=== PATIENT | female | born 1975 | race Caucasian/White ===

== ENCOUNTER → 2018-12-17 16:34 | Outpatient (CLI) | payer BC, SELFPAY ==
[2018-12-17 18:30] LABS: Anion Gap 3 (5-15); BUN 17 mg/dL (7-18); BUN/Creat Ratio 13.6 RATIO (10-20); Calcium,Total 8.6 mg/dL (8.5-10.1); Chloride 104 mmol/L (98-107); Creatinine, Serum 1.25 mg/dL (0.55-1.02); EST Glomerular Filtration Rate 50 mL/min (>60); Est Glom Filt Rate - Afr Amer 60 mL/min (>60); Glucose 79 mg/dL (74-106); Magnesium 2.4 mg/dL (1.6-2.6); Potassium 3.6 mmol/L (3.5-5.1); Sodium Level 135 mmol/L (136-145)
[2018-12-17 18:35] LABS: Vitamin B12 387 pg/mL (211-911); Vitamin D,25 Hydroxy 15.2 ng/mL (29.95-100.01)
== END ==
PROVIDERS: Family Provider Preventive Medicine Occupational Medicine; PCP Preventive Medicine Occupational Medicine; Referring Provider Preventive Medicine Occupational Medicine; Visit Provider Preventive Medicine Occupational Medicine
DX: E03.9 Hypothyroidism, unspecified (principal); R25.2 Cramp and spasm; R20.2 Paresthesia of skin
CPT/HCPCS: 36415; 80048; 82306; 82607; 82746; 83735; 84443

== ENCOUNTER 2018-12-30 09:38 | Emergency (ER) | payer BC, SELFPAY ==
[2018-12-30 09:39] VITALS: BP 155/83; PULSE 113; RESP 16; TEMP 36.9; O2SAT 100; BMI 25.7
--- NOTE | 2018-12-30 09:41 | NURSING ---
NO OLD EKGS
[2018-12-30 09:45] VITALS: BP 135/80; PULSE 117; RESP 13; O2SAT 100
--- NOTE | 2018-12-30 10:01 | EKG12_ITS ---
Test Reason : INCREASED HR Blood Pressure : / mmHG Vent. Rate : 122 BPM Atrial Rate : 122 BPM P-R Int : 150 ms QRS Dur : 088 ms QT Int : 318 ms P-R-T Axes : 080 081 050 degrees QTc Int : 453 ms Sinus tachycardia Nonspecific ST/T Wave Abnormality Confirmed by LATIA SAEED, STEVEN ([id number]), medical transcription editor OBI SAAVEDRA ([id number]) on 01/01/2019 1:17:11 PM Referred By: LUCY Confirmed By:STEVEN JEFFERY MD
--- NOTE | 2018-12-30 10:04 | ED.VISSUMM ---
- ER Visit Summary Date of Service: 12/30/18 Chief Complaint: Palpitation History of Present Illness: The patient is a [address] Ann. She reports that at 8:00 this morning she began having palpitations. Feels as though her heart is racing. States that she is lightheaded. This gets worse when she stands. She has not passed out. She will report this made her slightly sweaty. She denies any chest pain, pressure, or tightness. No nausea, vomiting, or shortness of breath with this. Patient reports that approximately 10 days ago she had her levothyroxine increased from 200 mg a day to 200 mg on even days and 300 mg on odd days. She is not taking this this morning. She did take 300 mg yesterday. She had one cup of coffee this morning on empty stomach. However, this is not unusual for her. Patient has no personal family history of DVT. No recent travel. No calf pain or ankle swelling. She denies any chest pain or change in disinsertion the past month. Physical Examination: Vitals: 98.4, 135/80, 117, 13, 100% on room air which is not hypoxic. General: Well-nourished and well-developed. Head: Normocephalic atraumatic. Neck: Supple, no lymphadenopathy. No JVD. Nontender. Cardiovascular: Tachycardic regular rhythm. No murmurs. Respiratory: No respiratory distress. Clear to auscultation bilaterally. Abdominal: Soft, nontender, nondistended, normal bowel sounds. No guarding, rebound, or peritoneal signs. Back: Nontender. Extremities: Nontender, no edema. Skin: Normal color, no rash. Neurologic: Alert and oriented ?3. Cranial nerves II through XII are intact. Normal strength and sensation. Psych: Normal affect. Test Results: EKG is sinus tach at [address] changes. There is a T wave inversion in lead III. There is artifact from movement. There is no old EKG for comparison. CBC shows a white count of 4.2. Chem-7 shows potassium 3.3, creatinine 1.13, glucose 124. Troponin is negative. TSH is 3.84. Chest x-ray shows no acute disease. Emergency Department Course and Treatment: Patient had a TSH of 65.3 on December 17. She had an IV placed. She was given 1 L of normal saline. Repeat heart rate is in the high 90s. She is resting comfortably. Treatment Plan: Patient feels well and would like to go home. She will be discharged instructions push fluids. I did discuss that she needs follow-up with Dr. Ann for further evaluation and treatment. She does need to make sure that her TSH has stabilized on her new medications. She is instructed not to drink coffee on an empty stomach. Return to the emergency department for any worsening symptoms. Disposition: To home in improved and stable condition. Impression: 1. Sinus tachycardia. This note was generated with [employer] dictation software. It may contain incorrect words, spelling, and punctuation that were not noted in review of the chart prior to signing ED Disposition - Plan for ED Patient: Instructions: ED Palpitations Referrals: Meliton Mcmahon DO [Primary Care Provider] - 3-5 Days
--- NOTE | 2018-12-30 10:15 | RAD_ITS ---
STUDY: X-RAY CHEST REASON FOR EXAM: Female, 43 years old. Chest pain TECHNIQUE: Single AP portable view of the chest. COMPARISON: None. FINDINGS: There is hyperinflation of the lungs consistent with chronic obstructive lung disease (COPD). Lungs are clear. There is no demonstrated pleural abnormality. Normal size heart. Normal mediastinum and fco. Normal visualized pulmonary arteries. Normal visualized aortic arch and descending thoracic aorta. Normal visualized thoracic spine. Normal visualized ribs, clavicles, and shoulders. There is no demonstrated abnormality of the visualized soft tissue structures of the upper abdomen. RAD/Chest 1 View (Portable) IMPRESSION: COPD. Lungs are clear. Electronically Signed: Hua Vazquez DO at 10:49 EDT Tel , Service support ,
[2018-12-30 10:24] LABS: Absolute Neutrophil Count 2.2 X10^3/uL (2.0-7.7); Basophil# 0.01 X10^3/uL; Basophil% 0.2 % (0-1); Eosinophil# 0.01 X10^3/uL; Eosinophils% 0.2 % (0-5); Hematocrit 37.6 % (37-47); Lymphocyte % 37.7 % (19-41); Mean Corp Hgb Conc 31.9 g/gl (32-36); Mean Corpuscular Hgb 28.4 pg (27.0-32.0); Mean Corpuscular Volume 89.1 fL (81-99); Mean Platelet Vol. 11.3 fl (6.2-12.0); Monocyte# 0.38 X10^3/uL; Neutrophil # 2.24 X10^3/uL (2.7-7.7); Neutrophil % 52.9 % (47-70); Platelet Count 252 K/mm3 (150-450); RBC Distribution Width CV 13.9 % (11.6-14.6); RBC Distribution Width SD 44.5 fl (35.1-43.9); Red Blood Count 4.22 M/mm3 (4.2-5.4); White Blood Count 4.2 K/mm3 (4.4-11.0)
[2018-12-30] MEDS: 0.9% Normal Saline 1,000 ML 1000 ML IV (10:24)
[2018-12-30 10:27] LABS: POSITIVE COUNT NO; POSITIVE DIFFERENTIAL NO; POSITIVE MORPHOLOGY NO
[2018-12-30 10:36] LABS: Anion Gap 9 (5-15); BUN 15 mg/dL (7-18); BUN/Creat Ratio 13.3 RATIO (10-20); Chloride 103 mmol/L (98-107); Creatinine, Serum 1.13 mg/dL (0.55-1.02); EST Glomerular Filtration Rate 56 mL/min (>60); Est Glom Filt Rate - Afr Amer 68 mL/min (>60); Estimated Creatinine Clearance 63.07 ml/min; Glucose 124 mg/dL (74-106); Magnesium 1.9 mg/dL (1.6-2.6); Potassium 3.3 mmol/L (3.5-5.1); Sodium Level 136 mmol/L (136-145); Thyroid Stim Hormone (TSH) 3.84 uIU/mL (0.358-3.74)
--- NOTE | 2019-01-02 10:13 | ED.RN ---
2nd liter not given due to d/c.
== END 2018-12-30 11:29 | disposition home or self-care (01) ==
LOC: ED 10:08
PROVIDERS: Emergency Provider Emergency Medicine; Family Provider Preventive Medicine Occupational Medicine; PCP Preventive Medicine Occupational Medicine
DX: R00.0 Tachycardia, unspecified (principal); E03.9 Hypothyroidism, unspecified
CPT/HCPCS: 71045; 80048; 83735; 84443; 84484; 85025; 93005; 96360; 99285; J7030; A4216

== ENCOUNTER → 2020-06-04 10:35 | Outpatient (CLI) | payer BC, SELFPAY | PROVIDERS: PCP Preventive Medicine Occupational Medicine; Referring Provider Family Medicine; Visit Provider Family Medicine | DX: R68.89 Other general symptoms and signs (principal); R51 Headache; J02.9 Acute pharyngitis, unspecified; R09.81 Nasal congestion | CPT/HCPCS: 87635; C9803; U0003 ==

== ENCOUNTER → 2020-06-09 17:36 | Outpatient (CLI) | payer BC, SELFPAY | PROVIDERS: PCP Preventive Medicine Occupational Medicine; Referring Provider Family Medicine; Visit Provider Family Medicine | DX: Z03.818 Encounter for observation for suspected exposure to other biological agents ruled out (principal); R68.89 Other general symptoms and signs | CPT/HCPCS: 87635; C9803; U0003 ==

== ENCOUNTER 2021-10-13 11:58 | Outpatient (CLI) | payer BC, SELFPAY ==
[2021-10-13 15:13] LABS: Hematocrit 39.3 % (37-47); Hemoglobin 12.4 g/dL (12.0-15.0); Mean Corp Hgb Conc 31.6 g/dL (32-36); Mean Corpuscular Hgb 26.3 pg (27.0-32.0); Mean Corpuscular Volume 83.4 fL (81-99); Mean Platelet Vol. 11.3 fl (6.2-12.0); Platelet Count 316 K/mm3 (150-450); RBC Distribution Width CV 13.6 % (11.6-14.6); RBC Distribution Width SD 41.4 fl (35.1-43.9); Red Blood Count 4.71 M/mm3 (4.2-5.4); White Blood Count 4.3 K/mm3 (4.4-11.0)
[2021-10-13 15:57] LABS: ALB/GLOB Ratio 0.9 RATIO (0.9-2.4); AST(SGOT) 14 U/L (15-37); Alanine Aminotransfer ALT/SGPT 16 U/L (13-56); Albumin, Serum 3.6 g/dL (3.2-5.0); Alkaline Phosphatase 62 U/L (45-117); Anion Gap 5 (5-15); BUN 14 mg/dL (7-18); BUN/Creat Ratio 17.1 RATIO (10-20); Calcium,Total 8.8 mg/dL (8.5-10.1); Chloride 106 mmol/L (98-107); Creatinine, Serum 0.82 mg/dL (0.55-1.02); EST Glomerular Filtration Rate 80 mL/min (>60); Est Glom Filt Rate - Afr Amer 97 mL/min (>60); Ferritin 9 ng/mL (8-252); Glucose 83 mg/dL (74-106); Iron 58 ug/dL (50-170); Iron Binding Capacity,Total 366 ug/dL (250-450); Magnesium 2.3 mg/dL (1.6-2.6); PERCENT IRON SATURATION 15.8 % (15.0-55.0); Potassium 3.7 mmol/L (3.5-5.1); Protein, Total 7.6 g/dL (6.4-8.2); Sodium Level 137 mmol/L (136-145); T4 Free Direct 1.36 ng/dL (0.76-1.46); Thyroid Stim Hormone (TSH) 3.78 uIU/mL (0.358-3.74); Vitamin B12 302 pg/mL (211-911); Vitamin D,25 Hydroxy 16.7 ng/mL
== END 2021-10-13 23:59 | disposition short-term general hospital (02) ==
PROVIDERS: PCP Preventive Medicine Occupational Medicine; Referring Provider Internal Medicine Endocrinology, Diabetes & Metabolism; Visit Provider Internal Medicine Endocrinology, Diabetes & Metabolism
DX: E03.9 Hypothyroidism, unspecified (principal); E55.9 Vitamin D deficiency, unspecified; E61.1 Iron deficiency
CPT/HCPCS: 36415; 80053; 82306; 82607; 82728; 83540; 83550; 83735; 84439; 84443; 84481; 85027

== ENCOUNTER 2022-10-28 20:29 | Emergency (ER) | payer BC, SELFPAY ==
[2022-10-28 20:31] VITALS: BP 182/94; PULSE 120; RESP 14; TEMP 36.6; O2SAT 100; BMI 28.3
--- NOTE | 2022-10-28 21:06 | EKG12_ITS ---
Test Reason : limb pain Blood Pressure : / mmHG Vent. Rate : 099 BPM Atrial Rate : 099 BPM P-R Int : 150 ms QRS Dur : 086 ms QT Int : 342 ms P-R-T Axes : 067 061 050 degrees QTc Int : 438 ms Normal sinus rhythm Normal ECG Confirmed by ALBERT SAEED, JASWANT ([id number]), copy editor OBI SAAVEDRA ([id number]) on 10/30/2022 1:14:06 PM Referred By: Adán Confirmed By:JASWANT PRICE MD
--- NOTE | 2022-10-28 21:13 | EDS_ITS ---
HPI History of Present Illness Chief Complaint: Other, Pain/Inj Informant: patient Narrative Narrative: Patient presents for a couple different problems. She states she has had pain in her left lower leg below the knee for the last month as well as some occasional tingling in that area that goes down into her foot, encompassing all of it. In the last 2 days, she has had brief episodes of intense burning in her left upper arm with no other associated acute symptoms. She denies chest pain, dyspnea, lightheadedness, palpitations, or weakness in the extremity. The burning feels like a tingling nerve pain and is in the upper part of her lateral upper arm. She denies any injuries to her head, neck, or elsewhere. She states in the last month she has noticed a couple of bruises on her left calf that has been gradually going away. No history of DVT or PE. She had a car ride to and from [place] in August. No swelling in the left lower extremity. No recent hospitalization or surgeries. No significant family history of coronary disease at young ages. She has not a smoker nor does she use cocaine or other substances. [facility] Medical History Hypothyroidism Home Medications cholecalciferol (vitamin D3) 50 mcg (2,000 unit) capsule (Vitamin D3) 2,000 unit PO DAILY 12/30/18 [History Last Taken Unknown] levothyroxine 100 mcg tablet 225 mcg PO DAILY 12/30/18 [History Last Taken Unknown] Allergy/AdvReac Type Severity Reaction Status Date / Time amoxicillin [From Trimox] Allergy Hives Verified 10/28/22 20:31 doxycycline Allergy Hives Verified 10/28/22 20:31 Penicillins [PCN] Allergy Hives Verified 10/28/22 20:31 Surgical History History of tonsillectomy Social History Smoking Status: Never smoker ROS ROS ED Constitutional Constitutional ED: Denies chills or fever(s) Eyes Eyes: Denies change in vision or diplopia ENT ENT ED: Denies rhinorrhea or sore throat Cardiovascular Cardiovascular: Denies chest pain, lightheadedness, palpitations or syncope Respiratory/Chest Respiratory/Chest: Denies cough or dyspnea Gastrointestinal Gastrointestinal: Denies abdominal pain, diarrhea, nausea or vomiting Genitourinary Genitourinary ED: Denies dysuria or hematuria Musculoskeletal Musculoskeletal: Reports as per HPI, extremity pain and other Details: neck pain at times ; Denies back pain Integumentary Denies abscess or rash Neurologic Neurologic: Reports paresthesias; Denies headache(s) or weakness Psychiatric Psychiatric: Denies anxiety or suicidal thoughts Hematologic/Lymphatic Hematologic/Lymphatic: Reports easy bruising; Denies lymphadenopathy EXAM Physical Exam Const Vital Signs: 10/28/22 20:31 10/28/22 20:39 10/28/22 22:08 Temperature 98 F Temperature Source Temporal Pulse Rate 120 H 85 Respiratory Rate 14 16 Respiratory Effort Normal Respiratory Pattern Normal Blood Pressure 182/94 H 142/87 H Blood Pressure Mean 123 105 Pulse Ox 100 97 Oxygen Delivery Method Room Air Room Air 10/28/22 22:40 Temperature 98.7 F Temperature Source Pulse Rate 88 Respiratory Rate 16 Respiratory Effort Respiratory Pattern Blood Pressure 139/88 H Blood Pressure Mean Pulse Ox 98 Oxygen Delivery Method Positive well nourished and well developed General Appearance ED: well developed and NAD HEENT Reports moist mucous membranes normocephalic and atraumatic Eyes PERRL and EOMs intact bilaterally Neck full ROM, no lymphadenopathy and supple Resp normal respiratory effort and clear to auscultation bilaterally Cardio regular rate, regular rhythm and no murmurs GI non-tender and non-distended Auscultation: normoactive bowel sounds Palpation: soft Back/Spine no CVA tenderness General Back: other FROM Extremity normal to inspection Extremity Narrative: Negative left lower extremity straight leg raise. Normal dorsalis pedis pulse. Mild left calf tenderness without palpable cord, no edema. No tenderness in thigh. General Extremety ED: Negative for edema, pulses abnormal or tenderness General Extremity: Negative for edema or pulses abnormal Neuro oriented x3, CN's II-XII intact bilaterally and no sensory deficits noted Neuro Narrative: Mild subjective decreased sensation entire left foot when compared with the right, but sensation grossly intact. Sensorium / Orientation: awake and alert Motor Exam: strength 5/5 throughout Skin no rashes or lesions noted and no wounds MDM MDM MDM Narrative Medical decision making narrative: Performed a cardiac work-up on this middle-aged female with unexplained intermittent left arm burning. It is unremarkable. I did a D-dimer only because the patient presents with unexplained left calf pain at a time when venous duplex ultrasound of the lower extremities is not available; it was slightly elevated. She does have some bruises, this could cause a false positive D-dimer. Regardless, she will need an outpatient ultrasound of her left lower extremity. Her symptoms are at or distal to the calf so she does not require empiric anticoagulation in the meantime. With regards to her left arm pain, differential includes cervical radiculopathy, it could have been stable angina that may or may not have been related to blood pressure elevation since she presented here with a blood pressure of 182/94, however without treatment her pressure is now 139/88. She states she does have neck problems. I recommend close outpatient follow-up with her doctor regarding all of this but there is no evidence of acute coronary syndrome at this time, and she will follow-up for an ultrasound of her leg which we have ordered and scheduled for her to be done after the weekend. Lab Data Attestation: I reviewed the patient's lab results. Labs: Laboratory Results - last 24 hr 10/28/22 10/28/22 10/28/22 21:20 21:20 21:20 WBC 10.8 RBC 4.64 Hgb 13.1 Hct 39.6 MCV 85.3 MCH 28.2 MCHC 33.1 RDW Std Deviation 42.5 RDW Coeff of Roney 13.6 Plt Count 321 MPV 9.7 Immature Gran % (Auto) 0.600 Neut % (Auto) 58.0 Lymph % (Auto) 32.7 [place] % (Auto) 8.0 Eos % (Auto) 0.3 Baso % (Auto) 0.4 Absolute Neuts (auto) 6.3 Absolute Lymphs (auto) 3.53 Nucleated RBC % 0 D-Dimer Quant (PE/DVT) 0.61 H* Sodium 140 Potassium 3.3 L Chloride 102 Carbon Dioxide 31.0 Anion Gap 7 BUN 20 H Creatinine 1.21 H Estim Creat Clear Calc 56.49 Est GFR (MDRD) Af Amer 62 Est GFR (MDRD) Non-Af 51 L BUN/Creatinine Ratio 16.5 Glucose 132 H Calcium 8.9 Troponin I High Sens 11 Rhythm Strip Rhythm Strip: Sinus Rhythm Rate: 95 Ectopy: None EKG Initial EKG: Attestation: I personally reviewed and interpreted this EKG as follows: Interpretation: Sinus Rhythm and No Acute Injury Pattern Comments: Normal EKG Discharge Plan Triage Chief Complaint: Other, Pain/Inj ED Provider: Romulo Rod Dx/Rx/DC Orders Clinical Impression: Arm pain, left, Pain in left lower leg Instructions: ED Radiculopathy, Cervical, ED Muscle Strain, Extremity Prescriptions: No Action levothyroxine 100 MCG tablet 225 mcg PO DAILY Rx Instructions: EVEN DAYS cholecalciferol (vitamin D3) [Vitamin D3] 2,000 UNIT capsule 2,000 unit PO DAILY Other Ambulatory Orders: Venous Duplex US, Unilateral (Stat) Facility: [facility] - Location: [facility] Ordered By: Dr. Romulo Rod Primary Care Provider: Meliton Mcmahon Referrals: Meliton Mcmahon DO [Primary Care Provider] - (ABEL after you have your ultrasound of your leg) Disposition Disposition: Home, Self Care
[2022-10-28 21:28] LABS: Absolute Lymphocyte Count 3.53 X10^3/uL (0.83-4.51); Absolute Neutrophil Count 6.3 X10^3/uL (2.0-7.7); Basophil# 0.04 X10^3/uL; Basophil% 0.4 % (0-1); Eosinophil# 0.03 X10^3/uL; Eosinophils% 0.3 % (0-5); Hematocrit 39.6 % (37-47); Hemoglobin 13.1 g/dL (12.0-15.0); Lymphocyte # 3.53 X10^3/ul (0.83-4.51); Lymphocyte % 32.7 % (19-41); Mean Corp Hgb Conc 33.1 g/dL (32-36); Mean Corpuscular Hgb 28.2 pg (27.0-32.0); Mean Corpuscular Volume 85.3 fL (81-99); Mean Platelet Vol. 9.7 fl (6.2-12.0); Monocyte# 0.87 X10^3/uL; NRBC Flagged by Analyzer 0 % (0-5); Neutrophil # 6.27 X10^3/uL (2.7-7.7); Platelet Count 321 K/mm3 (150-450); RBC Distribution Width CV 13.6 % (11.6-14.6); RBC Distribution Width SD 42.5 fl (35.1-43.9); Red Blood Count 4.64 M/mm3 (4.2-5.4); White Blood Count 10.8 K/mm3 (4.4-11.0)
[2022-10-28 21:43] LABS: Anion Gap 7 (5-15); BUN 20 mg/dL (7-18); BUN/Creat Ratio 16.5 RATIO (10-20); Calcium,Total 8.9 mg/dL (8.5-10.1); Chloride 102 mmol/L (98-107); Creatinine, Serum 1.21 mg/dL (0.55-1.02); EST Glomerular Filtration Rate 51 mL/min (>60); Est Glom Filt Rate - Afr Amer 62 mL/min (>60); Estimated Creatinine Clearance 56.49 ml/min; Glucose 132 mg/dL (74-106); Potassium 3.3 mmol/L (3.5-5.1); Sodium Level 140 mmol/L (136-145); Troponin-I HS 11 pg/mL (3.0-54.0)
[2022-10-28 21:45] LABS: D-Dimer Quantitative (DVT/PE) 0.61 FEU/ug/m (0.27-0.49)
[2022-10-28 22:08] VITALS: BP 142/87; PULSE 85; RESP 16; O2SAT 97
[2022-10-28 22:40] VITALS: BP 139/88; PULSE 88; RESP 16; TEMP 37.1; O2SAT 98
== END 2022-10-28 22:45 | disposition home or self-care (01) ==
PROVIDERS: Emergency Provider Emergency Medicine; PCP Preventive Medicine Occupational Medicine; Visit Provider Emergency Medicine
DX: M79.602 Pain in left arm (principal); M79.662 Pain in left lower leg; E03.9 Hypothyroidism, unspecified; Z79.899 Other long term (current) drug therapy
CPT/HCPCS: 80048; 84484; 85025; 85379; 93005; 99284

== ENCOUNTER → 2022-10-29 | Outpatient (CLI) | payer BC, SELFPAY ==
--- NOTE | 2022-10-29 10:51 | VDLE_ITS ---
Reason For Study: Pain LLE RIGHT LEFT CFV is compressible, spontaneous, phasic, GSV is normal. competent and demonstrates normal CFV is compressible, spontaneous, phasic, augmentation. competent, and demonstrates normal Procedure augmentation. This is a venous duplex using B-mode, color FV is compressible, spontaneous, phasic, flow and spectral Doppler. competent and demonstrates normal Exam performed portable in ED. augmentation. A preliminary report was called and/or faxed POP V is compressible, spontaneous, phasic, to ED. competent and demonstrates normal augmentation. T/P Trunk is compressible. PTV is compressible. LT PerV is compressible. VL/Venous Duplex US, Unilateral Interpretation Summary There is no evidence of left lower extremity deep vein thrombosis. Left great s aphenous vein appears patent and compressible segmentally. Normal flow patterns right common femoral vein Ordering Physician: Romulo Rod Referring Physician: Meliton Mcmahon Performed By: Ro Newsome RDCS, RVT
== END | disposition home or self-care (01) ==
LOC: US 10:27
PROVIDERS: PCP Preventive Medicine Occupational Medicine; Referring Provider Emergency Medicine; Visit Provider Emergency Medicine
DX: M79.605 Pain in left leg (principal)
CPT/HCPCS: 93971

== ENCOUNTER 2023-12-08 12:31 | Inpatient (IN) | payer BC, SELFPAY ==
[2023-12-08] VITALS (24 sets, daily range): BP systolic 95–148; BP diastolic 62–94; PULSE 73–101; RESP 13–22; TEMP 36.3–37.2; O2SAT 97–100; BMI 33.8
--- NOTE | 2023-12-08 12:38 | RAD_ITS ---
STUDY: X-RAY - RIGHT ANKLE REASON FOR EXAM: Female, 48 years old. Fall. TECHNIQUE: 3 view(s) of the ankle. COMPARISON: None. FINDINGS: There is angulated fractures of the distal fibula and distal tibia with diffuse soft tissue swelling. The ankle mortise is intact. There are no radiodense foreign bodies. RAD/Ankle min 3 Views IMPRESSION: There are fractures of the distal tibia and distal fibula with diffuse soft tissue swelling. Electronically Signed: Kevon Hills MD at 13:30 EDT ,
--- NOTE | 2023-12-08 12:40 | ED.VIS.LOWEX ---
HPI History of Present Illness HPI Narrative: Patient presents with right ankle injury that occurred today. Patient states she was on a ladder cleaning her gutters. Patient states the ladder fell out from under her and she fell approximately 6 feet to the ground. Patient states she looked down at her ankle and saw the bone sticking out. Patient states her pain is localized to the right ankle. Patient denies any head injury or loss of consciousness. Patient is unsure of her last tetanus Chief Complaint: Fall Informant: patient Occured/Mechanism Mechanism/Context: Yes fall Onset/Context/Timing Onset: Today Context: Sudden Onset Timing: Continuous Quality of Pain: Aching Location: Right ankle Worsened by: Movement Relieved by: Rest Associated Symptoms Associated Symptoms: Negative for Parasthesia, Weakness or Loss of Funtion Narrative Tetanus Immunization: Unknown PFSH [facility] Medical History Hypothyroidism Home Medications cholecalciferol (vitamin D3) 50 mcg (2,000 unit) capsule (Vitamin D3) 2,000 unit PO DAILY 12/30/18 [History Last Taken Unknown] levothyroxine 100 mcg tablet 225 mcg PO DAILY 12/30/18 [History Last Taken Unknown] Allergy/AdvReac Type Severity Reaction Status Date / Time amoxicillin [From Trimox] Allergy Hives Verified 10/28/22 20:31 doxycycline Allergy Hives Verified 10/28/22 20:31 Penicillins [PCN] Allergy Hives Verified 10/28/22 20:31 Surgical History History of tonsillectomy Social History Smoking Status: Never smoker ROS ROS ED Constitutional Constitutional ED: Denies chills or fever(s) Eyes Eyes: Denies blurry vision or change in vision ENT ENT ED: Denies rhinorrhea or sore throat Cardiovascular Cardiovascular: Denies chest pain or palpitations Respiratory/Chest Respiratory/Chest: Denies cough or dyspnea Gastrointestinal Gastrointestinal: Denies nausea or vomiting Genitourinary Genitourinary ED: Denies dysuria or hematuria Musculoskeletal Musculoskeletal: Denies back pain or neck pain Integumentary Denies abscess or rash Neurologic Neurologic: Denies headache(s) or weakness Allergic/Immunologic Allergic/Immunologic ED: Denies mouth swelling or urticaria EXAM Physical Exam Const Vital Signs: 12/08/23 12:31 12/08/23 12:33 12/08/23 13:09 Temperature 98.1 F Temperature Source Temporal Pulse Rate 101 H 87 Respiratory Rate 18 16 Respiratory Effort Normal Respiratory Depth Normal Respiratory Pattern Normal Blood Pressure 123/82 H Blood Pressure Mean 95 Pulse Ox 97 Oxygen Delivery Method Room Air Room Air 12/08/23 13:10 12/08/23 13:20 12/08/23 13:30 Temperature Temperature Source Pulse Rate 81 82 82 Respiratory Rate 17 15 20 H Respiratory Effort Respiratory Depth Respiratory Pattern Blood Pressure 135/79 H 129/68 H Blood Pressure Mean 97 84 Pulse Ox 99 100 Oxygen Delivery Method 12/08/23 13:40 12/08/23 13:45 12/08/23 13:50 Temperature Temperature Source Pulse Rate 82 88 81 Respiratory Rate 18 22 H 14 Respiratory Effort Respiratory Depth Respiratory Pattern Blood Pressure 120/86 H Blood Pressure Mean 97 Pulse Ox 99 100 99 Oxygen Delivery Method 12/08/23 14:00 12/08/23 14:10 12/08/23 14:15 Temperature Temperature Source Pulse Rate 78 86 84 Respiratory Rate 14 16 14 Respiratory Effort Respiratory Depth Respiratory Pattern Blood Pressure 132/85 H 133/94 H Blood Pressure Mean 100 103 Pulse Ox 100 99 100 Oxygen Delivery Method Room Air 12/08/23 14:20 12/08/23 14:30 12/08/23 14:40 Temperature Temperature Source Pulse Rate 76 85 73 Respiratory Rate 15 17 13 Respiratory Effort Respiratory Depth Respiratory Pattern Blood Pressure 126/80 H 128/85 H Blood Pressure Mean 96 99 Pulse Ox 100 100 98 Oxygen Delivery Method 12/08/23 14:45 12/08/23 14:50 12/08/23 15:00 Temperature Temperature Source Pulse Rate 73 79 81 Respiratory Rate 17 13 21 H Respiratory Effort Respiratory Depth Respiratory Pattern Blood Pressure 120/85 H 128/85 H Blood Pressure Mean 96 98 Pulse Ox 100 99 100 Oxygen Delivery Method Positive well nourished and well developed General Appearance ED: well developed and NAD Neck full ROM and supple Resp normal respiratory effort and clear to auscultation bilaterally Cardio regular rate and regular rhythm GI non-tender and non-distended Palpation: soft Extremity Extremity Narrative: There is an open wound over the medial aspect of the right ankle. There is tenderness, edema, and ecchymosis. There is an obvious deformity noted. Range of motion was limited in all motions of the right ankle secondary to pain. Sensation was intact to light touch in all digits. Capillary refill was less than 2 seconds in all digits. There is a good pedal pulse noted. Neuro oriented x3, CN's II-XII intact bilaterally, moves all extremities and no sensory deficits noted Sensorium / Orientation: alert Psych mental status grossly normal MDM MDM MDM Narrative Medical decision making narrative: Patient was advised that this is most likely an open fracture. Patient was given a tetanus booster. Patient was given a dose of clindamycin here. X-rays of the right ankle will be obtained to assess for fracture. CBC will be obtained to assess for leukocytosis and anemia. Basic metabolic profile will be obtained to assess for electrolyte abnormality and renal function. Patient was given 4 mg of morphine by EMS. Patient states she does not want any further pain medication at this time. Patient was advised to let me know if she would require any further pain medication. Lab Data Attestation: I reviewed the patient's lab results. Lab results narrative: CBC was reviewed. There is a mild anemia with a hemoglobin of 11.7 and hematocrit of 36.8. White blood cell count was normal. Basic metabolic profile was reviewed and was within normal limits. Labs: Laboratory Results - last 24 hr 12/08/23 12:50 WBC 5.5 RBC 4.06 L Hgb 11.7 L Hct 36.8 L MCV 90.6 MCH 28.8 MCHC 31.8 L RDW Std Deviation 45.8 H RDW Coeff of Roney 13.7 Plt Count 268 MPV 10.5 Immature Gran % (Auto) 0.400 Neut % (Auto) 51.3 Lymph % (Auto) 38.9 [place] % (Auto) 8.3 Eos % (Auto) 0.7 Baso % (Auto) 0.4 Absolute Neuts (auto) 2.8 Absolute Lymphs (auto) 2.15 Nucleated RBC % 0 Sodium 141 Potassium 3.7 Chloride 110 H Carbon Dioxide 26.0 Anion Gap 5 BUN 13 Creatinine 0.95 Estim Creat Clear Calc 88.06 Est GFR (MDRD) Af Amer 81 Est GFR (MDRD) Non-Af 67 BUN/Creatinine Ratio 13.7 Glucose 106 Calcium 8.3 L Radiography Diagnostic Testing: Clinical Impression(s) from Imaging Studies Ankle X-Ray 12/08/23 12:38 IMPRESSION: There are fractures of the distal tibia and distal fibula with diffuse soft tissue swelling. Electronically Signed: Kevon Hills MD at 13:30 EDT , X-rays of the right ankle were obtained. There are 3 views. On my independent interpretation, there are complete displaced fractures of the distal tibia and fibula. There is angulation of the distal fragment laterally. There is comminution of the distal tibia fracture. Radiologist also interpreted the x-rays and agrees. Treatment and Re-Evaluation Narrative: Patient was advised of her findings. Patient is resting comfortably on reevaluation. Patient does not want any further pain medication at this time. Case was discussed with podiatry. He will take the patient to the OR today to wash out the wound. Patient understands and is agreeable with the plan. All questions were answered. Discharge Plan Triage Chief Complaint: Fall ED Provider: Kurt Strange Dx/Rx/DC Orders Clinical Impression: Open fracture of distal end of fibula and tibia, Fall from ladder Prescriptions: No Action levothyroxine 100 MCG tablet 225 mcg PO DAILY Rx Instructions: EVEN DAYS cholecalciferol (vitamin D3) [Vitamin D3] 2,000 UNIT capsule 2,000 unit PO DAILY Primary Care Provider: Meliton Mcmahon Referrals: Meliton Mcmahon DO [Primary Care Provider] - Disposition Disposition: Acute Care Hospital [facility]
[2023-12-08 13:01] LABS: Absolute Lymphocyte Count 2.15 X10^3/uL (0.83-4.51); Absolute Neutrophil Count 2.8 X10^3/uL (2.0-7.7); Basophil# 0.02 X10^3/uL; Basophil% 0.4 % (0-1); Eosinophil# 0.04 X10^3/uL; Eosinophils% 0.7 % (0-5); Hematocrit 36.8 % (37-47); Hemoglobin 11.7 g/dL (12.0-15.0); Lymphocyte # 2.15 X10^3/ul (0.83-4.51); Lymphocyte % 38.9 % (19-41); Mean Corp Hgb Conc 31.8 g/dL (32-36); Mean Corpuscular Hgb 28.8 pg (27.0-32.0); Mean Corpuscular Volume 90.6 fL (81-99); Mean Platelet Vol. 10.5 fl (6.2-12.0); Monocyte# 0.46 X10^3/uL; Monocyte% 8.3 % (0-10); NRBC Flagged by Analyzer 0 % (0-5); Neutrophil # 2.84 X10^3/uL (2.7-7.7); Neutrophil % 51.3 % (47-70); Platelet Count 268 K/mm3 (150-450); RBC Distribution Width CV 13.7 % (11.6-14.6); RBC Distribution Width SD 45.8 fl (35.1-43.9); Red Blood Count 4.06 M/mm3 (4.2-5.4); White Blood Count 5.5 K/mm3 (4.4-11.0)
[2023-12-08] MEDS: Diphth,Pertuss(Acell),Tet Vac 0.5 ML Vial IM (13:11)
[2023-12-08] MEDS: Clindamycin 900 MG/50 ML BAG 75 MG IV ×2 (13:11→21:01)
[2023-12-08 13:16] LABS: Anion Gap 5 (5-15); BUN 13 mg/dL (7-18); BUN/Creat Ratio 13.7 RATIO (10-20); Calcium,Total 8.3 mg/dL (8.5-10.1); Chloride 110 mmol/L (98-107); Creatinine, Serum 0.95 mg/dL (0.55-1.02); EST Glomerular Filtration Rate 67 mL/min (>60); Est Glom Filt Rate - Afr Amer 81 mL/min (>60); Estimated Creatinine Clearance 88.06 ml/min; Glucose 106 mg/dL (74-106); Potassium 3.7 mmol/L (3.5-5.1); Sodium Level 141 mmol/L (136-145)
[2023-12-08] MEDS: Ondansetron 4 MG/2 ML Vial IV (13:57)
[2023-12-08] MEDS: Morphine 4 MG/ML Syringe IV (13:57)
--- NOTE | 2023-12-08 17:29 | PCM.HP.STD ---
HPI - General General Date of Admission: 12/08/23 Date of Service: 12/08/23 Chief Complaint: Open fracture right lower extremity HPI Narrative CHUYITA TIDWELL, is a 48 F who presents PMHx of hypothyroid. She is otherwise healthy and does take levothyroxine 200 mcg daily. She states that early this afternoon she set up a stable locking double-sided ladder to get up to the gutters in order to clean them. She states that she did set this up in the grass which looking back may have been too soft for the latter and thus the ladder began to slide out from under her and she fell from roughly 6 feet to the ground. Patient states she had immediate pain and looked at the ankle and saw a piece of bone sticking out. Patient denies hitting her head. Denies back pain or loss of consciousness. She did present to the [facility] ED by way of squad and tetanus booster was given. Podiatry was consulted for immediate surgical intervention. [facility] Medical History (Updated 12/09/23 @ 00:10 by Rebel Lanier) delivery delivered Hypothyroidism Home Medications levothyroxine 200 mcg tablet 200 mcg PO DAILY 12/08/23 [History Last Taken 12/07/23] Allergy/AdvReac Type Severity Reaction Status Date / Time amoxicillin [From Trimox] Allergy Hives Verified 10/28/22 20:31 doxycycline Allergy Hives Verified 10/28/22 20:31 Penicillins [PCN] Allergy Hives Verified 10/28/22 20:31 Surgical History History of tonsillectomy Social History Smoking Status: Never smoker ROS Constitutional Constitutional: Denies anorexia, change in weight, chills, fever(s) or headache(s) Eyes Eyes: Denies blurry vision, change in vision or diplopia ENT HEENT: Denies dizziness, dysphagia, nasal congestion, nasal discharge, sinus pressure or sore throat Cardiovascular Cardiovascular: Denies chest pain, claudication, cold extremities, numbness in extremities or palpitations Respiratory/Chest Respiratory/Chest: Denies chest congestion, cough, dyspnea or shortness of breath at rest Gastrointestinal Gastrointestinal: Denies abdominal pain, constipation, diarrhea, nausea or vomiting Genitourinary Genitourinary: Denies dysuria, hematuria, urinary frequency, urinary hesitancy, urinary incontinence or urinary urgency Musculoskeletal Musculoskeletal: Denies joint pain, joint stiffness or joint swelling Integumentary Integumentary: Denies jaundice, lesions, pruritus or rash Neurologic Neurologic: Denies dizziness, numbness or seizures Psychiatric Psychiatric: Denies anxiety or depression Endocrine Endocrinology: Denies cold intolerance or heat intolerance Hematologic/Lymphatic Hematologic/Lymphatic: Denies easy bleeding or easy bruising Allergic/Immunologic Allergic/Immunologic: Denies wheezing Vital Signs Vital Signs Vital Signs: 12/08/23 12:31 12/08/23 12:33 12/08/23 13:09 Temperature 98.1 F Temperature Source Temporal Pulse Rate 101 H 87 Respiratory Rate 18 16 Respiratory Effort Normal Respiratory Depth Normal Respiratory Pattern Normal Blood Pressure 123/82 H Blood Pressure Mean 95 Blood Pressure Source Blood Pressure Position Blood Pressure Location Pulse Ox 97 Oxygen Delivery Method Room Air Room Air 12/08/23 13:10 12/08/23 13:20 12/08/23 13:30 Temperature Temperature Source Pulse Rate 81 82 82 Respiratory Rate 17 15 20 H Respiratory Effort Respiratory Depth Respiratory Pattern Blood Pressure 135/79 H 129/68 H Blood Pressure Mean 97 84 Blood Pressure Source Blood Pressure Position Blood Pressure Location Pulse Ox 99 100 Oxygen Delivery Method 12/08/23 13:40 12/08/23 13:45 12/08/23 13:50 Temperature Temperature Source Pulse Rate 82 88 81 Respiratory Rate 18 22 H 14 Respiratory Effort Respiratory Depth Respiratory Pattern Blood Pressure 120/86 H Blood Pressure Mean 97 Blood Pressure Source Blood Pressure Position Blood Pressure Location Pulse Ox 99 100 99 Oxygen Delivery Method 12/08/23 14:00 12/08/23 14:10 12/08/23 14:15 Temperature Temperature Source Pulse Rate 78 86 84 Respiratory Rate 14 16 14 Respiratory Effort Respiratory Depth Respiratory Pattern Blood Pressure 132/85 H 133/94 H Blood Pressure Mean 100 103 Blood Pressure Source Blood Pressure Position Blood Pressure Location Pulse Ox 100 99 100 Oxygen Delivery Method Room Air 12/08/23 14:20 12/08/23 14:30 12/08/23 14:40 Temperature Temperature Source Pulse Rate 76 85 73 Respiratory Rate 15 17 13 Respiratory Effort Respiratory Depth Respiratory Pattern Blood Pressure 126/80 H 128/85 H Blood Pressure Mean 96 99 Blood Pressure Source Blood Pressure Position Blood Pressure Location Pulse Ox 100 100 98 Oxygen Delivery Method 12/08/23 14:45 12/08/23 14:50 12/08/23 15:00 Temperature Temperature Source Pulse Rate 73 79 81 Respiratory Rate 17 13 21 H Respiratory Effort Respiratory Depth Respiratory Pattern Blood Pressure 120/85 H 128/85 H Blood Pressure Mean 96 98 Blood Pressure Source Blood Pressure Position Blood Pressure Location Pulse Ox 100 99 100 Oxygen Delivery Method 12/08/23 15:49 12/08/23 15:49 12/08/23 16:00 Temperature 97.6 F L 98.7 F 98.9 F Temperature Source Temporal Temporal Pulse Rate 86 78 78 Respiratory Rate 16 18 16 Respiratory Effort Respiratory Depth Respiratory Pattern Blood Pressure 148/76 H 132/76 H Blood Pressure Mean 100 94 Blood Pressure Source Monitor Blood Pressure Position Supine Blood Pressure Location Right Arm Pulse Ox 99 98 97 Oxygen Delivery Method Nasal Cannula Room Air 12/08/23 17:00 Temperature 98.4 F Temperature Source Temporal Pulse Rate 78 Respiratory Rate 16 Respiratory Effort Respiratory Depth Respiratory Pattern Blood Pressure 138/64 H Blood Pressure Mean 88 Blood Pressure Source Blood Pressure Position Blood Pressure Location Pulse Ox 100 Oxygen Delivery Method Room Air Weight Weight: 98.1 kg Body Mass Index (BMI) 33.8 Physical Exam Const alert, oriented x3 and no apparent distress General Appearance: cooperative HEENT normocephalic Eyes General Eye: normal appearance of both eyes Neck General: normal visual inspection Lymph Lymphatic: no lymphadenopathy noted and no lymphedema noted Resp normal respiratory effort Cardio regular rate and regular rhythm GI soft to palpation and non-tender Extremity Extremity Narrative: Right lower extremity: Vascular: DP and PT pulses palpable. Capillary fill time brisk to digits of the foot. Normal temperature gradient proximal to distal. There is hair growth to the digits noted. Neurological: Epicritic sensation intact. No focal deficits noted. Does have range of motion of digits and ankle however ankle joint range of motion is limited secondary to fracture. Dermatological: There is an open fracture of the tibia noted to the medial lower extremity with a roughly a 2 to 3 cm wound noted to the medial lower extremity just proximal to the ankle joint with exposure of the tibia. There is surrounding soft tissue edema of the lower extremity with ecchymosis secondary to open fracture. Musculoskeletal: Range of motion limited in all motions of the right ankle joint secondary to pain and fracture of the right lower extremity. Neuro oriented x3 Results Lab / Micro Data 12/08/23 12:50 12/08/23 12:50 Labs: Laboratory Results - last 24 hr 12/08/23 12:50: WBC 5.5, RBC 4.06 L, Hgb 11.7 L, Hct 36.8 L, MCV 90.6, MCH 28.8, MCHC 31.8 L, RDW Std Deviation 45.8 H, RDW Coeff of Roney 13.7, Plt Count 268, MPV 10.5, Immature Gran % (Auto) 0.400, Neut % (Auto) 51.3, Lymph % (Auto) 38.9, Ritchie % (Auto) 8.3, Eos % (Auto) 0.7, Baso % (Auto) 0.4, Absolute Neuts (auto) 2.8, Absolute Lymphs (auto) 2.15, Nucleated RBC % 0, Sodium 141, Potassium 3.7, Chloride 110 H, Carbon Dioxide 26.0, Anion Gap 5, BUN 13, Creatinine 0.95, Estim Creat Clear Calc 88.06, Est GFR (MDRD) Af Amer 81, Est GFR (MDRD) Non-Af 67, BUN/Creatinine Ratio 13.7, Glucose 106, Calcium 8.3 L Imaging Radiology Impression Ankle X-Ray 12/08/23 12:38 IMPRESSION: There are fractures of the distal tibia and distal fibula with diffuse soft tissue swelling. Electronically Signed: Kevon Hills MD at 13:30 EDT , Assessment & Plan Assessment/Plan (1) Open fracture of distal end of fibula and tibia: (2) Fall from ladder: (3) Pain in right lower leg: (4) Hypothyroidism: PLAN: Plan Patient seen and evaluated in the ED There is an open fracture of the tibia noted to the medial lower extremity with a roughly a 2 to 3 cm wound noted to the medial lower extremity just proximal to the ankle joint with exposure of the tibia. There is surrounding soft tissue edema of the lower extremity with ecchymosis secondary to open fracture. She does demonstrate palpable pedal pulses with adequate capillary fill time. There is no paresthesia or sensory deficit. Neurovascular status is intact. Discussed with patient the need for emergent washout and fixation of her fracture. Discussed with the patient that this is a nonelective procedure and needs to be done to decrease risk of infection and optimize healing. Patient is in agreement with this. Discussed with the patient procedure in detail. Discussed risk and benefits of the procedure in detail. Discussed the risks include but are not limited to the following: Pain, continued pain, complex regional pain syndrome, infection, neuritis/numbness, dehiscence, delayed healing/nonhealing, malunion/nonunion, need for further surgical intervention/procedures, scarring/poor cosmetic result, inability to wear shoe gear, difficulty with ambulation, inability to walk, post traumatic arthritis, addiction to pain medication, bleeding, blood clot, stroke, heart attack, allergic reaction, loss of function, loss of limb, loss of life. Patient understands these risks and was able to repeat these back. Consent was obtained and signed by patient freely. Operating limb was signed prior to entering the OR. Patient scheduled for emergent washout of her open fracture of the right lower extremity with primary ORIF versus application of external fixator. Following procedure patient to be admitted for continued IV antibiotics and pain management. I will continue to follow while in house. Jr. Maame Mccormack.P.M. [facility] [phone]
--- NOTE | 2023-12-08 19:10 | RAD_ITS ---
EXAM: XR RIGHT ANKLE COMPLETE, 3 OR MORE VIEWS CLINICAL INDICATION: FX TECHNIQUE: 8 fluoroscopic images are obtained of the right ankle and at about 6:14 PM. COMPARISON: Right ankle radiographs performed earlier on this same date at about 12:55 PM. FINDINGS: The initial 3 views again demonstrate angulated fractures of the distal tibia and fibula. The following images show interval placement of metallic fixation plate and screws transfixing both the distal fibular shaft fracture and the distal tibial fracture; both the tibial and fibular fracture fragments are transfixed in anatomic alignment, without significant displacement or angulation. 260.7 seconds of fluoroscopy time was utilized with dosage of 6.89mGy. . Electronically Signed: Darci Field MD at 22:46 EDT , RAD/Ankle min 3 Views IMPRESSION: undefined
[2023-12-08] MEDS: Vancomycin IV 1,000 MG/20 ML Vial 1000 MG OPERA.SITE (22:00)
--- NOTE | 2023-12-08 23:00 | RAD_ITS ---
EXAM: XR RIGHT ANKLE COMPLETE, 3 OR MORE VIEWS CLINICAL INDICATION: Post-op ORIF open fracture (PACU) TECHNIQUE: Frontal, lateral and oblique views of the right ankle. COMPARISON: Preoperative and intraoperative radiographs of the right ankle, performed earlier on this same date. FINDINGS: 3 postoperative views of the right ankle are obtained through cast material. BONES/JOINTS: A transversely oriented fracture of the distal fibular shaft is again noted, transfixed by surgical fixation plate and screws; the fibular fracture fragments are transfixed in anatomic alignment. The comminuted fracture of the distal tibial metaphysis is again noted to be transfixed by fixation plate and screws; the major fracture fragments are transfixed in relative anatomic alignment. Lateral view shows 3 mm step off along the articular surface of the tibial plafond indicating intra-articular extension of the fracture line, not well seen on the AP or oblique views. Ankle joint space does not appear abnormally widened. No sclerotic or destructive changes observed. SOFT TISSUES: Postoperative soft tissue swelling and minimal soft tissue gas noted about the ankle. RAD/Ankle min 3 Views IMPRESSION: Acute fractures of the distal tibia and fibula are again noted, transfixed by surgical fixation plates and screws. The lateral postoperative view shows intra-articular extension of the distal tibial fracture line with step off along the articular surface of the tibial plafond. Electronically Signed: Darci Field MD at 0:14 EDT ,
[2023-12-09] VITALS (7 sets, daily range): BP systolic 105–126; BP diastolic 57–73; PULSE 78–97; RESP 18–20; TEMP 36–37.4; O2SAT 95–99; BMI 31.1
[2023-12-09] MEDS: Lactated Ringers 1,000 ML 100 ML IV (00:36)
[2023-12-09] MEDS: Morphine 4 MG/ML Syringe IV ×4 (00:42→23:47)
--- NOTE | 2023-12-09 01:10 | OP.PCM_ITS ---
Problems Associated Problem List Diagnoses (1) Open fracture of distal end of fibula and tibia: (2) Fall from ladder: (3) Pain in right lower leg: (4) Hypothyroidism: Report of Operation Date of Procedure: 12/08/23 Pre-Operative Diagnosis: 1. Open tibiofibular fracture right lower extremity 2. Contaminated traumatic ulceration right lower extremity 3. Obtain right lower extremity Post-Operative Diagnosis: 1. Open tibiofibular fracture right lower extremity 2. Contaminated traumatic ulceration right lower extremity 3. Obtain right lower extremity Surgery/Procedure Performed:: 1. ORIF tibial/fibular/pilon open fracture right lower extremity 2. Incision and drainage right lower extremity 3. Debridement of wound to bone right lower extremity 4. Application of AO splint right lower extremity Description of Surgical Findings:: Open fracture with exposure of the tibia at the medial aspect of the leg. See operative note for remaining findings Surgeon: Will Bejarano fuel assembler: Trena Nagel DPM PGY-2 Type of Anesthesia: General and Local (Popliteal block by anesthesia team) Anesthesiologist: Kurt Gutiérrez Specimen's removed: None Drains: None Estimated Blood Loss (mL): < 10mL Description of Procedure: HPI/indication: Patient is a 48-year-old female who earlier this evening set up a ladder on unstable soft ground to clean gutters and subsequently ladder sunk into the ground causing her to fall roughly 6 feet to the ground. She had immediate pain and noticed the bone sticking out of her leg. She was taken to [facility] and podiatry was contacted for emergent surgical intervention of her right lower extremity open tibial fibular/pilon fracture. Discussed with patient that this is an emergent surgical procedure and requires washout and primary fixation to reduce risk of infection and tissue necrosis. Patient is in agreement with this and understands intervention needs to take place today. I discussed with patient procedure in great detail. Discussed all risks of the procedure and complications. Discussed risks include but are not limited to the following: Pain, continued pain, complex regional pain syndrome, infection, neuritis/numbness, dehiscence, delayed healing/nonhealing, malunion, nonunion, need for further surgical intervention/procedures, scarring, poor cosmetic result, inability to wear shoe gear, difficulty with ambulation, inability to walk, posttraumatic arthritis, addiction to pain medication, bleeding, blood clot, stroke, heart attack, allergic reaction, loss of function, loss of limb, loss of life. Patient understands these risks and were able to repeat these back. Consent was obtained and signed by the patient freely. Operating limb was signed prior to entering the OR. She was taken to the OR for immediate surgical intervention at [facility] on 12/08/2023. Procedure: Under mild sedation patient was brought into the operating room. Following induction of general anesthetic a popliteal block was performed by the anesthesia team. Patient was then transferred to the table in the supine position. Patient was secured to table with safety belt. [place] bump was placed under the right hip. Right foot/leg was elevated via a blanket bump. At this time pneumatic thigh tourniquet was placed about the right thigh. Next, the leg was scrubbed, prepped, and draped in the usual aseptic manner. Fluoroscopy was utilized then to visualize fracture in multiple views and landmarks were made for incision placement. At this time attention was directed to the right lower extremity where open tibial fracture underwent copious irrigation via pulse lavage. 9 L of fluid was utilized to irrigate open fracture site. Following irrigation debridement of bone was performed via curettage. Next, under live fluoroscopic imaging fracture underwent closed reduction via manual manipulation. Following closed reduction Esmarch bandage was utilized to exsanguinate the right lower extremity and the pneumatic thigh tourniquet was elevated to 300 mmHg. Attention was directed to the lateral aspect of the ankle where previous fracture identification of the fibula was made and previously marked. A linear incision was made overlying the fracture site of the fibula utilizing #15 blade. Incision was deepened via sharp and blunt dissection. Care was taken to identify all vital neurovascular structures and the peroneal tendons. The structures were identified and retracted protected throughout the duration of this case. Fibular fracture was identified and fracture site was curettaged and flushed with copious amounts of normal sterile saline. Fracture was temporarily fixated via reduction clamp and a 7 hole Arthrex one third tubular plate was ap plied to the lateral aspect of the fibula. Following AO principles a 3.5 x 12 mm cortical screw was inserted at the second hole down from the most proximal hole of this plate. Next following AO principle a 3.5 x 12 mm cortical screw was inserted in the second hole from the most distal portion of the plate. Remaining 2 proximal holes above the fracture site were filled with two 3.5 mm x 12 mm locking screws and the remaining 2 distal holes were filled with two 3.5 mm x 12 mm locking screws following AO principles. All reduction clamps were removed and fracture noted to be reduced in anatomic alignment. At this time attention was directed to the anterior aspect of the right lower extremity overlying the distal tibia where a linear incision was made utilizing a #15 blade. Incision was deepened via sharp and blunt dissection and care was taken to identify all vital neurovascular structures. Anterior tibial tendon was identified along with the dorsalis pedis artery and these were retracted laterally and protected throughout the duration of this case. Incision was deepened to the level of the periosteum where fracture fragments were identified of the distal tibia noted to involve 4 pieces with comminution. Fracture sites were debrided via curettage. Fracture fragments underwent reduction via reduction clamps and an 8 hole Arthrex anterolateral distal tibial plate was applied and temporarily fixated the olive wire. Reduction and placement of plate were confirmed in multiple fluoroscopic views. Next, following AO principles the oblong hole on the plate was filled with a 3.5 x 28 mm cortical screw. Next, following AO principle the third hole down from the most proximal hole was filled with 3.5 x 30 mm cortical screw. At this time attention was directed to the distal aspect of the plate where two 2.7 mm cortical screws were placed measuring 36 mm and 38 mm. Remaining distal holes were filled with four 2.7 mm x 36 mm locking screws following AO principles. The remaining proximal holes were filled with two 3.5 mm x 26 mm locking screws and three 3.5 x 20 mm locking screws following AO principle. Fracture was then again visualized in multiple fluoroscopic views confirming anatomic alignment. Incision sites were then flushed with copious amounts of normal sterile saline. At this time the pneumatic thigh tourniquet was deflated for a brief breathing period. Following breathing period tourniquet was reinflated to 300mmHg. Next, there was a small defect at the anterior lateral aspect of the distal tibia which was filled with 2.5 cc of Allosync bone graft. Next, 1 g of vancomycin powder was placed throughout the incision sites. At this time the lateral incision deep tissues were closed with 2-0 Vicryl. Subcutaneous tissue closed with 4-0 Monocryl. S kin was reapproximated with 3-0 Prolene in simple interrupted fashion. The anterior tibial incision deep tissues were closed with 2-0 Vicryl. Subcutaneous tissues closed with 4-0 Monocryl. Skin reapproximated with 3-0 Prolene in simple interrupted fashion. Next, attention was directed to the medial aspect of the lower extremity where the soft tissue defect underwent deep tissue closure with a 2-0 Vicryl. Subcutaneous tissues closed with a 4-0 Monocryl. Skin was reapproximated with a 3-0 Prolene in simple interrupted fashion. At this time the pneumatic thigh tourniquet was deflated and a prompt hyperemic response was noted to the digits of the right lower extremity. Incision sites were then dressed with Betadine soaked Adaptic, 4 x 4 gauze, Kerlix x 2, Webril cast padding, 4 inch Odilon wrap, and 6 inch Odilon wrap rolled onto the foot. A well molded sugar-tong AO splint was applied to the right lower extremity and anchored with a 4 inch Odilon wrap and 6 inch Odilon wrap and a modified Gusman compression fashion. Patient tolerated the procedure and anesthesia well was transported to PACU vital signs stable vascular status intact to the right lower extremity. Immediate postoperative imaging was obtained in PACU and reviewed prior to leaving. Patient was returned to floor once anesthesia protocol had been met. She will continue to receive IV antibiotics for the next 72 hours while in house per Gustilo and Jan classification. She is to remain nonweightbearing to the right lower extremity and to elevate right lower extremity at all times of rest for postoperative edema control. She may apply ice behind the right knee for assistance of pain control. Compression dressing to stay intact tomorrow and podiatry will change dressing on 12/10/2023. Grafts/Implants Used: Arthrex Tubular plate; Anterolateral Distal Tibial Plate; Screws x 19 Complications None Admit VTE Documentation VTE Present on Admission: No VTE Mechan Device Prophylaxis: SCD's VTE Pharm Prophylaxis ordered?: Yes
[2023-12-09] MEDS: 0.9% Saline Lock 10 ML Syringe IV ×2 (01:44→17:17)
--- NOTE | 2023-12-09 02:19 | PCM.PROGNOTE ---
Subjective Subjective Patient seen immediately following emergent surgical intervention for open tibial/fibular/pilon fracture of the right lower extremity. Patient did undergo anesthesia popliteal block. Denied pain immediately following surgical procedure when awake in PACU. Objective Data Objective Data Vital Signs: Vital Signs Temp Pulse Resp BP Pulse Ox O2 Del Method 96.8 F L 78 18 118/71 97 Room Air 12/09/23 00:00 12/09/23 00:00 12/09/23 00:00 12/09/23 00:00 12/09/23 00:00 12/09/23 00:00 Oxygen Delivery Method Room Air Weight: 90.265 kg Body Mass Index (BMI) 31.1 Intake & Output: Intake and Output for Last 24 Hours 12/07/23 12/08/23 12/09/23 23:59 23:59 23:59 Intake Total 100 / 100 Balance 100 / 100 Lab / Micro Data 12/08/23 12:50 12/08/23 12:50 Labs: Laboratory Results - last 24 hr 12/08/23 12:50: WBC 5.5, RBC 4.06 L, Hgb 11.7 L, Hct 36.8 L, MCV 90.6, MCH 28.8, MCHC 31.8 L, RDW Std Deviation 45.8 H, RDW Coeff of Roney 13.7, Plt Count 268, MPV 10.5, Immature Gran % (Auto) 0.400, Neut % (Auto) 51.3, Lymph % (Auto) 38.9, [place] % (Auto) 8.3, Eos % (Auto) 0.7, Baso % (Auto) 0.4, Absolute Neuts (auto) 2.8, Absolute Lymphs (auto) 2.15, Nucleated RBC % 0, Sodium 141, Potassium 3.7, Chloride 110 H, Carbon Dioxide 26.0, Anion Gap 5, BUN 13, Creatinine 0.95, Estim Creat Clear Calc 88.06, Est GFR (MDRD) Af Amer 81, Est GFR (MDRD) Non-Af 67, BUN/Creatinine Ratio 13.7, Glucose 106, Calcium 8.3 L Radiography Diagnostic Testing: Radiology Impression Ankle X-Ray 12/08/23 12:38 IMPRESSION: There are fractures of the distal tibia and distal fibula with diffuse soft tissue swelling. Electronically Signed: Kevon Hills MD at 13:30 EDT , Ankle X-Ray 12/08/23 19:10 IMPRESSION: undefined Ankle X-Ray 12/08/23 23:00 IMPRESSION: Acute fractures of the distal tibia and fibula are again noted, transfixed by surgical fixation plates and screws. The lateral postoperative view shows intra-articular extension of the distal tibial fracture line with step off along the articular surface of the tibial plafond. Electronically Signed: Darci Field MD at 0:14 EDT , Physical Exam Const alert, oriented x3 and no apparent distress General Appearance: cooperative HEENT normocephalic Eyes General Eye: normal appearance of both eyes Neck General: normal visual inspection Lymph Lymphatic: no lymphadenopathy noted and no lymphedema noted Resp normal respiratory effort Cardio regular rate and regular rhythm GI soft to palpation and non-tender Extremity Extremity Narrative: Right lower extremity: Vascular: DP and PT pulses palpable. Capillary fill time brisk to digits of the foot. Normal temperature gradient proximal to distal. There is hair growth to the digits noted. Neurological: Epicritic sensation intact. No focal deficits noted. Does have range of motion of digits and ankle however ankle joint range of motion is limited secondary to fracture. Dermatological: There is soft tissue edema of the lower extremity and ecchymosis secondary to previous open fracture. She did undergo ORIF 12/08/2023 with washout and debridement of tissues and bone. Sutures intact lateral ankle, anterior ankle, and medial ankle. A well molded AO splint applied to the right lower extremity. Musculoskeletal: Range of motion limited in all motions of the right ankle joint secondary to pain and fracture of the right lower extremity. Neuro oriented x3 Assessment & Plan Assessment/Plan (1) Open fracture of distal end of fibula and tibia: (2) Fall from ladder: (3) Pain in right lower leg: (4) Hypothyroidism: PLAN: Plan Patient seen and evaluated following surgical procedure She is s/p ORIF tibial/fibular/pilon open fracture right lower extremity, I&D right lower extremity, debridement of bone, and application of AO splint. DOS 12/08/2023. Sutures are intact at the lateral ankle, medial ankle, and anterior ankle. During surgical intervention she did undergo copious irrigation with 9 L normal sterile saline pulse lavage prior to the fracture reduction. Prior to closure she did have 1 g of vancomycin powder placed throughout the incision sites. Well molded and well-padded AO splint applied to the right lower extremity post fixation. Dressings to remain intact and podiatry will change on 12/10/2023. Patient may take morphine 4 mg every 4?6 hours as needed pain, Tylenol 650 mg every 4-6 hours as needed for pain. She is to remain nonweightbearing to the right lower extremity with the assistance of a walker. She is to continue to keep right lower extremity elevated at all times rest for postoperative edema control. May apply ice behind right knee for additional pain control. Patient did receive popliteal block by anesthesia team prior to intervention. Patient may resume regular diet. Following procedure patient was returned to floor for continued IV antibiotics and pain management. Patient currently on clindamycin 600 mg every 8 hours, patient noted to have allergies to doxycycline, penicillin, and amoxicillin. Recommended continuing IV antibiotic for 72 hours. Wound nurse to be consulted for assistance in dressing changes. I will continue to follow while in house. Jr. Maame Mccormack.P.M. [facility] [place] [phone]
[2023-12-09] MEDS: Clindamycin 900 MG/50 ML BAG 75 MG IV ×3 (04:50→21:29)
[2023-12-09] MEDS: Levothyroxine 100 MCG Tablet 200 MCG PO (04:53)
[2023-12-09] MEDS: Aspirin 325 MG Tablet PO (08:51)
[2023-12-09] MEDS: oxyCODONE 5 MG Tablet PO ×2 (15:46→20:48)
[2023-12-09] MEDS: Juven (unflavored) Packet 1 PACKET PO (17:12)
[2023-12-09] MEDS: cycloBENZAPRine HCl 10 MG Tablet PO ×2 (18:38→21:31)
[2023-12-09] MEDS: Acetaminophen 325 MG Tablet 650 MG PO (20:47)
[2023-12-10] MEDS: oxyCODONE 5 MG Tablet PO ×5 (01:47→23:52)
[2023-12-10] MEDS: Acetaminophen 325 MG Tablet 650 MG PO ×5 (01:47→23:52)
[2023-12-10 05:28] VITALS: BP 112/70; PULSE 83; RESP 18; TEMP 36.8; O2SAT 97
[2023-12-10] MEDS: cycloBENZAPRine HCl 10 MG Tablet PO ×2 (05:31→15:26)
[2023-12-10] MEDS: Levothyroxine 100 MCG Tablet 200 MCG PO (05:32)
[2023-12-10] MEDS: Clindamycin 900 MG/50 ML BAG 75 MG IV ×3 (05:54→22:08)
[2023-12-10 07:30] VITALS: BP 114/76; PULSE 89; RESP 18; TEMP 36.8; O2SAT 97
--- NOTE | 2023-12-10 08:10 | PCM.PROGNOTE ---
Subjective Subjective Patient seen this a.m. resting in bed with right foot elevated. Patient states that she does have occasional muscle spasms in the lower extremity with some burning pain. She has remained nonweightbearing to the right lower extremity. Patient is voiding without difficulty. Denies constitutional symptoms. Denies further complaints. I did return again this evening to re-evaluate for pain. She is resting bedside in chair with legs elevated and friends visiting. She has started working with physical therapy on remaining nonweightbearing to the right lower extremity with assistance of a knee scooter. Objective Data Objective Data Vital Signs: Vital Signs Temp Pulse Resp BP Pulse Ox O2 Del Method 98.2 F 83 18 112/70 97 Room Air 12/10/23 05:28 12/10/23 05:28 12/10/23 05:28 12/10/23 05:28 12/10/23 05:28 12/10/23 05:28 Oxygen Delivery Method Room Air Weight: 90.265 kg Body Mass Index (BMI) 31.1 Intake & Output: Intake and Output for Last 24 Hours 12/08/23 12/09/23 12/10/23 23:59 23:59 23:59 Intake Total 100 / 100 1033.33 / 1033.33 50 / 50 Output Total 1000 / 1000 Balance 100 / 100 33.33 / 33.33 50 / 50 Lab / Micro Data 12/08/23 12:50 12/08/23 12:50 Physical Exam Const alert, oriented x3 and no apparent distress General Appearance: cooperative HEENT normocephalic Eyes General Eye: normal appearance of both eyes Neck General: normal visual inspection Lymph Lymphatic: no lymphadenopathy noted and no lymphedema noted Resp normal respiratory effort Cardio regular rate and regular rhythm GI soft to palpation and non-tender Extremity Extremity Narrative: Right lower extremity: Vascular: DP and PT pulses palpable. Capillary fill time brisk to digits of the foot. Normal temperature gradient proximal to distal. There is hair growth to the digits noted. Neurological: Epicritic sensation intact. No focal deficits noted. Does have range of motion of digits and ankle however ankle joint range of motion is limited secondary to fracture. Dermatological: There is soft tissue edema of the lower extremity and ecchymosis secondary to previous open fracture. She did undergo ORIF 12/08/2023 with washout and debridement of tissues and bone. Sutures intact lateral ankle, anterior ankle, and medial ankle. There is evidence of hemorrhagic fracture blister medial calcaneal wall below the site of open fracture wound. A well molded AO splint applied to the right lower extremity. Musculoskeletal: Range of motion limited in all motions of the right ankle joint secondary to pain and fracture of the right lower extremity. Neuro oriented x3 Assessment & Plan Assessment/Plan (1) Open fracture of distal end of fibula and tibia: (2) Fall from ladder: (3) Pain in right lower leg: (4) Hypothyroidism: PLAN: Plan Patient seen and evaluated following surgical procedure She is s/p ORIF tibial/fibular/pilon open fracture right lower extremity, I&D right lower extremity, debridement of bone, and application of AO splint. DOS 12/08/2023. POD #2 Denies calf pain. Does state occasional pain in the right lower extremity but pain medication is helping. Sutures are intact at the lateral ankle, medial ankle, and anterior ankle. There is new hemorrhagic fracture blister medial calcaneal wall well below the site of the open fracture wound at the medial leg. No signs of infection. During surgical intervention she did undergo copious irrigation with 9 L normal sterile saline pulse lavage prior to the fracture reduction. Prior to closure she did have 1 g of vancomycin powder placed throughout the incision sites. Dressings changed today consisting of Betadine soaked Adaptic, 4 x 4 gauze, Kerlix, specialist cast padding, 4 inch Odilon, 6 inch Odilon. Well molded and well-padded AO splint applied to the right lower extremity and anchored with a 4 inch Odilon and 6 inch Odilon wrap and modified Gusman compression fashion. I will return to change dressing 12/12/2023. Patient may take oxycodone acetaminophen 5/325 mg every 4?6 hours as needed pain, Flexeril 10 mg every 8 hours as needed pain/spasm, Tylenol 650 mg every 4-6 hours as needed for pain. Patient on ASA 325 mg daily She is to remain nonweightbearing to the right lower extremity with the assistance of a walker/knee scooter. She is to continue to keep right lower extremity elevated at all times rest for postoperative edema control. May apply ice behind right knee for additional pain control. Patient may resume regular diet. Patient currently on clindamycin 600 mg every 8 hours, patient noted to have allergies to doxycycline, penicillin, and amoxicillin. Recommended continuing IV antibiotic for 72 hours. Wound nurse consulted for assistance in dressing changes. Anticipating stay until likely Sunday secondary to pain management. Upon discharge will continue oral pain medication and daily aspirin. I will continue to follow while in house. Jr. Lars MccormackP.Leonor. [facility] [phone]
[2023-12-10] MEDS: 0.9% Saline Lock 10 ML Syringe IV (08:12)
[2023-12-10] MEDS: Morphine 4 MG/ML Syringe IV ×2 (08:12→15:26)
[2023-12-10] MEDS: Juven (unflavored) Packet 1 PACKET PO ×2 (08:15→18:59)
[2023-12-10] MEDS: Aspirin 325 MG Tablet PO (08:15)
[2023-12-10] MEDS: diazePAM 2 MG Tablet PO ×2 (12:01→22:14)
--- NOTE | 2023-12-10 12:03 | CASEMGMT ---
MEDINA LARA Assessment Face to Face with patient for initial transition planning/care coordination assessment. MEDINA LARA introduced self and role at [facility], pt voices understanding. Pt is A&Ox4 and is resting comfortably in bed and is calm. Care providers, pharmacy, and demographics verified. Admitting dx: Open Tibial/Fibular Fx RLE PCP: Salome Specialists: Aleshia ([facility]) Preferred Pharmacy: [facility] Insurance: ANTHEM Prescription Benefit: Yes LNOK: Eli English (Mother) Living Arrangements: Pt lives alone in a single story home with a BM with HR and 2 steps to enter w/o HR. ADLs/IADLs: Pt states that she is normally ind at home. Transportation: Pt normally drives. Pt is unable to drive in current condition. Pt states that she has resoruces that can drive her including: brother, friend, and BANDAR. DME: Pt denies having any DME at home currently. Pt states that she would like a knee scooter at DC. Pt states that her friend has one of these and will use that after DC. HHC/SNF: Denies histroy or needs. Pt?s goal: Home Plan: Pt had surgery on Sunday (12/07). Pt states that she has been able to walk short distances on her own. Pt states that she was told by the MD that DC is tentatively Sunday. Pt states that if she DC's home that she will have neighbors and friends that will be able to help her needs. Pt also reports that she might go to her friends house after DC. Pt states that her friend has a FFSU and everything she needs. Pt states that either way I have people and places I can go to feel safe after DC. Pt reports that Dr. Bejarano may advise the pt to attend OP therapy eventually and once able to. Pt is unsure if she needs a Rx for this or not. Pt educated that CM can provide script and also set up appt if needed. Pt states understanding and states that she will wait for Dr. Bejarano's input regarding the matter. MARCO Castro on [facility] updated with pt POC. CM to follow for safe DC home. Luis Blake RN, CM
[2023-12-10 15:43] VITALS: BP 115/74; PULSE 96; RESP 18; TEMP 36.6; O2SAT 98
[2023-12-10 22:05] VITALS: BP 126/73; PULSE 96; RESP 18; TEMP 36.7; O2SAT 99
[2023-12-10] MEDS: Docusate Sodium 100 MG Capsule 200 MG PO (22:14)
[2023-12-11 05:29] VITALS: BP 119/78; PULSE 89; RESP 18; TEMP 36.3; O2SAT 95
[2023-12-11] MEDS: Levothyroxine 100 MCG Tablet 200 MCG PO (05:31)
[2023-12-11] MEDS: Clindamycin 900 MG/50 ML BAG 75 MG IV ×3 (05:32→20:18)
--- NOTE | 2023-12-11 08:47 | WOUNDNOTE ---
Dressing to the right lower leg is to remain in place. plan for dressing change tomorrow with Dr Bejarano per progress note.
[2023-12-11 09:40] VITALS: BP 115/79; PULSE 82; RESP 16; TEMP 36.6; O2SAT 94
[2023-12-11] MEDS: Acetaminophen 325 MG Tablet 650 MG PO ×2 (09:40→18:35)
[2023-12-11] MEDS: cycloBENZAPRine HCl 10 MG Tablet PO ×2 (09:41→18:35)
[2023-12-11] MEDS: Docusate Sodium 100 MG Capsule 200 MG PO ×2 (09:42→20:18)
[2023-12-11] MEDS: oxyCODONE 5 MG Tablet PO ×2 (09:42→18:37)
[2023-12-11] MEDS: Aspirin 325 MG Tablet PO (09:46)
[2023-12-11] MEDS: 0.9% Saline Lock 10 ML Syringe IV (12:15)
[2023-12-11] MEDS: 0.9% Normal Saline (250mL Bag) 250 ML 15 ML IV (12:18)
[2023-12-11 16:11] VITALS: BP 120/80; PULSE 92; RESP 18; TEMP 36.8; O2SAT 98
[2023-12-11] MEDS: Juven (unflavored) Packet 1 PACKET PO (16:56)
[2023-12-11 20:15] VITALS: BP 117/76; PULSE 108; RESP 18; TEMP 36.7; O2SAT 98
[2023-12-12 03:41] VITALS: BP 123/84; PULSE 91; RESP 18; TEMP 36.8; O2SAT 100
[2023-12-12] MEDS: Acetaminophen 325 MG Tablet 650 MG PO (03:44)
[2023-12-12] MEDS: oxyCODONE 5 MG Tablet PO (03:44)
[2023-12-12] MEDS: cycloBENZAPRine HCl 10 MG Tablet PO (03:44)
[2023-12-12] MEDS: Levothyroxine 100 MCG Tablet 200 MCG PO (03:45)
[2023-12-12] MEDS: Clindamycin 900 MG/50 ML BAG 75 MG IV (03:46)
[2023-12-12] MEDS: Mupirocin Ointment 22gm Tube 1 APPLIC TOPICAL (07:30)
--- NOTE | 2023-12-12 08:04 | PCM.PROGNOTE ---
Subjective Subjective Patient seen early this a.m. resting in bed with right foot elevated. States she is continuing to improve with pain well-controlled with oral medication. States she is transferring well with the assistance of a walker and does plan to use knee scooter once she goes home. Denies constitutional symptoms. Denies further complaints. Objective Data Objective Data Vital Signs: Vital Signs Temp Pulse Resp BP Pulse Ox O2 Del Method 98.2 F 91 18 123/84 H 100 Room Air 12/12/23 03:41 12/12/23 03:41 12/12/23 03:41 12/12/23 03:41 12/12/23 03:41 12/12/23 03:41 Oxygen Delivery Method Room Air Weight: 90.265 kg Body Mass Index (BMI) 31.1 Intake & Output: Intake and Output for Last 24 Hours 12/10/23 12/11/23 12/12/23 23:59 23:59 23:59 Intake Total 0 / 0 819.5 / 819.5 50 / 50 Output Total 1100 / 1100 1100 / 1100 Balance 950 / 950 -280.5 / -280.5 50 / 50 Lab / Micro Data 12/08/23 12:50 12/08/23 12:50 Physical Exam Const alert, oriented x3 and no apparent distress General Appearance: cooperative HEENT normocephalic Eyes General Eye: normal appearance of both eyes Neck General: normal visual inspection Lymph Lymphatic: no lymphadenopathy noted and no lymphedema noted Resp normal respiratory effort Cardio regular rate and regular rhythm GI soft to palpation and non-tender Extremity Extremity Narrative: Right lower extremity: Vascular: DP and PT pulses palpable. Capillary fill time brisk to digits of the foot. Normal temperature gradient proximal to distal. There is hair growth to the digits noted. Neurological: Epicritic sensation intact. No focal deficits noted. Does have range of motion of digits and ankle however ankle joint range of motion is limited secondary to fracture. Dermatological: There is soft tissue edema of the lower extremity and ecchymosis secondary to previous open fracture. She did undergo ORIF 12/08/2023 with washout and debridement of tissues and bone. Sutures intact lateral ankle, anterior ankle, and medial ankle. There hemorrhagic fracture blister medial calcaneal wall below the site of open fracture wound and additional fracture blister posterior to open wound. These were previously drained and de-roofed. A well molded AO splint applied to the right lower extremity. Musculoskeletal: Range of motion limited in all motions of the right ankle joint secondary to pain and fracture of the right lower extremity. Neuro oriented x3 Assessment & Plan Assessment/Plan (1) Open fracture of distal end of fibula and tibia: (2) Fall from ladder: (3) Pain in right lower leg: (4) Hypothyroidism: PLAN: Plan Patient seen and evaluated following surgical procedure She is s/p ORIF tibial/fibular/pilon open fracture right lower extremity, I&D right lower extremity, debridement of bone, and application of AO splint. DOS 12/08/2023. POD #4 Denies calf pain. Does state occasional pain and spasms in the right lower extremity but pain medication is helping. Sutures are intact at the lateral ankle, medial ankle, and anterior ankle. Hemorrhagic fracture blister medial calcaneal wall well below the site of the open fracture wound at the medial leg and posterior to open fracture wound were lanced and de-roofed. No signs of infection. During surgical intervention she did undergo copious irrigation with 9 L normal sterile saline pulse lavage prior to the fracture reduction. Prior to closure she did have 1 g of vancomycin powder placed throughout the incision sites. Dressings changed today consisting of antibiotic ointment to fracture blister sites and dressed with Adaptic, Betadine soaked Adaptic to incision sites, 4 x 4 gauze, Kerlix, specialist cast padding, 4 inch Odilon, 6 inch Odilon. Well molded and well-padded AO splint applied to the right lower extremity and anchored with a 4 inch Odilon and 6 inch Odilon wrap and modified Gusman compression fashion. Patient may take oxycodone acetaminophen 5/325 mg every 4?6 hours as needed pain, Flexeril 10 mg every 8 hours as needed pain/spasm, Tylenol 650 mg every 4-6 hours as needed for pain. Patient on ASA 325 mg daily She is to remain nonweightbearing to the right lower extremity with the assistance of a walker/knee scooter. She is to continue to keep right lower extremity elevated at all times rest for postoperative edema control. May apply ice behind right knee for additional pain control. Patient may continue regular diet. Patient currently on clindamycin 900 mg every 8 hours, patient noted to have allergies to doxycycline, penicillin, and amoxicillin. She has completed 72 hours of IV antibiotics and clindamycin has been discontinued. Wound nurse consulted for assistance in dressing changes. Anticipating stay until likely Sunday secondary to pain management. Upon discharge will continue oral pain medication and daily aspirin. Will remain nonweightbearing to right lower extremity with assistance of walker/knee scooter. I will continue to follow while in house. She will also continue to follow in office upon discharge. Jr. Maame Mccormack.P.M. [facility] [phone]
[2023-12-12] MEDS: Aspirin 325 MG Tablet PO (08:12)
[2023-12-12] MEDS: Juven (unflavored) Packet 1 PACKET PO (08:12)
[2023-12-12] MEDS: Docusate Sodium 100 MG Capsule 200 MG PO (08:12)
[2023-12-12 08:15] VITALS: BP 125/82; PULSE 85; RESP 14; TEMP 36.6; O2SAT 95
--- NOTE | 2023-12-12 12:33 | PCM.DC ---
Discharge Instructions Diet Discharge Diet: No restrictions Activity Discharge Activity: May Not Drive, May Shower (Please utilize cast bag covering when showering to keep dressings clean, dry, and intact to right lower extremity) and Use Walker (To remain nonweightbearing to the right lower extremity with assistance of walker/knee scooter) Weight Bearing Status: No weight bearing (Please remain nonweightbearing to the right lower extremity with the assistance of walker/knee scooter) Keep extremity elevated above heart level: Right Leg (Elevate right lower extremity at all times of rest for postoperative edema control) Dressing / Incision Call your doctor if you observe: Fever of 101 or Higher, Chest pain, Calf discomfort and Uncontrolled pain Change Dressing in: do not change dressing Remove Dressing in: leave in place till F/U (Leave dressing intact. Physician will change dressing at next postoperative appointment in office) Cleanse incision/area with: Do not get Incision Wet and Keep Dressing Clean & Dry (Do not get dressings wet. Keep dressings clean, dry, and intact to the right lower extremity with the assistance of cast bag when showering. May shower seated on shower chair.) Follow Up Care Please Follow Up With: Will Bejarano DPM When: Will call office to get office appointment for next week. Test Results: Test results from this visit will be discussed in further detail at your follow-up appointment, if applicable. Discharge Plan Admission Admit Date/Time: 12/08/23 13:07 Attending Provider: Will Bejarano Primary Care Provider: Meliton Mcmahon Discharge Orders/Prescriptions Prescriptions: New ondansetron 4 mg tablet,disintegrating 4 mg PO Q8H Qty: 20 0RF aspirin 325 mg tablet,delayed release (DR/EC) 325 mg PO DAILY Qty: 20 0RF oxycodone-acetaminophen 5-325 mg tablet 1 tab PO Q8H PRN (Reason: pain) 7 Days Qty: 28 0RF cyclobenzaprine 10 mg tablet 10 mg PO TID Qty: 20 0RF No Action levothyroxine 200 mcg tablet 200 mcg PO DAILY Referrals / Follow Up: Meliton Mcmahon DO [Primary Care Provider] - Disposition Disposition (needs filled in before D/C Order can be placed): Home, Self Care
--- NOTE | 2023-12-12 12:42 | PCM.DC.SUM ---
Providers Date of Admission: 12/08/23 Date of Discharge: 12/12/23 Primary Care Physician: Dr. Meliton Mcmahon, DO Consultations 12/09/23 04:10 Consult: Onc/Wound/tin recovery worker Routine Comment: Reason For Visit: OPEN TIBIAL/FIBULAR FRACTURE RIGHT LOWER EXTREMITY Diagnosis Discharge Diagnosis (1) Open fracture of distal end of fibula and tibia: Status: Acute Code(s): S82.309B - Unspecified fracture of lower end of unspecified tibia, initial encounter for open fracture type I or II; S82.839B - Other fracture of upper and lower end of unspecified fibula, initial encounter for open fracture type I or II (2) Fall from ladder: Status: Acute Code(s): W11.XXXA - Fall on and from ladder, initial encounter (3) Pain in right lower leg: Status: Acute Code(s): M79.661 - Pain in right lower leg (4) Hypothyroidism: Status: Acute Code(s): E03.9 - Hypothyroidism, unspecified Plan Patient seen and evaluated following surgical procedure She is s/p ORIF tibial/fibular/pilon open fracture right lower extremity, I&D right lower extremity, debridement of bone, and application of AO splint. DOS 12/08/2023. POD #4 Denies calf pain. Does state occasional pain and spasms in the right lower extremity but pain medication is helping. Sutures are intact at the lateral ankle, medial ankle, and anterior ankle. Hemorrhagic fracture blister medial calcaneal wall well below the site of the open fracture wound at the medial leg and posterior to open fracture wound were lanced and de-roofed. No signs of infection. During surgical intervention she did undergo copious irrigation with 9 L normal sterile saline pulse lavage prior to the fracture reduction. Prior to closure she did have 1 g of vancomycin powder placed throughout the incision sites. Dressings changed today consisting of antibiotic ointment to fracture blister sites and dressed with Adaptic, Betadine soaked Adaptic to incision sites, 4 x 4 gauze, Kerlix, specialist cast padding, 4 inch Odilon, 6 inch Odilon. Well molded and well-padded AO splint applied to the right lower extremity and anchored with a 4 inch Odilon and 6 inch Odilon wrap and modified Gusman compression fashion. Patient may take oxycodone acetaminophen 5/325 mg every 4?6 hours as needed pain, Flexeril 10 mg every 8 hours as needed pain/spasm, Tylenol 650 mg every 4-6 hours as needed for pain. Patient on ASA 325 mg daily She is to remain nonweightbearing to the right lower extremity with the assistance of a walker/knee scooter. She is to continue to keep right lower extremity elevated at all times rest for postoperative edema control. May apply ice behind right knee for additional pain control. Patient may continue regular diet. Patient currently on clindamycin 900 mg every 8 hours, patient noted to have allergies to doxycycline, penicillin, and amoxicillin. She has completed 72 hours of IV antibiotics and clindamycin has been discontinued. Wound nurse consulted for assistance in dressing changes. Anticipating stay until likely Sunday secondary to pain management. Upon discharge will continue oral pain medication and daily aspirin. Will remain nonweightbearing to right lower extremity with assistance of walker/knee scooter. I will continue to follow while in house. She will also continue to follow in office upon discharge. Will Bejarano Jr. D.P.M. [facility] [phone] Medications at Discharge Home Medications levothyroxine 200 mcg tablet 200 mcg PO DAILY 12/08/23 aspirin 325 mg tablet,delayed release 325 mg PO DAILY #20 tabs 12/12/23 cyclobenzaprine 10 mg tablet 10 mg PO TID #20 tabs 12/12/23 ondansetron 4 mg disintegrating tablet 4 mg PO Q8H #20 tabs 12/12/23 oxycodone-acetaminophen 5 mg-325 mg tablet 1 tab PO Q8H PRN pain 7 days #28 tabs 12/12/23 Hospital Course Operations - (ORIF tibial/fibular/pilon open fracture right lower extremity 12/08/2023) Summary of Care Provided Hospital Course: Patient presented to [facility] on 12/08/2023 after suffering fall from ladder of 6 foot up to the ground resulting in open tibial/fibular/pilon fracture of the right lower extremity early in the afternoon. Patient was taken to the OR that evening for emergent washout consisting of 9 L normal sterile saline via pulse lavage and reduction of her open fracture. She then subsequently underwent primary ORIF of fracture fragments with internal hardware, plates and screws. Prior to closure 1 g vancomycin powder was placed throughout incision sites. Open fracture soft tissue laceration/defect was also repaired at time of closure. Patient was placed into a well-padded AO splint and was admitted to [facility] for continued IV antibiotic, clindamycin 900 mg for the next 72 hours. Patient required clindamycin for antibiotic coverage secondary to allergies to penicillin, doxycycline, amoxicillin. During stay patient did subsequently develop fracture blister below the site of her open fracture along the medial leg which was lanced, the de-roofed and dressed with antibiotic ointment and Adaptic. Incision sites remain well coapted with intact sutures lateral, anterior, and medial lower extremity with resolving ecchymosis. She did continue IV pain medication until Sunday morning and pain has been well-controlled with oral pain medication since this time. Patient has been eating well and is able to void without difficulty. She did work with physical therapy on her nonweightbearing status of the right lower extremity with the assistance of a knee scooter and a walker. She has done well with therapy and understands importance of the nonweightbearing status and continued elevation of the lower extremity for postoperative edema control. Discharge instructions were given to patient outlining postoperative care in addition to medications for pain management and anticoagulant therapy at discharge. She was discharged from [facility] 12/12/2023 in good spirits with vascular status intact to the right lower extremity. She was instructed to follow-up in office for continued postoperative care following discharge. Physical Exam Const alert, oriented x3 and no apparent distress General Appearance: cooperative HEENT normocephalic Eyes General Eye: normal appearance of both eyes Neck General: normal visual inspection Lymph Lymphatic: no lymphadenopathy noted and no lymphedema noted Resp normal respiratory effort Cardio regular rate and regular rhythm GI soft to palpation and non-tender Extremity Extremity Narrative: Right lower extremity: Vascular: DP and PT pulses palpable. Capillary fill time brisk to digits of the foot. Normal temperature gradient proximal to distal. There is hair growth to the digits noted. Neurological: Epicritic sensation intact. No focal deficits noted. Does have range of motion of digits and ankle however ankle joint range of motion is limited secondary to fracture. Dermatological: There is soft tissue edema of the lower extremity and ecchymosis secondary to previous open fracture. She did undergo ORIF 12/08/2023 with washout and debridement of tissues and bone. Sutures intact lateral ankle, anterior ankle, and medial ankle. There hemorrhagic fracture blister medial calcaneal wall below the site of open fracture wound and additional fracture blister posterior to open wound. These were previously drained and de-roofed. A well molded AO splint applied to the right lower extremity. Musculoskeletal: Range of motion limited in all motions of the right ankle joint secondary to pain and fracture of the right lower extremity. Neuro oriented x3 Weight / BMI Weight Weight: 90.265 kg Body Mass Index (BMI) 31.1 ABG / Lab / Microbiology Data 12/08/23 12:50 12/08/23 12:50 D/C Instructions Discharge Diet: No restrictions Weight Bearing Status: No weight bearing (Please remain nonweightbearing to the right lower extremity with the assistance of walker/knee scooter) Keep extremity elevated above heart level: Right Leg (Elevate right lower extremity at all times of rest for postoperative edema control) Call your doctor if you observe: Fever of 101 or Higher, Chest pain, Calf discomfort and Uncontrolled pain Cleanse incision/area with: Do not get Incision Wet and Keep Dressing Clean & Dry (Do not get dressings wet. Keep dressings clean, dry, and intact to the right lower extremity with the assistance of cast bag when showering. May shower seated on shower chair.) Please Follow Up With: Will Bejarano DPM When: Will call office to get office appointment for next week. Meaningful Use Info Meaningful Use Diagnoses (Choose all that apply): None applicable VTE Anticoag overlap given w/in hospital stay or rx'd at de?: Yes Pt receive overlap for 5 days?: Yes Discharge Plan Admission Admit Date/Time: 12/08/23 13:07 Attending Provider: Will Bejarano Primary Care Provider: Meliton Mcmahon Discharge Orders/Prescriptions Prescriptions: New ondansetron 4 mg tablet,disintegrating 4 mg PO Q8H Qty: 20 0RF aspirin 325 mg tablet,delayed release (DR/EC) 325 mg PO DAILY Qty: 20 0RF oxycodone-acetaminophen 5-325 mg tablet 1 tab PO Q8H PRN (Reason: pain) 7 Days Qty: 28 0RF cyclobenzaprine 10 mg tablet 10 mg PO TID Qty: 20 0RF No Action levothyroxine 200 mcg tablet 200 mcg PO DAILY Referrals / Follow Up: Meliton Mcmahon DO [Primary Care Provider] - Disposition Disposition (needs filled in before D/C Order can be placed): Home, Self Care
[2023-12-12 14:16] VITALS: BP 118/80; PULSE 89; RESP 14; TEMP 36.8; O2SAT 98
--- NOTE | 2023-12-12 14:17 | CASEMGMT ---
Addendum entered by Gloria Alvarenga 12/12/23 14:43: Referral sent to [facility] for FWW at this time. Original Note: RN CM into pt room, pt lying in bed in no distress. Pt states she is borrowing a knee scooter but is interested in obtaining a walker prior to dc'ing home. Provided pt with a verbal local in network list of DME companies, pt chose [employer]. Pt dtr will be coming tomorrow to stay with her. Pt sister in law will be coming to transport pt home. Pt denies any further homegoing needs at this time.
--- NOTE | 2023-12-12 14:55 | PHA.DC.MC.R ---
Pharmacy [facility] has performed discharge medication reconciliation and counseling for this patient. 1. ASPIRIN EC 325MG PO DAILY 2. CYCLOBENZAPRINE 10MG PO TID 3. ONDANSETRON ODT 4MG PO TID 4. OXYCODONE/ACETAMINOPHEN 5/325MG PO Q8 PRN PAIN The patient's discharge medication list was reviewed for discrepancies and discrepancies were resolved. The patient was counseled on the following discharge medications and changes in medications for homegoing were reviewed. The Reason for Use, instructions for use, and potential side effects were reviewed for all new medications. The patient's questions regarding all of their medications were answered. The patient was able to verbally demonstrate an understanding of their discharge medications. Medications at Discharge Home Medications levothyroxine 200 mcg tablet 200 mcg PO DAILY 12/08/23 aspirin 325 mg tablet,delayed release 325 mg PO DAILY #20 tabs 12/12/23 cyclobenzaprine 10 mg tablet 10 mg PO TID #20 tabs 12/12/23 ondansetron 4 mg disintegrating tablet 4 mg PO Q8H #20 tabs 12/12/23 oxycodone-acetaminophen 5 mg-325 mg tablet 1 tab PO Q8H PRN pain 7 days #28 tabs 12/12/23
--- NOTE | 2023-12-12 16:14 | NURSING ---
All documentation by student nurse Marion Romero reviewed by adjunct nursing faculty Ana Gordillo RN.
== END 2023-12-12 17:30 | disposition home or self-care (01) | DRG 492 ==
LOC: ED 15:44 → MS3 23:23 → ED 12-10 14:39 → SDC 12-10 14:39 → MS3 12-10 14:40
PROVIDERS: Admitting Provider Student in an Organized Health Care Education/Training Program; Emergency Provider Emergency Medicine; PCP Preventive Medicine Occupational Medicine; Visit Provider Student in an Organized Health Care Education/Training Program
PROC: 0QSG04Z Reposition Right Tibia with Internal Fixation Device, Open Approach (ICD-10-PCS; principal; 2023-12-08 14:00)
DX: S82.871B Displaced pilon fracture of right tibia, initial encounter for open fracture type I or II (principal); S82.831B Other fracture of upper and lower end of right fibula, initial encounter for open fracture type I or II; E03.9 Hypothyroidism, unspecified; W11.XXXA Fall on and from ladder, initial encounter; Z79.899 Other long term (current) drug therapy; Z23 Encounter for immunization
CPT/HCPCS: 73610; 76000; 80048; 85025; 90715; 97162; 97166; 97530; 97535; 97802; 99284; C1713; J7050; J7120; A4216; J2405

== ENCOUNTER 2024-01-11 11:08 | Day surgery (SDC) | payer BC, SELFPAY ==
[2024-01-11] VITALS (10 sets, daily range): BP systolic 105–144; BP diastolic 68–86; PULSE 87–98; RESP 16; TEMP 36.4–37.4; O2SAT 96–99; BMI 28.6
--- NOTE | 2024-01-11 12:38 | DCINST_ITS ---
Discharge Instructions Diet Discharge Diet: No restrictions Activity Discharge Activity: May Not Drive and May Shower (Please utilize cast bag covering to keep dressings clean, dry, and intact to the right lower extremity) Weight Bearing Status: No weight bearing (Please remain nonweightbearing to the right lower extremity with the assistance of crutches/knee scooter) Keep extremity elevated above heart level: Right Leg (Elevate right lower extremity at all times of rest for postoperative edema control) Dressing / Incision Call your doctor if you observe: Fever of 101 or Higher, Shortness of breath, Chest pain, Calf discomfort and Uncontrolled pain Change Dressing in: do not change dressing Remove Dressing in: leave in place till F/U (Physician will change dressing at first postoperative appointment. Do not adjust or remove pins on fixator device.) Cleanse incision/area with: Do not get Incision Wet and Keep Dressing Clean & Dry (Do not get dressings wet. Please keep clean, dry, and intact to the right lower extremity. Please utilize cast bag when showering) Follow Up Care Please Follow Up With: Will Bejarano DPM When: Patient has first postoperative appointment with me in office early next week Test Results: Test results from this visit will be discussed in further detail at your follow- up appointment, if applicable. Discharge Plan Admission Attending Provider: Will Bejarano Primary Care Provider: Meliton Mcmahon Discharge Orders/Prescriptions Prescriptions: New aspirin 325 mg tablet 325 mg PO DAILY Qty: 20 0RF clindamycin HCl 150 mg capsule 150 mg PO TID Qty: 30 0RF diazepam [Valium] 2 mg tablet 2 mg PO TID PRN (Reason: muscle spasm) Qty: 42 0RF oxycodone-acetaminophen 5-325 mg tablet 1 tab PO Q8H PRN (Reason: pain) 7 Days Qty: 28 0RF No Action aspirin 81 mg capsule 81 mg PO DAILY levothyroxine 200 mcg tablet 200 mcg PO DAILY Referrals / Follow Up: Meliton Mcmahon DO [Primary Care Provider] - Disposition Disposition (needs filled in before D/C Order can be placed): Home, Self Care
[2024-01-11] MEDS: Lactated Ringers 1,000 ML 15 ML IV (12:41)
[2024-01-11 12:55] LABS: Internal QC Validated? YES +Cl - CLEAR BKGD; Pregnancy, Serum, hCG Quali. NEGATIVE Negative
[2024-01-11] MEDS: Clindamycin 900 MG/50 ML BAG 75 MG IV (13:03)
[2024-01-11 13:08] LABS: AST(SGOT) 12 U/L (15-37); Alanine Aminotransfer ALT/SGPT 17 U/L (13-56); Albumin, Serum 3.6 g/dL (3.2-5.0); Alkaline Phosphatase 66 U/L (45-117); Anion Gap 2 (5-15); BUN 13 mg/dL (7-18); BUN/Creat Ratio 17.2 RATIO (10-20); Chloride 107 mmol/L (98-107); Creatinine, Serum 0.76 mg/dL (0.55-1.02); EST Glomerular Filtration Rate 87 mL/min (>60); Est Glom Filt Rate - Afr Amer 105 mL/min (>60); Estimated Creatinine Clearance 101.36 ml/min; Globulin 3.6 g/dL (2.2-4.2); Glucose 96 mg/dL (74-106); Potassium 3.9 mmol/L (3.5-5.1); Protein, Total 7.2 g/dL (6.4-8.2); Sodium Level 137 mmol/L (136-145); Thyroid Stim Hormone (TSH) 0.29 uIU/mL (0.358-3.74)
--- NOTE | 2024-01-11 13:10 | RAD_ITS ---
STUDY: X-RAY - RIGHT ANKLE REASON FOR EXAM: Female, 48 years old. PAIN TECHNIQUE: 2 view(s) of the ankle. COMPARISON: 12/08/2023 FINDINGS: 821 seconds of fluoroscopy was utilized in operative room during erosion or hardware of open reduction internal fixation of fractures of the distal tibia and fibula and 13 images are significant for interpretation. . RAD/Ankle 2 Views IMPRESSION: Fluoroscopy during surgery. Electronically Signed: Shawn Saucedo MD at 21:17 EDT ,
--- NOTE | 2024-01-11 21:10 | RAD_ITS ---
STUDY: X-RAY - RIGHT ANKLE REASON FOR EXAM: Female, 48 years old. Revision surgery tibia post-fall (PACU) TECHNIQUE: 3 view(s) of the ankle. COMPARISON: 12/08/2023 FINDINGS: Healing fracture of the distal metaphysis of the tibia with a anterior plate and screws. Healing fracture of the distal shaft of the fibula with a lateral plate and screws. External fixators well. Normal medial and lateral malleoli. Normal tibiotalar articulation and ankle mortise. Normal visualized talus and calcaneus. The visualized subtalar, talonavicular, calcaneocuboid and tarsal articulations are normal. The soft tissue structures are unremarkable. RAD/Ankle min 3 Views IMPRESSION: Healing fractures of the distal tibia and fibula after open reduction internal fixation with addition of an external fixator. Electronically Signed: Shawn Saucedo MD at 21:39 EDT ,
[2024-01-11] MEDS: Ketorolac 30 MG/ML Syringe IV (21:49)
--- NOTE | 2024-01-11 22:16 | OP.PCM_ITS ---
Problems Associated Problem List Diagnoses (1) Displaced pilon fracture of right tibia, sequela: (2) Pain in right lower leg: (3) Open fracture of distal end of fibula and tibia: Report of Operation Date of Procedure: 01/11/24 Pre-Operative Diagnosis: 1. Displaced pilon fracture right ankle, sequela secondary to fall s/p ORIF 2. Pain right lower extremity Post-Operative Diagnosis: 1. Displaced pilon fracture right ankle, sequela secondary to fall s/p ORIF 2. Pain right lower extremity Surgery/Procedure Performed:: 1. Revision of Displaced Tibial/Posterior malleolus/Pilon Fracture Right Ankle 2. Application of External Fixator Right Lower Extremity 3. Application of Advanced Wound Care Product Right Lower Extremity Description of Surgical Findings:: See operative note for findings Surgeon: Will Bejarano frequency checker: Trena Nagel DPM PGY-2 Type of Anesthesia: General and Local (Popliteal block by anesthesia team post- operatively in PACU) Special Medications: None Specimen's removed: None Drains: None Estimated Blood Loss (mL): <10 mL Description of Procedure: HPI/indication: Patient is a 48-year-old female who suffered open fracture secondary to fall from ladder on 12/08/2023. She did undergo emergent washout with ORIF on 12/08/2023 at [facility]. Patient was healing well and stitches were removed at 3 weeks postoperative however patient did inform me at this time she had recently fallen as her crutches got caught in the carpet at her house and she did place weight to the foot. States she did have some pain with this but later suffered muscle spasm during which the foot was dorsiflexed and patient felt a pop in the ankle with increased pain. Radiographs were taken in office demonstrating displacement of the pilon fracture posterior malleoli are fragment and a portion of the distal tibial metaphysis/diaphysis. Discussed with patient the need to undergo revisional surgery as the fracture fragment was posteriorly displaced and depressed into the joint segment by 5 mm. Patient voiced understanding of needing to return to the OR for revision and reduction of the fracture fragment. Patient understands that this is not a elective procedure and is necessary fixation to optimize her healing. I discussed the risks and complications of the procedure in detail. Discussed the risks and complications include but are not limited to the following: Pain, continued pain, complex regional pain syndrome, neuritis/numbness, infection, edema, dehiscence, delayed healing/nonhealing, delayed union/nonunion, malunion, overcorrection/under correction, pin tract infection, painful hardware, symptomatic hardware, cage rage secondary to external fixator, posttraumatic arthritis, fracture, difficulty wearing shoes/boots, inability to wear shoes/boots, contracture, decreased range of motion/ankle stiffness, addiction to pain medication, blood clot, allergic reaction, loss of function, loss of limb, loss of life. Patient voiced understanding of these risks and were able to repeat these back. Patient understands the necessity of fracture fixation and the surgical plan. Consent for revision of displaced tibial fracture/posterior malleoli fracture/pilon fracture of the right lower extremity was signed by patient freely. Patient does understand and gives consent to perform any means of reduction for fracture fixation. Patient was scheduled to undergo surgery at [facility] on 01/11/2024. Procedure: Under mild sedation patient was brought to the operating placed on the table in supine position. A blanket bump was placed under the right hip, and right lower extremity was elevated via a blanket bump. Patient was secured to table with safety belt. Following induction of general anesthesia a pneumatic thigh tourniquet was placed about the patient's right thigh. The right lower extremity was then scrubbed, prepped, and draped in the usual aseptic manner. An Esmarch bandage was utilized to exsanguinate the right lower extremity and the extremity was elevated and the pneumatic thigh tourniquet was inflated to 300 mmHg. At this time attention was directed to the anterior aspect of the right lower extremity where an incision was made through the previous surgical incision overlying the anterior distal tibia shaft and ankle utilizing a #15 blade. Incision was deepened through sharp and blunt dissection with care taken to identify and retract all vital neurovascular structures. The anterior tibial tendon was identified and retracted laterally and protected throughout the duration of this case. The anterior tibial pilon plate was identified and scar tissue was freed from the plate and surrounding bone medially and laterally and the distal 2.7 mm locking screws were removed. The 3.5 mm cortical screw was then removed from the oblong hole. All screws were passed from the operative field to the table in toto. Fracture fragment was curetted and underwent reduct ion via reduction clamp. Reduction was visualized in multiple fluoroscopic views and noted to be good reduction with restored ankle joint. Next, a medial incision was made overlying the medial malleolus utilizing a #15 blade. Incision was deepened through sharp and blunt dissection with care taken to identify and retract all vital neurovascular structures. A medial buttress plate was applied to the medial aspect of the distal tibia and temporarily pinned with olive wires. Following AO principles a 3.5x 28mm cortical screw was placed through the plate and the plate was sucked down however cortical screw did not gain purchase at the far cortex. Next, an attempt to fixate the posterior malleolus fragment posterior to anterior cortical screw was placed following AO principles however this also did not gain purchase in the far cortex. The posterior to anterior screw was then removed and passed from the operative field to the table in toto. Next, a posterior malleolus plate was then applied to the posterior malleolus with attempted temporary fixation with olive wire however olive wire did not gain purchase to temporarily anchor plate. Attempt was then made utilizing a 5 hole neutralization plate to fixate the posterior malleolus fragment, however cortical screw fixation again would not purchase far cortex from a posterior to anterior fashion. At this time the pneumatic thigh tourniquet was then deflated and a prompt hyperemic response was noted to the digits of the right foot. Following a brief rest period the pneumatic thigh tourniquet was reinflated to 300 mmHg. Posterior plate and screws were then removed and the medial buttress plate and screws were removed including the temporary fixation. At this time it is noted that the posterior malleolus also had been fractured into multiple smaller fragments creating difficulty with surgical fixation with inability to have hardware purchase for effective reduction. Fracture fragment was again reduced via reduction clamp with alignment of the ankle joint in multiple fluoroscopic views. The smaller fracture fragments were then removed from the posterior superior portion of the distal tibia and placed into saline. Following AO principles screw fixation was applied to the oblong hole in the anterior tibial plate utilizing 3.5 x 28 mm cortical screw. Next, just distal to this oblong hole following AO principle a 2.7 x 38 mm locking screw was placed. Next, the distal tibial holes of the anterior plate were filled with the following 2.7 mm locking screws 38 mm x 3, 36 mm x 1, and 30 mm x 2. Reduction clamps were then removed and the posterior malleolus was noted to be reduced with good alignment of the ankle joint in multiple fluoroscopic views. Sites were then flushed with copious amounts of normal sterile saline. Next, the multiple fracture fragments were then returned to their sites and packed with Allosync DBM that was mixed with bioactive DBM to aid in additional strength to the multiple fragments of the posterior distal tibia. Medial incision deep tissues were then closed with 2-0 Vicryl. Subcuticular tissues were then closed utilizing 4-0 Monocryl. Skin was then reapproximated utilizing 2-0 Prolene in simple interrupted fashion. Posterior stab incision was closed utilizing 2-0 Prolene in simple interrupted fashion. Next, 500 mg axiofill amnionic graft was applied to tissues to aid in wound healing in addition to the previous medial tissue defect secondary to open fracture. Following this, anterior incision deep structures were closed utilizing 2-0 Vicryl. The subcuticular tissue was then closed utilizing 4-0 Monocryl. The skin was then reapproximated utilizing 2-0 Prolene in simple interrupted fashion. The pneumatic thigh tourniquet was then deflated and a prompt hyperemic response was noted to the digits of the right foot. At this time decision was made for application of external fixator to allow for adequate fracture healing and to maintain reduction of the posterior malleolus/distal tibia. Attention was then directed to the right lower extremity where at this point, intraoperative fluoroscopy was utilized to identify the fracture sites as well as the ankle and corresponding hardware and appropriate starting point in the tibia. Following identification two 5.0 x 150 mm Schanz pins were placed into the tibia bicortically, which were visualized under fluoroscopy. Next, utilizing fluoroscopy the appropriate starting point on the calcaneus was used for the transcalcaneal crossing pin. Once identified, a single central threaded calcaneal transfixion pin, 4 mm x 200 mm was applied across the calcaneus parallel to the joint surface. After placement of all the pins, the external fixator/frame was then applied (carbon fiber rods measuring 2 x 150 mm, 1 x 250 mm, 1 x 350 mm, a 7 x 200 mm kickstand zoe, with combination of clamps x 10), with appropriate maintenance of reduction of fracture fragment. It was noted and checked with fluoroscopy that fracture fragment of tibia was in a reduced position and sagittal and coronal planes, the external fixator apparatus was then locked into place with the c application developer T-handle per the c application developer's recommendations. Next, a Schanz pin measuring 4 mm x 90 mm was replaced into the medial cuneiform and the foot was dorsiflexed to prevent equinus contracture and pins secured to the frame utilizing manufactures T- handle per manufacture recommendation. Kickstand as stated above was then applied to the frame to aid in compliance with nonweightbearing status to the manufactures recommended guidelines. X-ray images were taken to identify correct placement of the hardware with improved reduction of fracture fragments. Next, a simple 2-0 interrupted Prolene suture was utilized to aid in closure about the pin sites. The incision sites were then dressed with Xeroform. The Schanz pin, calcaneal and tibial crossing pin sites were then dressed with jumpstart pads and clips the proximal Schanz pins were covered with jumpstart and drain sponge, Kerlix, ABD, following this application of 3 points of Odilon bandage for edema control. The patient tolerated the procedure and anesthesia well was transported the PACU vital signs stable vascular status intact to the right foot. Postoperative imaging was obtained in PACU and reviewed prior to leaving. While in PACU patient did receive popliteal block by anesthesia team for postoperative pain control. She will remain nonweightbearing to the operative extremity, right lower extremity, and continue elevating with blanket bump/pillows with no pressure to the right heel. Patient and family did receive discharge instructions outlining postoperative care. They are instructed to keep the dressings clean, dry, and intact to the right lower extremity. Instructed to not get the dressings wet and to utilize cast bag if patient is showering and is to remain nonweightbearing seated on shower chair. She was instructed to take all postoperative medications as directed. Patient has first postoperative appointment with me in office early next week. Grafts/Implants Used: Arthrex 3.5mm cortical screwx 1; 2.7mm locking screws x 7. Terril Ex-Fix Complications None Admit VTE Documentation VTE Present on Admission: No VTE Mechan Device Prophylaxis: SCD's VTE Pharm Prophylaxis ordered?: Yes
== END 2024-01-11 23:00 | disposition home or self-care (01) ==
LOC: SDC 11:12 → AC 11:12
PROVIDERS: Anesthesiology; PCP Preventive Medicine Occupational Medicine; Referring Provider Student in an Organized Health Care Education/Training Program; Visit Provider Student in an Organized Health Care Education/Training Program
PROC: (CPT 27762; principal; 2024-01-11 12:40)
DX: S82.871S Displaced pilon fracture of right tibia, sequela (principal); S82.831S Other fracture of upper and lower end of right fibula, sequela; E03.9 Hypothyroidism, unspecified; W19.XXXS Unspecified fall, sequela; Z79.899 Other long term (current) drug therapy
CPT/HCPCS: 27762; 27825; 20680; 64450; 01462; 73600; 73610; 76000; 80053; 84443; 84703; C1713; J7120; J2405

== ENCOUNTER 2024-01-12 19:27 | Observation (INO) | payer BC, SELFPAY ==
[2024-01-12 19:28] VITALS: BP 158/76; PULSE 126; RESP 20; TEMP 36.3; O2SAT 100
[2024-01-12 19:29] VITALS: BP 158/76; PULSE 126; RESP 20; TEMP 36.3; O2SAT 100
--- NOTE | 2024-01-12 19:46 | RAD_ITS ---
EXAM: XR RIGHT ANKLE COMPLETE, 3 OR MORE VIEWS CLINICAL INDICATION: pain TECHNIQUE: Frontal, lateral and oblique views of the right ankle. COMPARISON: Study done yesterday FINDINGS: BONES/JOINTS: Metal sideplate fixing a fracture distal fibula. Metal plate and side screws transfixing a fracture of the distal tibia. Preservation of the joint space. No sclerotic or destructive changes observed. SOFT TISSUES: Unremarkable. No soft tissue swelling or gas. No radiopaque foreign body. OTHER FINDINGS: External fixator in place. RAD/Ankle min 3 Views IMPRESSION: Postsurgical changes within external fixator in place. Electronically Signed: Anupam Robertson MD at 20:28 EDT ,
--- NOTE | 2024-01-12 19:51 | EDS_ITS ---
HPI <TAMELA Vega - Last Filed: 01/12/24 21:56> History of Present Illness Chief Complaint: Lower Extremity Injury Narrative Narrative: Patient had an open right tibia/fibula fracture from a fall from a ladder on 12/08/2023. She had a washout with with that day with Dr. Bejarano. 3 weeks postoperatively she had stumbled and placed weight on the right foot with increased pain. Repeat x-rays had showed displacement of the healing bone fragments so she underwent revisional surgery with Dr. Bejarano on 01/11/2024. An external fixator was placed. She is taking the prescribed Percocet with additional Tylenol, Motrin, and Valium but it is not controlling her pain adequately. She spoke with Dr. Bejarano twice today and did increase the frequency of Percocet to every 4 hours but it has not helped. He recommended she come into the ED for evaluation and pain control. [facility] <TAMELA Vega - Last Filed: 01/12/24 21:56> [facility] Medical History (Updated 01/12/24 @ 21:32 by TAMELA Vega) Anemia delivery delivered Hypothyroidism Non-smoker Thyroid disease Wears glasses Home Medications levothyroxine 200 mcg tablet 200 mcg PO DAILY 12/08/23 [History Last Taken 12/07/23] aspirin 325 mg tablet 325 mg PO DAILY #20 tabs 01/11/24 [Rx Last Taken Unknown] clindamycin HCl 150 mg capsule 150 mg PO TID #30 caps 01/11/24 [Rx Last Taken 01/12/24 12:00] diazepam 2 mg tablet (Valium) 2 mg PO TID PRN muscle spasm #42 tabs 01/11/24 [Rx Last Taken Unknown] oxycodone-acetaminophen 5 mg-325 mg tablet 1 tab PO Q8H PRN pain 7 days #28 tabs 01/11/24 [Rx Last Taken Unknown] Allergy/AdvReac Type Severity Reaction Status Date / Time amoxicillin [From Trimox] Allergy Hives Verified 01/12/24 19:29 doxycycline Allergy Hives Verified 01/12/24 19:29 Penicillins [PCN] Allergy Hives Verified 01/12/24 19:29 tomato Allergy Food Verified 01/12/24 19:29 Allergy Surgical History History of open reduction and internal fixation (ORIF) procedure (~12/08/23) History of tonsillectomy (~1987) Social History Smoking Status: Never smoker ROS <TAMELA Vega - Last Filed: 01/12/24 21:56> ROS ED ROS Narrative Constitutional: Negative for fever, chills, malaise. Neuro: Negative for motor/sensory dysfunction. Musc: Positive for right lower extremity pain from surgery. EXAM <TAMELA Vega - Last Filed: 01/12/24 21:56> Physical Exam Narrative Exam Narrative: CONST: Patient appears uncomfortable sitting in bed. EYES: Normal inspection. NECK: Normal inspection. RESP: No respiratory distress, CTAB. CVS: Regular rate and rhythm, no murmur, no gallop. SKIN: Color normal, no rash, warm, dry, intact. EXTREMITIES: Splint and external fixator on right lower extremity. Normal coloration of right toes and capillary refill and sensation intact. NEURO: Alert and answering questions appropriately. PSYCH: Normal affect. Const Vital Signs: 01/12/24 19:29 01/12/24 19:28 01/12/24 20:07 Temperature 97.4 F L 97.4 F L Temperature Source Temporal Temporal Pulse Rate 126 H 126 H 96 Respiratory Rate 20 H 20 H 18 Blood Pressure 158/76 H 158/76 H 145/88 H Blood Pressure Mean 103 103 107 Pulse Ox 100 100 97 Oxygen Delivery Method Room Air Room Air Room Air 01/12/24 22:01 Temperature 98 F Temperature Source Pulse Rate 94 Respiratory Rate 18 Blood Pressure 131/79 H Blood Pressure Mean 96 Pulse Ox 99 Oxygen Delivery Method <Dr. Kurt Strange, - Last Filed: 01/12/24 22:08> Physical Exam Const Vital Signs: 01/12/24 19:29 01/12/24 19:28 01/12/24 20:07 Temperature 97.4 F L 97.4 F L Temperature Source Temporal Temporal Pulse Rate 126 H 126 H 96 Respiratory Rate 20 H 20 H 18 Blood Pressure 158/76 H 158/76 H 145/88 H Blood Pressure Mean 103 103 107 Pulse Ox 100 100 97 Oxygen Delivery Method Room Air Room Air Room Air 01/12/24 22:01 Temperature 98 F Temperature Source Pulse Rate 94 Respiratory Rate 18 Blood Pressure 131/79 H Blood Pressure Mean 96 Pulse Ox 99 Oxygen Delivery Method [facility] <Martha Hernandez PA - Last Filed: 01/12/24 21:56> [facility] Narrative Medical decision making narrative: Patient had revision surgery yesterday with external fixator placed on her right lower extremity. History of open tib-fib fracture about a month ago. She presents because her pain is not controlled at home on Percocet and Motrin. She appears uncomfortable but nontoxic. The external fixator and splint is in place. Extremity is neurovascularly intact. X-ray shows no interval change from postop imaging. She was treated with IV morphine and states she had no improvement. She was ordered IV Dilaudid and Toradol. She feels better but with any shifting movement in bed still has pain and does not feel like she can go home and adequately manage her pain level. Case was discussed with Dr. Bejarano who agreed to admit her overnight for observation. Radiography Diagnostic Testing: Clinical Impression(s) from Imaging Studies Ankle X-Ray 01/12/24 19:46 IMPRESSION: Postsurgical changes within external fixator in place. Electronically Signed: Anupam Robertson MD at 20:28 EDT , ED attending interpretation of right ankle shows postsurgical hardware and external fixator in place, unchanged from yesterday's film. <Dr. Kurt Strange DO - Last Filed: 01/12/24 22:08> [facility] Radiography Diagnostic Testing: Clinical Impression(s) from Imaging Studies Ankle X-Ray 01/12/24 19:46 IMPRESSION: Postsurgical changes within external fixator in place. Electronically Signed: Anupam Robertson MD at 20:28 EDT , Treatment and Re-Evaluation :: I have personally performed a face to face assessment of the patient and have reviewed the DICKSON Note. I performed a substantive portion of the visit including all aspects of the following. My dan findings include: History: Patient presents with pain to her right lower leg that became worse today. Patient had recent surgery for revision of her right ankle fracture. Patient states she was given prescription for pain medication to take at home. Patient states this has not been helping. Patient denies any new trauma or injury. Patient denies any fevers or chills. Exam: Vital signs are stable. Patient is afebrile. Patient is in no acute distress. There is tenderness over the right ankle area. Dressing was left in place. Sensation was intact to light touch in all digits. Capillary refill was less than 2 seconds in all digits. Pedal pulses are equal bilaterally. There is an external fixator in place. There is no calf tenderness noted. Medical Decision Making: Differential diagnosis includes postoperative pain,, fracture, and loosening of hardware. X-rays of the right ankle will be obtained to assess for fracture and loosening of hardware. Patient was given an morphine and Zofran initially. X-rays of the right ankle were obtained. There are 3 views. On my independent interpretation, there is no loosening of the hardware. There is no acute fracture noted. There are postsurgical changes noted. Radiologist also interpreted the x-rays and agrees. Patient was still having significant pain on reevaluation. Patient was given a dose of Dilaudid. Case was discussed with Dr. Bejarano from podiatry. He agrees with giving the patient Toradol. Patient states her pain is only minimally improved. Patient does not think she will be able to manage at home. Patient will be admitted to the service of Dr. Bejarano for intractable pain. Patient understood and was agreeable with the plan. All questions were answered. Discharge Plan Triage Chief Complaint: Lower Extremity Injury ED Midlevel Provider: Martha Hernandez ED Provider: Kurt Strange Dx/Rx/DC Orders Clinical Impression: Postoperative pain of extremity Prescriptions: No Action aspirin 325 mg tablet 325 mg PO DAILY Qty: 20 0RF clindamycin HCl 150 mg capsule 150 mg PO TID Qty: 30 0RF diazepam [Valium] 2 mg tablet 2 mg PO TID PRN (Reason: muscle spasm) Qty: 42 0RF oxycodone-acetaminophen 5-325 mg tablet 1 tab PO Q8H PRN (Reason: pain) 7 Days Qty: 28 0RF levothyroxine 200 mcg tablet 200 mcg PO DAILY Primary Care Provider: Mleiton Mcmahon Referrals: Meliton Mcmahon DO [Primary Care Provider] -
[2024-01-12] MEDS: Ondansetron 4 MG/2 ML Vial IV (19:55)
[2024-01-12] MEDS: Morphine 4 MG/ML Syringe IV ×2 (19:55→23:58)
[2024-01-12 20:07] VITALS: BP 145/88; PULSE 96; RESP 18; O2SAT 97
[2024-01-12 20:09] VITALS: BMI 29.2
[2024-01-12] MEDS: HYDROmorphone 1 MG/ML Syringe IV (21:14)
[2024-01-12] MEDS: Ketorolac 15 MG/ML Vial IV (21:26)
[2024-01-12 22:01] VITALS: BP 131/79; PULSE 94; RESP 18; TEMP 36.6; O2SAT 99
[2024-01-12 23:17] VITALS: BMI 28.7
--- NOTE | 2024-01-12 23:26 | HP.PCM_ITS ---
HPI - General General Date of Admission: 01/12/24 Date of Service: 01/12/24 Chief Complaint: ORIF pilon fracture right ankle HPI Narrative CHUYITA TIDWELL, is a 48 F who presents to [facility] evening of 01/12/2024 with complaints of postoperative pain uncontrolled with outpatient oral pain medication. She did undergo ORIF with washout of open tibial/fibular/pilon fracture on 12/08/2023 after fall from a ladder. Patient was healing well until a week ago when she had fallen while using crutches in house. Radiographs were taken in the office demonstrating displacement of the distal tibial fracture involving the posterior malleolus thus revisional surgery was discussed with the patient. Patient did undergo revision of pilon fracture on 01/11/2024 and did receive postoperative popliteal block for pain control in addition to oral pain medication prior to discharge home. She states she had done well overnight however the popliteal block did wear off early this a.m. and despite continued use of oral pain medication pain continued to worsen prompting response to the ED for pain control. Patient admitted under podiatry service for observational status of pain control on 01/12/2024. [facility] Medical History (Updated 01/12/24 @ 21:32 by TAMELA Vega) Anemia delivery delivered Hypothyroidism Non-smoker Thyroid disease Wears glasses Home Medications levothyroxine 200 mcg tablet 200 mcg PO DAILY 12/08/23 [History Last Taken 01/11/24 07:00] aspirin 325 mg tablet 325 mg PO DAILY #20 tabs 01/11/24 [Rx Last Taken 01/12/24 325 mg] clindamycin HCl 150 mg capsule 150 mg PO TID #30 caps 01/11/24 [Rx Last Taken 01/12/24 15:00] diazepam 2 mg tablet (Valium) 2 mg PO TID PRN muscle spasm #42 tabs 01/11/24 [Rx Last Taken 01/12/24 15:00] oxycodone-acetaminophen 5 mg-325 mg tablet 1 tab PO Q8H PRN pain 7 days #28 tabs 01/11/24 [Rx Last Taken 01/12/24 15:00] Allergy/AdvReac Type Severity Reaction Status Date / Time amoxicillin [From Trimox] Allergy Hives Verified 01/12/24 23:41 doxycycline Allergy Hives Verified 01/12/24 23:41 Penicillins [PCN] Allergy Hives Verified 01/12/24 23:41 tomato Allergy Food Verified 01/12/24 23:41 Allergy Surgical History History of open reduction and internal fixation (ORIF) procedure (~12/08/23) History of tonsillectomy (~1987) Social History Smoking Status: Never smoker ROS Constitutional Constitutional: Denies anorexia, chills, fever(s) or weakness Eyes Eyes: Denies blurry vision, diplopia or loss of vision ENT HEENT: Denies dysphagia, nasal congestion, rhinorrhea or sore throat Cardiovascular Cardiovascular: Denies chest pain, claudication or palpitations Respiratory/Chest Respiratory/Chest: Denies cough, dyspnea or shortness of breath at rest Gastrointestinal Gastrointestinal: Denies abdominal pain, constipation, diarrhea, nausea or vomiting Genitourinary Genitourinary: Denies dysuria, hematuria, urinary frequency or urinary urgency Musculoskeletal Musculoskeletal: Denies joint pain, joint stiffness or joint swelling Integumentary Integumentary: Denies jaundice, pruritus or rash Neurologic Neurologic: Denies dizziness, numbness or seizures Psychiatric Psychiatric: Denies anxiety or depression Endocrine Endocrinology: Denies polydipsia, polyphagia or polyuria Hematologic/Lymphatic Hematologic/Lymphatic: Denies easy bleeding or easy bruising Allergic/Immunologic Allergic/Immunologic: Denies wheezing Vital Signs Vital Signs Vital Signs: 01/12/24 19:29 01/12/24 19:28 01/12/24 20:07 Temperature 97.4 F L 97.4 F L Temperature Source Temporal Temporal Pulse Rate 126 H 126 H 96 Respiratory Rate 20 H 20 H 18 Blood Pressure 158/76 H 158/76 H 145/88 H Blood Pressure Mean 103 103 107 Pulse Ox 100 100 97 Oxygen Delivery Method Room Air Room Air Room Air 01/12/24 22:01 Temperature 98 F Temperature Source Pulse Rate 94 Respiratory Rate 18 Blood Pressure 131/79 H Blood Pressure Mean 96 Pulse Ox 99 Oxygen Delivery Method Weight Weight: 84.7 kg Body Mass Index (BMI) 29.2 Physical Exam Const alert, oriented x3 and no apparent distress General Appearance: cooperative HEENT normocephalic Eyes General Eye: normal appearance of both eyes Neck General: normal visual inspection Lymph Lymphatic: no lymphadenopathy noted and no lymphedema noted Resp normal respiratory effort Cardio regular rate and regular rhythm Extremity normal capillary refill and no calf tenderness Extremity Narrative: Right lower extremity: Vascular: DP and PT pulses palpable. Capillary fill time to digits is intact and brisk to all digits. Normal temperature gradient. Hair growth is intact to digits of the foot. Neurologic: Gross sensation intact. Light touch sensation intact. Protective sensation is intact with no focal deficits. Dermatologic: Skin is well-hydrated. There is some postoperative edema about the right lower extremity. Pin sites of external fixator demonstrate no local signs of infection. Incision site anterior ankle and medial ankle have sutures intact with skin well coapted. No signs of infection. Dressing is in place consisting of Xeroform, jumpstart pin site dressings, dry sterile dressing, and 3 points of Odilon wrap with ABD padding about the lower extremity. Musculoskeletal: External fixator applied to right lower extremity with dressings in place. Patient does have movement of all digits. Skin no rashes or lesions noted and no jaundice Neuro oriented x3 Results Imaging Radiology Impression Ankle X-Ray 01/12/24 19:46 IMPRESSION: Postsurgical changes within external fixator in place. Electronically Signed: Anupam Robertson MD at 20:28 EDT Reading Location ID and State: [facility] / [place] , Service support , Assessment & Plan Assessment/Plan (1) Postoperative pain of extremity: (2) Displaced pilon fracture of right tibia, sequela: (3) Pain in right lower leg: (4) Open fracture of distal end of fibula and tibia: PLAN: Plan Patient admitted for observational status for pain control Patient did suffer open fracture to 12/08/2023 secondary to fall from a ladder and underwent ORIF with washout on this date. POD#35 Patient was healing well until she had fallen last week while using crutches in addition to suffering muscle spasm resulting in refracture with displacement of the distal posterior Tibia and Posterior malleolus. She is underwent revisional surgery of pilon fracture of the right lower extremity on DOS 01/11/2024. External fixator in place to right lower extremity with Jumpstart pin site covers. Sutures are intact at the anterior ankle and medial ankle with skin well coapted. Xeroform dressing over incision sites. Lower extremity dressed with 4 x 4 gauze, ABD, Kerlix, 4 and 6 inch Odilon wrap. Dressing to remain intact to the right lower extremity. Nursing may reinforce for any strikethrough. She is to remain nonweightbearing to the right lower extremity with the assistance of walker She is to continue elevating right lower extremity at all times of rest for postoperative edema control May apply ice behind right knee for pain control Pain control: Morphine 4 mg every 4 hours, Dilaudid 1 mg every 4 hours, Toradol every 6 hours, Valium 2 mg every 8 hours, Zofran 4 mg as needed nausea. May also take Tylenol 650 mg every 6 hours I will continue to follow while in house. Patient may be discharged once pain is well-controlled via oral medication. Jr. Maame Mccormack.P.M. [facility] [place] [phone]
[2024-01-12 23:28] VITALS: BP 131/83; PULSE 80; RESP 16; TEMP 36.7; O2SAT 97
[2024-01-12] MEDS: 0.9% Saline Lock 10 ML Syringe IV (23:58)
[2024-01-13] MEDS: HYDROmorphone 1 MG/ML Syringe IV ×5 (01:12→21:50)
[2024-01-13] MEDS: 0.9% Saline Lock 10 ML Syringe IV ×8 (01:13→18:05)
[2024-01-13] MEDS: diazePAM 2 MG Tablet PO (03:09)
[2024-01-13] MEDS: Ketorolac 15 MG/ML Vial IV ×3 (03:18→18:05)
[2024-01-13] MEDS: Morphine 4 MG/ML Syringe IV ×4 (04:42→20:17)
[2024-01-13 05:43] VITALS: BP 121/83; PULSE 100; RESP 14; TEMP 37.2; O2SAT 100
[2024-01-13] MEDS: Levothyroxine 100 MCG Tablet 200 MCG PO (05:50)
[2024-01-13 08:20] VITALS: BP 127/86; PULSE 90; RESP 16; TEMP 36.7; O2SAT 98
[2024-01-13 11:43] VITALS: BP 122/71; PULSE 79; RESP 16; TEMP 36.6; O2SAT 98
[2024-01-13 16:02] VITALS: BP 125/89; PULSE 95; RESP 16; TEMP 36.8; O2SAT 100
--- NOTE | 2024-01-13 16:32 | NURSING ---
notified dr parrish that no one s seen pt today. dr parrish stated he is not planning to see her today.
[2024-01-13 20:21] VITALS: BP 134/80; PULSE 95; RESP 18; TEMP 36.8; O2SAT 98
[2024-01-14 02:56] VITALS: BP 129/80; PULSE 85; RESP 16; TEMP 36.8; O2SAT 100
[2024-01-14] MEDS: Ketorolac 15 MG/ML Vial IV ×2 (02:57→10:25)
[2024-01-14] MEDS: oxyCODONE 5 MG Tablet PO (03:07)
[2024-01-14] MEDS: Morphine 4 MG/ML Syringe IV (06:02)
[2024-01-14] MEDS: Levothyroxine 100 MCG Tablet 200 MCG PO (06:02)
--- NOTE | 2024-01-14 08:24 | PCM.PROGNOTE ---
Subjective Subjective Patient seen early this a.m. resting in bed with right foot elevated via a blanket bump. She has remained on weightbearing to the right lower extremity with external fixator in place. Patient states that her pain is improving since admission. Patient is able to void without issue. Denies constitutional symptoms. Denies further complaints. Seen again in evening with pain continuing to lessen. States she is still not sure about going home tonight. Would like to stay an additional day. Objective Data Objective Data Vital Signs: Vital Signs Temp Pulse Resp BP Pulse Ox O2 Del Method 98.2 F 85 16 129/80 H 100 Room Air 01/14/24 02:56 01/14/24 02:56 01/14/24 02:56 01/14/24 02:56 01/14/24 02:56 01/14/24 02:56 Oxygen Delivery Method Room Air Weight: 83.1 kg Body Mass Index (BMI) 28.7 Intake & Output: Intake and Output for Last 24 Hours 01/12/24 01/13/24 01/14/24 23:59 23:59 23:59 Intake Total 900 / 900 Output Total 450 / 450 Balance 450 / 450 Physical Exam Const alert, oriented x3 and no apparent distress General Appearance: cooperative HEENT normocephalic Eyes General Eye: normal appearance of both eyes Neck General: normal visual inspection Lymph Lymphatic: no lymphadenopathy noted and no lymphedema noted Resp normal respiratory effort Cardio regular rate and regular rhythm Extremity normal capillary refill and no calf tenderness Extremity Narrative: Right lower extremity: Vascular: DP and PT pulses palpable. Capillary fill time to digits is intact and brisk to all digits. Normal temperature gradient. Hair growth is intact to digits of the foot. Neurologic: Gross sensation intact. Light touch sensation intact. Protective sensation is intact with no focal deficits. Dermatologic: Skin is well-hydrated. There is some postoperative edema about the right lower extremity. Pin sites of external fixator demonstrate no local signs of infection. Incision site anterior ankle and medial ankle have sutures intact with skin well coapted. No signs of infection. Dressing is in place consisting of Xeroform, jumpstart pin site dressings, dry sterile dressing, and 3 points of Odilon wrap with ABD padding about the lower extremity. Musculoskeletal: External fixator applied to right lower extremity with dressings in place. Patient does have movement of all digits. Skin no rashes or lesions noted and no jaundice Neuro oriented x3 Assessment & Plan Assessment/Plan (1) Postoperative pain of extremity: (2) Displaced pilon fracture of right tibia, sequela: (3) Pain in right lower leg: (4) Open fracture of distal end of fibula and tibia: PLAN: Plan Patient seen and evaluated Patient admitted for pain control Patient did suffer open fracture to 12/08/2023 secondary to fall from a ladder and underwent ORIF with washout on this date. POD#37 Patient was healing well until she had fallen last week while using crutches in addition to suffering muscle spasm resulting in refracture with displacement of the distal posterior Tibia and Posterior malleolus. She is underwent revisional surgery of pilon fracture of the right lower extremity on DOS 01/11/2024. External fixator in place to right lower extremity with Jumpstart pin site covers. Sutures are intact at the anterior ankle and medial ankle with skin well coapted. Xeroform dressing over incision sites. Lower extremity dressed with 4 x 4 gauze, ABD, Kerlix, 4 and 6 inch Odilon wrap. Dressing to remain intact to the right lower extremity. Nursing may reinforce for any strikethrough. She is to remain nonweightbearing to the right lower extremity with the assistance of walker She is to continue elevating right lower extremity at all times of rest for postoperative edema control May apply ice behind right knee for pain control Pain control: Dilaudid 1 mg every 4 hours, 15 mg Toradol every 6 hours, Valium 2 mg every 8 hours, 10 mg Oxyir every 4-6 hours, Zofran 4 mg as needed nausea. May also take Tylenol 1,000 mg every 6-8 hours. Pain is improving and we are weaning pain medications. If continuing to improve and well controlled on oral medications, we will look to discharge tomorrow afternoon. I will continue to follow while in house. Patient may be discharged once pain is well-controlled via oral medication. Jr. Maame Mccormack.P.M. [facility] [phone]
[2024-01-14] MEDS: oxyCODONE 5 MG Tablet 10 MG PO ×2 (09:00→13:38)
[2024-01-14] MEDS: Acetaminophen 500 MG Tablet 1000 MG PO ×3 (09:00→21:04)
[2024-01-14 09:18] VITALS: BP 134/87; PULSE 83; RESP 18; TEMP 36.9; O2SAT 98
[2024-01-14] MEDS: 0.9% Saline Lock 10 ML Syringe IV (10:26)
--- NOTE | 2024-01-14 12:16 | CASEMGMT ---
[facility] CM to pt. room, Pt sitting up in bed in no distress. Pt confirmed she was maintaining non-weight bearing on R leg at home. Pt stated she has walker, rollator, knee scooter, and transport chair at home. Pt reports her washer and dryer are on main floor, family is bringing meals or pt. able to make her own, orders groceries from [employer]. Pt lives alone but does have assistance with family and friends. She has a friend that sells medical equipment, she will obtain bedside commode from [email or web address] or [employer]. Pt stated she has help with transport home. She denies any home going needs.
[2024-01-14] MEDS: Gabapentin 100 MG Capsule PO ×2 (13:38→21:04)
[2024-01-14 20:37] VITALS: BP 136/78; PULSE 79; RESP 16; TEMP 37.2; O2SAT 97
[2024-01-15 02:20] VITALS: BP 129/83; PULSE 83; RESP 16; TEMP 36.8; O2SAT 100
[2024-01-15] MEDS: Acetaminophen 500 MG Tablet 1000 MG PO ×2 (04:57→13:22)
[2024-01-15] MEDS: Gabapentin 100 MG Capsule PO ×2 (04:58→13:22)
[2024-01-15] MEDS: Levothyroxine 100 MCG Tablet 200 MCG PO (04:59)
[2024-01-15] MEDS: oxyCODONE 5 MG Tablet 10 MG PO (06:30)
[2024-01-15 09:10] VITALS: BP 128/79; PULSE 71; RESP 18; TEMP 36.7; O2SAT 100
--- NOTE | 2024-01-15 12:09 | PCM.DC ---
Discharge Instructions Diet Discharge Diet: No restrictions Activity Discharge Activity: May Not Drive, May Shower (Please utilize cast bag when showering to keep dressings clean, dry, and intact. May also use sponge bath for preferred method with right leg outside of the shower) and Use Walker (Please utilize walker or knee scooter to remain nonweightbearing to the right lower extremity) Weight Bearing Status: No weight bearing (Remain nonweightbearing at all times to right lower extremity with external fixator to right lower leg) Keep extremity elevated above heart level: Right Leg (Elevate right lower extremity at all times of rest for postoperative edema control) Dressing / Incision Call your doctor if you observe: Fever of 101 or Higher, Shortness of breath, Chest pain, Calf discomfort and Uncontrolled pain Remove Dressing in: leave in place till F/U (Leave dressings in place to right lower extremity about the external fixator. Physician will change dressing at first postoperative appointment.) Cleanse incision/area with: Do not get Incision Wet and Keep Dressing Clean & Dry (Please keep dressings clean, dry, and intact at all times to the right lower extremity) Follow Up Care Please Follow Up With: Will Bejarano DPM When: Patient has first postoperative appointment scheduled with me in office Test Results: Test results from this visit will be discussed in further detail at your follow-up appointment, if applicable. Discharge Plan Admission Admit Date/Time: 01/12/24 23:28 Attending Provider: Will Bejarano Primary Care Provider: Meliton Mcmahon Discharge Orders/Prescriptions Prescriptions: New gabapentin 100 mg capsule 100 mg PO BID Qty: 14 0RF No Action aspirin 325 mg tablet 325 mg PO DAILY Qty: 20 0RF clindamycin HCl 150 mg capsule 150 mg PO TID Qty: 30 0RF diazepam [Valium] 2 mg tablet 2 mg PO TID PRN (Reason: muscle spasm) Qty: 42 0RF oxycodone-acetaminophen 5-325 mg tablet 1 tab PO Q8H PRN (Reason: pain) 7 Days Qty: 28 0RF levothyroxine 200 mcg tablet 200 mcg PO DAILY Referrals / Follow Up: Meliton Mcmahon DO [Primary Care Provider] - Disposition Disposition (needs filled in before D/C Order can be placed): Home, Self Care
--- NOTE | 2024-01-15 12:16 | PCM.DC.SUM ---
Providers Date of Admission: 01/12/24 Date of Discharge: 01/15/24 Primary Care Physician: Dr. Meliton Mcmahon DO Reason For Visit: PAIN CONTROL Diagnosis Discharge Diagnosis (1) Postoperative pain of extremity: Status: Acute Code(s): G89.18 - Other acute postprocedural pain; M79.609 - Pain in unspecified limb (2) Displaced pilon fracture of right tibia, sequela: Status: Acute Code(s): S82.871S - Displaced pilon fracture of right tibia, sequela (3) Pain in right lower leg: Status: Acute Code(s): M79.661 - Pain in right lower leg (4) Open fracture of distal end of fibula and tibia: Status: Acute Code(s): S82.309B - Unspecified fracture of lower end of unspecified tibia, initial encounter for open fracture type I or II; S82.839B - Other fracture of upper and lower end of unspecified fibula, initial encounter for open fracture type I or II Plan Patient seen and evaluated Patient admitted for pain control Patient did suffer open fracture to 12/08/2023 secondary to fall from a ladder and underwent ORIF with washout on this date. POD#38 Patient was healing well until she had fallen last week while using crutches in addition to suffering muscle spasm resulting in refracture with displacement of the distal posterior Tibia and Posterior malleolus. She is underwent revisional surgery of pilon fracture of the right lower extremity on DOS 01/11/2024. External fixator in place to right lower extremity with Jumpstart pin site covers. Sutures are intact at the anterior ankle and medial ankle with skin well coapted. Xeroform dressing over incision sites. Lower extremity dressed with 4 x 4 gauze, ABD, Kerlix, 4 and 6 inch Odilon wrap. Dressing to remain intact to the right lower extremity. Nursing may reinforce for any strikethrough. She is to remain nonweightbearing to the right lower extremity with the assistance of walker She is to continue elevating right lower extremity at all times of rest for postoperative edema control May apply ice behind right knee for pain control Pain control: Dilaudid 1 mg every 4 hours, 15 mg Toradol every 6 hours, Valium 2 mg every 8 hours, 10 mg Oxyir every 4-6 hours, Zofran 4 mg as needed nausea. May also take Tylenol 1,000 mg every 6-8 hours. Pain is improved with weaning of IV medications and controlled well on oral medications as of this morning. With pain well controlled on oral medications, we will look to discharge. I will continue to follow in office for continued post-operative care. Will Bejarano Jr. D.P.M. [facility] [phone] Medications at Discharge Home Medications levothyroxine 200 mcg tablet 200 mcg PO DAILY 12/08/23 aspirin 325 mg tablet 325 mg PO DAILY #20 tabs 01/11/24 clindamycin HCl 150 mg capsule 150 mg PO TID #30 caps 01/11/24 diazepam 2 mg tablet (Valium) 2 mg PO TID PRN muscle spasm #42 tabs 01/11/24 oxycodone-acetaminophen 5 mg-325 mg tablet 1 tab PO Q8H PRN pain 7 days #28 tabs 01/11/24 gabapentin 100 mg capsule 100 mg PO BID #14 caps 01/15/24 Hospital Course Operations None Procedures None Summary of Care Provided Hospital Course: Patient underwent revisional surgery after she had fallen causing refracture of the distal tibia/pilon fracture on 01/11/2024 with internal and external fixation. Patient did receive popliteal block by anesthesia team following surgery and pain was well-controlled prior to discharge that evening. However anesthetic block did wear off overnight and patient did have trouble maintaining pain control on oral medications and did return to [facility] the evening of 01/12/2024 hospital and pain was adequately controlled through the remainder of the weekend with improvement noted 01/14/2024. IV medications were then weaned and patient did tolerate oral medications only overnight and was noted to be much improved morning of 01/15/2024. Thus patient will be discharged home today 01/15/2024 to continue oral medications as needed for postoperative pain control. Dressings to remain in place to the external fixator to the right lower extremity. Physical Exam Const alert, oriented x3 and no apparent distress General Appearance: cooperative HEENT normocephalic Eyes General Eye: normal appearance of both eyes Neck General: normal visual inspection Lymph Lymphatic: no lymphadenopathy noted and no lymphedema noted Resp normal respiratory effort Cardio regular rate and regular rhythm Extremity normal capillary refill and no calf tenderness Extremity Narrative: Right lower extremity: Vascular: DP and PT pulses palpable. Capillary fill time to digits is intact and brisk to all digits. Normal temperature gradient. Hair growth is intact to digits of the foot. Neurologic: Gross sensation intact. Light touch sensation intact. Protective sensation is intact with no focal deficits. Dermatologic: Skin is well-hydrated. There is some postoperative edema about the right lower extremity. Pin sites of external fixator demonstrate no local signs of infection. Incision site anterior ankle and medial ankle have sutures intact with skin well coapted. No signs of infection. Dressing is in place consisting of Xeroform, jumpstart pin site dressings, dry sterile dressing, and 3 points of Odilon wrap with ABD padding about the lower extremity. Musculoskeletal: External fixator applied to right lower extremity with dressings in place. Patient does have movement of all digits. Skin no rashes or lesions noted and no jaundice Neuro oriented x3 Weight / BMI Weight Weight: 83.1 kg Body Mass Index (BMI) 28.7 D/C Instructions Discharge Diet: No restrictions Weight Bearing Status: No weight bearing (Remain nonweightbearing at all times to right lower extremity with external fixator to right lower leg) Keep extremity elevated above heart level: Right Leg (Elevate right lower extremity at all times of rest for postoperative edema control) Call your doctor if you observe: Fever of 101 or Higher, Shortness of breath, Chest pain, Calf discomfort and Uncontrolled pain Cleanse incision/area with: Do not get Incision Wet and Keep Dressing Clean & Dry (Please keep dressings clean, dry, and intact at all times to the right lower extremity) Please Follow Up With: Will Bejarano DPM When: Patient has first postoperative appointment scheduled with me in office Meaningful Use Info Meaningful Use Meaningful Use Diagnoses (Choose all that apply): None applicable Ischemic Stroke Statin Dosing Therapy Reference: STATIN DOSE THERAPY REFERENCE: * Patients > 75 years receive moderate or high dose statin therapy. * Patients 75 years or YOUNGER should receive HIGH intensity statin dose unless contraindicated. You will be required to document reason for non-treatment if statin daily dose does not meet guidelines. HIGH DOSE STATIN THERAPY DAILY Atorvastatin > than or = to 40 mg Rosuvastatin > than or = to 20 mg Amlodipine + Atorvastatin > than or = to 2.5/40 mg Ezetimibe + Simvastatin 10/80 mg Simvastatin 80mg Discharge Plan Admission Admit Date/Time: 01/12/24 23:28 Attending Provider: Will Bejarano Primary Care Provider: Meliton Mcmahon Discharge Orders/Prescriptions Prescriptions: New gabapentin 100 mg capsule 100 mg PO BID Qty: 14 0RF No Action aspirin 325 mg tablet 325 mg PO DAILY Qty: 20 0RF clindamycin HCl 150 mg capsule 150 mg PO TID Qty: 30 0RF diazepam [Valium] 2 mg tablet 2 mg PO TID PRN (Reason: muscle spasm) Qty: 42 0RF oxycodone-acetaminophen 5-325 mg tablet 1 tab PO Q8H PRN (Reason: pain) 7 Days Qty: 28 0RF levothyroxine 200 mcg tablet 200 mcg PO DAILY Referrals / Follow Up: Meliton Mcmahon DO [Primary Care Provider] - Disposition Disposition (needs filled in before D/C Order can be placed): Home, Self Care
[2024-01-15 13:30] VITALS: BP 129/53; PULSE 94; RESP 16; TEMP 36.8; O2SAT 100
--- NOTE | 2024-01-15 13:55 | PHA.DC.MC.R ---
Pharmacy [facility] has performed discharge medication reconciliation and counseling for this patient. The patient's discharge medication list was reviewed for discrepancies and discrepancies were resolved. The patient was counseled on the following discharge medications and changes in medications for homegoing were reviewed. The Reason for Use, instructions for use, and potential side effects were reviewed for all new medications. The patient's questions regarding all of their medications were answered. 1. Gabapentin 100 mg PO BID x 7 days The patient was able to verbally demonstrate an understanding of their discharge medications. Medications at Discharge Home Medications levothyroxine 200 mcg tablet 200 mcg PO DAILY 12/08/23 aspirin 325 mg tablet 325 mg PO DAILY #20 tabs 01/11/24 clindamycin HCl 150 mg capsule 150 mg PO TID #30 caps 01/11/24 diazepam 2 mg tablet (Valium) 2 mg PO TID PRN muscle spasm #42 tabs 01/11/24 oxycodone-acetaminophen 5 mg-325 mg tablet 1 tab PO Q8H PRN pain 7 days #28 tabs 01/11/24 gabapentin 100 mg capsule 100 mg PO BID #14 caps 01/15/24
== END 2024-01-15 13:59 | disposition home or self-care (01) ==
LOC: ED 21:15 → MS3 23:47
PROVIDERS: Admitting Provider Student in an Organized Health Care Education/Training Program; Emergency Provider Emergency Medicine; PCP Preventive Medicine Occupational Medicine; Visit Provider Student in an Organized Health Care Education/Training Program
DX: G89.18 Other acute postprocedural pain (principal); S82.871S Displaced pilon fracture of right tibia, sequela; Z79.82 Long term (current) use of aspirin; E03.9 Hypothyroidism, unspecified; Z79.890 Hormone replacement therapy; W11.XXXS Fall on and from ladder, sequela; S82.831E Other fracture of upper and lower end of right fibula, subsequent encounter for open fracture type I or II with routine healing; W19.XXXD Unspecified fall, subsequent encounter
CPT/HCPCS: 73610; 96374; 96375; 96376; 99221; 99284; A4216; G0378; J2405

== ENCOUNTER → 2024-02-14 | Outpatient (CLI) | payer BC, SELFPAY ==
--- NOTE | 2024-02-14 13:42 | VDLE_ITS ---
Reason For Study: Pain in right leg RIGHT LEFT GSV is normal. CFV is compressible, spontaneous, phasic, CFV is compressible, spontaneous, phasic, competent, and demonstrates normal competent and demonstrates normal augmentation. augmentation. FV is compressible, spontaneous, phasic, competent and demonstrates normal augmentation. POP V is compressible, spontaneous, phasic, competent and demonstrates normal augmentation. T/P Trunk is compressible. PTV is compressible. RT PerV is compressible. Procedure This is a venous duplex using B-mode, color flow and spectral Doppler. Exam performed in department. Prox/mid-distal calf was not visualized due to external fixation device. A preliminary report was called and/or faxed to Dr. Bejarano. VL/Venous Duplex US, Unilateral Interpretation Summary Deep veins of the right lower extremity are patent and compressible segmentally . There is no evidence of right lower extremity deep vein thrombosis. The right great sapheno us vein appears patent and compressible segmentally. Ordering Physician: Will Bejarano Referring Physician: Meliton Mcmahon Performed By: Maria Victoria Bass RVT
== END | disposition home or self-care (01) ==
LOC: CVS 13:39
PROVIDERS: PCP Preventive Medicine Occupational Medicine; Referring Provider Student in an Organized Health Care Education/Training Program; Visit Provider Student in an Organized Health Care Education/Training Program
DX: M79.661 Pain in right lower leg (principal); R60.0 Localized edema
CPT/HCPCS: 93971

== ENCOUNTER 2024-03-14 11:12 | Day surgery (SDC) | payer BC, SELFPAY ==
[2024-03-14] VITALS (7 sets, daily range): BP systolic 121–136; BP diastolic 73–89; PULSE 79–91; RESP 16–20; TEMP 36.5–37.2; O2SAT 100; BMI 28.1
[2024-03-14 12:06] LABS: Absolute Lymphocyte Count 1.75 X10^3/uL (0.83-4.51); Absolute Neutrophil Count 4.1 X10^3/uL (2.0-7.7); Basophil# 0.02 X10^3/uL; Basophil% 0.3 % (0-1); Eosinophil# 0.02 X10^3/uL; Eosinophils% 0.3 % (0-5); Hematocrit 40.3 % (37-47); Hemoglobin 12.4 g/dL (12.0-15.0); Lymphocyte # 1.75 X10^3/ul (0.83-4.51); Lymphocyte % 27.7 % (19-41); Mean Corp Hgb Conc 30.8 g/dL (32-36); Mean Corpuscular Hgb 25.5 pg (27.0-32.0); Mean Corpuscular Volume 82.9 fL (81-99); Mean Platelet Vol. 10.9 fl (6.2-12.0); Monocyte% 6.3 % (0-10); NRBC Flagged by Analyzer 0 % (0-5); Neutrophil # 4.09 X10^3/uL (2.7-7.7); Neutrophil % 64.9 % (47-70); Platelet Count 343 K/mm3 (150-450); RBC Distribution Width CV 12.7 % (11.6-14.6); RBC Distribution Width SD 38.5 fl (35.1-43.9); Red Blood Count 4.86 M/mm3 (4.2-5.4); White Blood Count 6.3 K/mm3 (4.4-11.0)
[2024-03-14] MEDS: Lactated Ringers 1,000 ML 15 ML IV (12:06)
--- NOTE | 2024-03-14 12:09 | RAD_ITS ---
STUDY: X-RAY - RIGHT ANKLE REASON FOR EXAM: Female, 48 years old. Post-op ex-fix removal (PACU) TECHNIQUE: 3 views of the right ankle. COMPARISON: Right ankle radiographs dated 01/12/2024. FINDINGS: There has been interval removal of the previously seen external fixation hardware. Again seen is ORIF hardware with metal sideplate and fixating screws transfixing fractures of the distal tibia and distal fibula. Normal visualized talus and calcaneus. The visualized subtalar, talonavicular, calcaneocuboid and tarsal articulations are normal. There is a fiberglass cast surrounding the right ankle. RAD/Ankle min 3 Views IMPRESSION: Interval removal of the previously seen external fixation hardware. ORIF hardware with metal sideplate and fixating screws transfixing fractures of the distal tibia and distal fibula. Electronically Signed: Toni Aggarwal MD at 14:44 EDT ,
--- NOTE | 2024-03-14 12:09 | DCINST_ITS ---
Discharge Instructions Diet Discharge Diet: No restrictions Activity Discharge Activity: May Not Drive and May Shower (Please utilize cast bag covering when showering to keep dressings clean, dry, and intact to the right lower extremity) Weight Bearing Status: No weight bearing (Please remain nonweightbearing to the right lower extremity with the assistance of crutches/knee scooter) Keep extremity elevated above heart level: Right Leg (Elevate right lower extremity at all times of rest for postoperative edema control) Dressing / Incision Call your doctor if you observe: Fever of 101 or Higher, Shortness of breath, Chest pain, Calf discomfort and Uncontrolled pain Change Dressing in: do not change dressing Remove Dressing in: leave in place till F/U (Leave dressing in place. Physician will change dressing at first postoperative appointment) Cleanse incision/area with: Do not get Incision Wet and Keep Dressing Clean & Dry (Keep dressings clean, dry, and intact to the right lower extremity) Follow Up Care Please Follow Up With: Will Bejarano DPM When: Patient has first postoperative appointment with me early next week Test Results: Test results from this visit will be discussed in further detail at your follow- up appointment, if applicable. Discharge Plan Admission Attending Provider: Will Bejarano Primary Care Provider: Meliton Mcmahon Instructions Print Language: [place] Verdean Discharge Orders/Prescriptions Prescriptions: New oxycodone-acetaminophen 5-325 mg tablet 1 tab PO Q8H PRN (Reason: pain) 7 Days Qty: 28 0RF aspirin 325 mg tablet 325 mg PO DAILY Qty: 20 0RF clindamycin HCl 150 mg capsule 150 mg PO TID 10 Days Qty: 30 0RF No Action aspirin 325 mg tablet 325 mg PO DAILY Qty: 20 0RF diazepam [Valium] 2 mg tablet 2 mg PO TID PRN (Reason: muscle spasm) Qty: 42 0RF oxycodone-acetaminophen 5-325 mg tablet 1 tab PO Q8H PRN (Reason: pain) 7 Days Qty: 28 0RF gabapentin 100 mg capsule 100 mg PO BID PRN (Reason: NERVE PAIN) levothyroxine 200 mcg tablet 200 mcg PO DAILY Referrals / Follow Up: Meliton Mcmahon DO [Primary Care Provider] - Disposition Disposition (needs filled in before D/C Order can be placed): Home, Self Care
--- NOTE | 2024-03-14 12:15 | PCM.PRE.AN2 ---
ASA Classification* ASA Classification ASA Classification: 2 Assessment & Plan Anesthesia* Anesthesia Assessment Anesthesia Assessment: Discussed sedation and/or anesthesia options, risks, benefits, and alternatives with patient/parents/legal guardian/POA. Questions invited. The patient/parents/legal guardian/POA seems to understand and agrees to proceed with anesthesia plan. Reviewed the physical assessment, medical history, allergy history and patient home medications list prior to surgery/procedure/anesthetic and documented any changes. Performed airway and anesthesia risk assessments. Anesthesia Type Anesthesia Type: General (LMA) Pre-Assessment Diagnosis/Proposed Procedure Planned Operative Procedure(s): (R) FOOT, ANKLE Removal, External Fixation Anesthesia History Anesthesia History - news technical director: Anesthesia History - news technical director Hx Hospitalization Yes: FOOT SURGERY 03/07/24 08:10 Any Problems With Anesthesia No 03/07/24 08:10 Cholinesterase deficiency No 03/07/24 08:10 You/Your Family Experience No 03/07/24 08:10 fever (hyperthermia) with Relationship Recent Exposure to Contagious No 03/14/24 12:00 Disease Does patient have nerve No 03/07/24 08:10 stimulator Patient instructed to have device shut off --Does patient have Pacemaker No 03/14/24 12:00 or ICD? When Was Last Pacemaker Check QUESTION #4 FULL TEXT: You/Your Family Experience fever (hyperthermia) with Anesthesia Last Oral Intake Last Oral intake: Last Oral Intake NPO since 07:30 03/14/24 12:00 Meds taken in AM with sips of water? Meds patient instructed to take am of surgery PONV PONV - news technical director: PONV - news technical director Female Yes 03/07/24 08:10 HX of Motion Sickness No 03/07/24 08:10 HX of N/V After Surgery No 03/07/24 08:10 Non-Smoker Yes 03/07/24 08:10 Duration of Surgery greater No 03/07/24 08:10 than 60 minutes Number of Risk Factors 2 03/07/24 08:10 PONV Score Moderate Risk 03/07/24 08:10 Height & Weight Height & Weight: Anesthesia: Height & Weight Height 5 ft 7 in 03/14/24 12:00 Weight: 81.647 kg 03/14/24 12:00 Body Mass Index (BMI) 28.1 03/14/24 12:00 Respiratory Assessment Respiratory Assessment - news technical director: Respiratory Tract Infection Hx - news technical director Hx Respiratory Tract Infection No 03/07/24 08:10 STOP Sleep Apnea STOP Sleep Apnea - news technical director: STOP Sleep Apnea - news technical director Hx Hypertension No 03/07/24 08:10 Hx Sleep Apnea No 03/07/24 08:10 CPAP No 03/07/24 08:10 BIPAP Do you snore loudly (louder No 03/07/24 08:10 than talking or can be heard Do you often feel tired/ No 03/07/24 08:10 fatigued/ sleepy during daytime? Has anyone observed you stop No 03/07/24 08:10 breathing during sleep? STOP Results Negative 03/07/24 08:10 QUESTION #5 FULL TEXT : Do you snore loudly (louder than talking or can be heard through closed doors)? Tobacco Use History Tobacco Use History - news technical director: Tobacco Use History - news technical director Tobacco Use Smoking Status Never smoker 03/07/24 08:10 Hx Tobacco Use No 03/07/24 08:10 Years Smoking Packs Smoked per Day Smoking Cessation Date was within the last 15 years Hx Smoking Cessation Date Hx Smoking Cessation Counseling Hematologic Medial History Hematologic Hx - news technical director: Hematologic Medical Hx - slot manager Hx of Blood Transfusion No 03/07/24 08:10 Hx of Transfusion in last 3 No 03/07/24 08:10 Months Date of Last Transfusion (if within last 3 months) Ever experience any problems No 03/07/24 08:10 with transfusion(s)? Specify any problems Hx of Preganancy in last 3 No 03/07/24 08:10 Months Nurse Filling Out Transfusion [facility] 03/07/24 08:10 & Questions: Date: 03/07/24 03/07/24 08:10 Time: 08:12 03/07/24 08:10 Patient unable to answer at this time (ie. confused, unrespo /Reproduction History /Reproductive History - news technical director: /Reproductive Hx- news technical director Hx Now No 03/07/24 08:10 Gestational Age (in weeks): EDC: Hx Hx Para Hx Section SAB No 03/07/24 08:10 Active Medications Active Medications: Current Medications Generic Name Dose Route Start Last Admin Trade Name Freq PRN Reason Stop Dose Admin Clindamycin Phosphate 900 mg in 50 mls @ 75 mls/hr 03/14/24 13:00 Cleocin IV 03/14/24 13:39 PREOP ONE Lactated Ringer's 1,000 mls @ 15 mls/hr 03/14/24 11:30 03/14/24 12:06 IV 15 mls/hr .Q48H STONEY Administration Oxycodone HCl 5 mg 03/14/24 12:07 Oxycodone 5 Mg Tablet PO Q6H PRN PRN Pain Score 6-10 Anesthesia Focused Assessment* Temperature: 98.9 F Pulse Rate: 90 Blood Pressure: 136/89 Respiratory Rate: 16 Pulse Ox: 100 Oxygen Delivery Method: Room Air Airway Assessment Mouth opens: >3 cm Mallampati Score: IV Teeth Condition: Caps/Crowns (Multiple. all tight) Neck Range of motion (ROM): Limited ROM (Slightly decreased extension) Pertinent Findings EKG Pertinent Findings:: EKG done on October 28, 2022 shows normal sinus rhythm Focused Labs Anesthesia Preop lab: CBC WBC 6.3 K/mm3 (4.4-11.0) 03/14/24 11:53 RBC 4.86 M/mm3 (4.2-5.4) 03/14/24 11:53 Hgb 12.4 g/dL (12.0-15.0) 03/14/24 11:53 Hct 40.3 % (37-47) 03/14/24 11:53 Plt Count 343 K/mm3 (150-450) 03/14/24 11:53 CHEMISTRY Potassium 3.9 mmol/L (3.5-5.1) 01/11/24 12:30 Sodium 137 mmol/L (136-145) 01/11/24 12:30 Magnesium 2.3 mg/dL (1.6-2.6) 10/13/21 12:06 BUN 13 mg/dL (7-18) 01/11/24 12:30 Creatinine 0.76 mg/dL (0.55-1.02) 01/11/24 12:30 Glucose 96 mg/dL (74-106) 01/11/24 12:30 TSH 0.29 uIU/mL (0.358-3.74) L 01/11/24 12:30 COAG Review of Systems (Anesthesia) ROS Narrative System reviewed and no additional complaints, except as documented. [facility] Medical History Wears glasses Thyroid disease Anemia Non-smoker delivery delivered Hypothyroidism Home Medications ?Medication ?Instructions ?Recorded ?Last Taken ?Type levothyroxine 200 mcg tablet 200 mcg PO DAILY 12/08/23 01/11/24 07:00 History aspirin 325 mg tablet 325 mg PO DAILY #20 tabs 01/11/24 01/12/24 Rx 325 mg diazepam 2 mg tablet (Valium) 2 mg PO TID PRN muscle spasm #42 01/11/24 01/12/24 15:00 Rx tabs oxycodone-acetaminophen 5 mg-325 1 tab PO Q8H PRN pain 7 days #28 01/11/24 01/12/24 15:00 Rx mg tablet tabs gabapentin 100 mg capsule 100 mg PO BID PRN NERVE PAIN 03/07/24 Unknown History aspirin 325 mg tablet 325 mg PO DAILY #20 tabs 03/14/24 Unknown Rx clindamycin HCl 150 mg capsule 150 mg PO TID 10 days #30 caps 03/14/24 Unknown Rx oxycodone-acetaminophen 5 mg-325 1 tab PO Q8H PRN pain 7 days #28 03/14/24 Unknown Rx mg tablet tabs Allergy/AdvReac Type Severity Reaction Status Date / Time amoxicillin (From Trimox) Allergy Hives Verified 01/12/24 23:41 doxycycline Allergy Hives Verified 01/12/24 23:41 Penicillins (PCN) Allergy Hives Verified 01/12/24 23:41 tomato Allergy Food Verified 01/12/24 23:41 Allergy Surgical History History of History of open reduction and internal fixation (ORIF) procedure (~12/08/23) History of tonsillectomy (~1987) Social History Smoking Status: Never smoker
[2024-03-14 12:25] LABS: Internal QC Validated? YES +Cl - CLEAR BKGD; Pregnancy, Serum, hCG Quali. NEGATIVE Negative
[2024-03-14 12:35] LABS: ALB/GLOB Ratio 0.9 RATIO (0.9-2.4); AST(SGOT) 25 U/L (15-37); Alanine Aminotransfer ALT/SGPT 15 U/L (13-56); Albumin, Serum 3.6 g/dL (3.2-5.0); Alkaline Phosphatase 66 U/L (45-117); Anion Gap 9 (5-15); BUN 11 mg/dL (7-18); BUN/Creat Ratio 16.1 RATIO (10-20); Calcium,Total 9.7 mg/dL (8.5-10.1); Chloride 105 mmol/L (98-107); Creatinine, Serum 0.68 mg/dL (0.55-1.02); EST Glomerular Filtration Rate 98 mL/min (>60); Est Glom Filt Rate - Afr Amer 118 mL/min (>60); Estimated Creatinine Clearance 112.41 ml/min; Globulin 3.9 g/dL (2.2-4.2); Glucose 108 mg/dL (74-106); Protein, Total 7.5 g/dL (6.4-8.2); Sodium Level 140 mmol/L (136-145)
--- NOTE | 2024-03-14 12:35 | RAD_ITS ---
STUDY: X-RAY - RIGHT TIBIA AND FIBULA REASON FOR EXAM: Female, 48 years old. EXTERNAL FIXATION REMOVAL TECHNIQUE: 8 intraoperative spot films of the right tibia and fibula were obtained. COMPARISON: Right tibia/fibular radiographs dated 01/12/2024. FINDINGS: The 8 intraoperative spot films demonstrate metallic plate and screws in the distal tibia and fibula with screw fixation. RAD/Tibia & Fibula 2 Views IMPRESSION: ORIF hardware in the distal tibia and fibula. Electronically Signed: Toni Aggarwal MD at 14:30 EDT ,
[2024-03-14] MEDS: Clindamycin 900 MG/50 ML BAG 75 MG IV (12:44)
[2024-03-14] MEDS: Lidocaine 1% (20 ml mdv) 20 ML Vial (13:49)
[2024-03-14] MEDS: Bupivacaine Mpf 0.5% 30 ML VIAL (13:49)
--- NOTE | 2024-03-14 14:08 | PCM.POST.ANE ---
Anesthesia: Postop Eval I Current Vital Signs Temperature: 97.7 F Pulse Rate: 83 Blood Pressure: 123/73 Respiratory Rate: 20 Pulse Ox: 100 Oxygen Delivery Method: Room Air Assessment Airway patent: Yes Spontaneous unlabored respirations: Yes Mental status: Awake and Calm nausea: No Vomiting: No Anesthesia Complication: No Fluid Hydration Crystalloid volume administer (ml): 800 Total IV fluid infused: 800 Progress Note Anesthesia document: Postop Eval 1 completed: Yes
--- NOTE | 2024-03-14 14:28 | OP.PCM_ITS ---
Problems Associated Problem List Diagnoses (1) Displaced pilon fracture of right tibia, sequela: (2) Open fracture of distal end of fibula and tibia: (3) Pain in right lower leg: Report of Operation Date of Procedure: 03/14/24 Pre-Operative Diagnosis: 1. Displaced pilon fracture right tibia/fibula 2. Nonunion displaced pilon fracture right tibia 3. Nonpressure ulceration secondary to open fracture right leg 4. Pain right lower extremity Post-Operative Diagnosis: 1. Displaced pilon fracture right tibia/fibula 2. Nonunion displaced pilon fracture right tibia 3. Nonpressure ulceration secondary to open fracture right leg 4. Pain right lower extremity Surgery/Procedure Performed:: 1. Removal of external fixator right leg 2. Debridement of bone right leg 3. Delayed primary closure right lower extremity 4. Debridement of ulceration secondary to open fracture with application of advanced wound care product right lower extremity Description of Surgical Findings:: See operative note for findings Surgeon: Will Bejarano poultry tender: Aniyah Armenta DPM PGY-2 Type of Anesthesia: General and Local (20 cc one-to-one mixture 1% lidocaine plain 0.5% Marcaine plain) Anesthesiologist: Supa Rodriges Specimen's removed: None Drains: None Estimated Blood Loss (mL): < 5mL Description of Procedure: HPI/indication: This is a 48-year-old female who suffered a fall from a pool ladder while cleaning her gutters on 12/08/2023 and was taken to the ER at [facility] with open pilon fracture of the right lower extremity. At time patient underwent washout with ORIF and completed 72 hours of IV antibiotics. Few weeks later in postoperative period patient did stumble putting weight to the foot and then later suffered a severe muscle spasm in which she felt a pop in the ankle causing displacement of the distal tibial component. Discussed return to revise her fracture which she did undergo 01/11/2024 and an external fixation device was applied to the right lower extremity at that time in addition to revising the internal fixation and application of bone graft. Patient did wear the external fixation device for 6 weeks and stated that she could not tolerate the device any longer and requested removal as immediate as possible. It was discussed with her that given history of her muscle spasms and nature of her fracture to continue with the device to allow for further healing but removal would be scheduled. She was in agreement with this but did want removal as soon as possible. Discussed with patient and her family risk and complications of removal of the fixator followed by debridement of her nonpressure ulceration to the right lower extremity with application of advanced wound care product. Patient acknowledges and understands risks and benefits of the procedure and wishes to proceed forward with intervention. No promises were given. No guarantees were made. She did undergo medical clearance by PCP and was cleared for surgical intervention. Laboratory data was obtained and reviewed prior to entering the OR. She was scheduled to undergo removal of the external fixator of the right lower extremity, debridement of bone, delayed primary closure, and debridement of ulceration with application of advanced wound care product at [facility] on 03/14/2024. All diagnostic data and imaging was reviewed prior to entering the OR. Operative limb was signed prior to entering the OR. Patient refused popliteal block prior to entering the OR by anesthesia team. Procedure: Under mild sedation patient brought in the operating placed on table in supine position. Patient was secured to table with safety belt. Following induction of general anesthesia a blanket bump was placed under the patient's right lower extremity. Next, attention was directed to the right lower extremity where the external fixator was disassembled and removed with the medial cuneiform pin, calcaneal pin, and 2 tibial pins remaining. At this time the right lower extremity was scrubbed, prepped, and draped in the usual aseptic manner. Next, fluoroscopic image were obtained of the right lower extremity demonstrating pin placement and to evaluate fracture healing. At this time attention was directed to the right lower extremity where all pins were then removed and all pin sites underwent sharp excisional debridement of the subcutaneous tissue and bone via curettage. All pin sites were then flushed with copious amounts of normal sterile saline. 2-0 Prolene was utilized to close all pin sites in simple interrupted fashion. Next, sharp excisional debridement to the level of the subcutaneous tissue was performed to the eschar at the anterior right lower extremity in the medial lower extremity at sites of prior incision and open fracture respectively utilizing a #15 blade. 100% of the ulceration was debrided to healthy bleeding tissue. No evidence of bone exposure or tendon exposure was present. All tissue postdebridement appeared healthy and granular in nature. Bleeding was controlled via pressure and gauze. Site was then flushed with copious amounts of normal sterile saline. Site was patted dry with a lap sponge in anticipation of the advanced wound care product. Ulceration postdebridement measures 4.0 cm x 5.0 cm x 0.1 cm. 1000 mg of the advanced wound care product, Axiofill was applied to the wound bed. Cavilon skin prep was utilized to the borders of the wound site and the site was dressed with Adaptic and anchored with Steri-Strips. At this time a local anesthetic block was performed proximal to the tibial pin sites about the lower extremity consisting of 20 cc one-to-one mixture 1% lidocaine plain and 0.5% Marcaine plain. Next, fluoroscopic imaging was obtained demonstrating removal of the external fixation and pin sites and final evaluation of her prior fracture healing. Next the graft site was then dressed with Aquacel Ag and 4 x 4 gauze. Closed pin sites were dressed with Betadine soaked Adaptic, 4 x 4 gauze. Right lower knee was dressed then with Kerlix, Webril cast padding, 4 inch Odilon, and 6 inch Odilon wrap. A well molded AO splint was then applied to the right lower extremity and anchored with a 4 inch and 6 inch Odilon wrap. There was a pocket made to the anterior lateral aspect where a marking pen was utilized to make an exit over the fracture site as the patient will place the bone stimulator at this site in the postoperative period for continued healing. The patient tolerated the procedure and anesthesia well and was transported to PACU vital signs stable vascular status intact to the right lower extremity and digits. Patient will continue to utilize bone stimulator in the postoperative period for continued aid in healing. She is to continue nonweightbearing status to the right lower extremity with the assistance of crutches/knee scooter. She is to keep all dressings clean, dry, and intact to the right lower extremity and utilize cast bag when showering to aid in this. She has remained seated on shower chair to be compliant with the nonweightbearing status. She is to continue to elevate the right lower extremity at all times and rest for postoperative edema control. All of this was discussed with patient and family and outlined in the discharge instructions. Patient will continue to follow with me in the postoperative period and has appointment in office early next week. Grafts/Implants Used: 1000m Axiofill Procedure Start Time: 13:00 Procedure Stop Time: 13:33 Complications None Admit VTE Documentation VTE Present on Admission: No VTE Mechan Device Prophylaxis: SCD's VTE Pharm Prophylaxis ordered?: Yes
--- NOTE | 2024-03-14 15:30 | POSTOPAN2_ITS ---
Anesthesia Postop Eval I Sum Postop Eval Completion status Anesthesia document: Postop Eval 1 completed: Yes Anesthesia Postop Eval I Summary Anesthesia Postop Eval I Summary: Anesthesia Postop Eval I: Assessment Summary Airway patent Yes 03/14/24 14:10 DREDGE OR BARGE SHORE [email or web address] Spontaneous unlabored Yes 03/14/24 14:10 DREDGE OR BARGE SHORE [email or web address] respirations Mental status Awake,Calm 03/14/24 14:10 DREDGE OR BARGE SHORE [email or web address] nausea No 03/14/24 14:10 DREDGE OR BARGE SHORE [email or web address] Vomiting No 03/14/24 14:10 DREDGE OR BARGE SHORE [email or web address] Anesthesia Postop Eval I: Fluid Summary Crystalloid volume administer 800 03/14/24 14:10 DREDGE OR BARGE SHORE [email or web address] (ml) Colloids volume administered ( ml) Blood Product volume administered (ml) Total IV fluid infused 800 03/14/24 14:10 DREDGE OR BARGE SHORE [email or web address] Anesthesia Postop Eval I: Summary Notes Anesthesia Complication No 03/14/24 14:10 DREDGE OR BARGE SHORE [email or web address] Anesthesia Complication Comment: Post-operative progress note Anesthesia: Postop Eval II Evaluation Mental status: Awake and Calm Pain Level: 0 nausea: No Vomiting: No Complications Anesthesia Complication: No
--- NOTE | 2024-03-14 15:30 | PCM.POSTANE2 ---
Anesthesia Postop Eval I Sum Postop Eval Completion status Anesthesia document: Postop Eval 1 completed: Yes Anesthesia Postop Eval I Summary Anesthesia Postop Eval I Summary: Anesthesia Postop Eval I: Assessment Summary Airway patent Yes 03/14/24 14:10 BODY [email or web address] Spontaneous unlabored Yes 03/14/24 14:10 BODY [email or web address] respirations Mental status Awake,Calm 03/14/24 14:10 BODY [email or web address] nausea No 03/14/24 14:10 BODY [email or web address].JDEF Vomiting No 03/14/24 14:10 BODY [email or web address] Anesthesia Postop Eval I: Fluid Summary Crystalloid volume administer 800 03/14/24 14:10 BODY [email or web address] (ml) Colloids volume administered ( ml) Blood Product volume administered (ml) Total IV fluid infused 800 03/14/24 14:10 BODY [email or web address] Anesthesia Postop Eval I: Summary Notes Anesthesia Complication No 03/14/24 14:10 BODY [email or web address] Anesthesia Complication Comment: Post-operative progress note Anesthesia: Postop Eval II Evaluation Mental status: Awake and Calm Pain Level: 0 nausea: No Vomiting: No Complications Anesthesia Complication: No
== END 2024-03-14 15:28 | disposition home or self-care (01) ==
LOC: SDC 11:14 → AC 11:15
PROVIDERS: Anesthesiology; PCP Preventive Medicine Occupational Medicine; Referring Provider Student in an Organized Health Care Education/Training Program; Visit Provider Student in an Organized Health Care Education/Training Program
PROC: (CPT 20694; principal; 2024-03-14 12:45)
DX: S82.871K Displaced pilon fracture of right tibia, subsequent encounter for closed fracture with nonunion (principal); L97.919 Non-pressure chronic ulcer of unspecified part of right lower leg with unspecified severity; S82.409 Unspecified fracture of shaft of unspecified fibula; E03.9 Hypothyroidism, unspecified; Z79.82 Long term (current) use of aspirin; Z79.899 Other long term (current) drug therapy; W19.XXXS Unspecified fall, sequela
CPT/HCPCS: 20694; 11012; 13160; 11044; 15271; 73590; 73610; 76000; 80053; 84703; 85025; J7120; J2405

== ENCOUNTER 2024-04-04 11:01 | Emergency (ER) | payer BC, SELFPAY ==
[2024-04-04 11:02] VITALS: BP 169/101; PULSE 118; RESP 18; TEMP 36.1; O2SAT 100
--- NOTE | 2024-04-04 11:14 | EKG12_ITS ---
Test Reason : HTN Blood Pressure : / mmHG Vent. Rate : 087 BPM Atrial Rate : 087 BPM P-R Int : 156 ms QRS Dur : 082 ms QT Int : 360 ms P-R-T Axes : 058 058 043 degrees QTc Int : 433 ms Normal sinus rhythm Normal ECG Confirmed by JAMILA SAEED, HITESH ([id number]), editorial assistant OBI SAAVEDRA ([id number]) on 04/09/2024 10:46:18 A M Referred By: Confirmed By:RICARDO MARINO MD
--- NOTE | 2024-04-04 11:16 | EX.ED.DYSGE1 ---
HPI <AARTI Terrazas - Last Filed: 04/04/24 13:58> History of Present Illness Chief Complaint: Hypertension Narrative Narrative: Patient is a 48-year-old female with history of hypothyroidism, who currently is undergoing treatment therapy for a fracture to the right foot/ankle. Patient sees Dr. Bejarano, patient had surgery on the right foot/ankle on March 14, 2024. Patient states he has not been moving much. Patient has recently started ambulating with crutches, while she was at the store yesterday using the crutches, she felt dizzy, and had a syncopal episode. She did strike her head. Patient states today she was following up with orthopedic surgeon when she was walking again again felt like she was going to pass out however did not today. Her blood pressure was elevated today, she is more concerned and is here for evaluation. She denies any chest pain or shortness of breath. Denies any history of blood clots the legs or lungs. Most recent surgery was on March 14, 2024. [facility] <AARTI Terrazas - Last Filed: 04/04/24 13:58> [facility] Medical History Wears glasses Thyroid disease Anemia Non-smoker delivery delivered Hypothyroidism Home Medications ?Medication ?Instructions ?Recorded ?Last Taken ?Type levothyroxine 200 mcg tablet 200 mcg PO DAILY 12/08/23 01/11/24 07:00 History diazepam 2 mg tablet (Valium) 2 mg PO TID PRN muscle spasm #42 01/11/24 01/12/24 15:00 Rx tabs oxycodone-acetaminophen 5 mg-325 1 tab PO Q8H PRN pain 7 days #28 01/11/24 01/12/24 15:00 Rx mg tablet tabs gabapentin 100 mg capsule 100 mg PO BID PRN NERVE PAIN 03/07/24 Unknown History clindamycin HCl 150 mg capsule 150 mg PO TID 10 days #30 caps 03/14/24 Unknown Rx oxycodone-acetaminophen 5 mg-325 1 tab PO Q8H PRN pain 7 days #28 03/14/24 Unknown Rx mg tablet tabs aspirin 325 mg tablet,delayed 325 mg PO DAILY 04/04/24 Unknown History release Allergy/AdvReac Type Severity Reaction Status Date / Time amoxicillin (From Trimox) Allergy Hives Verified 04/04/24 11:02 doxycycline Allergy Hives Verified 04/04/24 11:02 Penicillins (PCN) Allergy Hives Verified 04/04/24 11:02 tomato Allergy Food Verified 04/04/24 11:02 Allergy Surgical History History of History of open reduction and internal fixation (ORIF) procedure (~12/08/23) History of tonsillectomy (~1987) Social History Smoking Status: Never smoker ROS <YAS TerrazasC - Last Filed: 04/04/24 13:58> ROS ED ROS Narrative Constitutional: Negative for fever, chills, weight loss, weakness Eyes: Negative for vision loss, vision change, double vision ENT: Negative for any sore throat, ear pain, congestion Cardiovascular: Negative for any chest pain, tightness, palpitations. Positive for syncope Respiratory: Negative for any cough, sputum production, hemoptysis, dyspnea, dyspnea on exertion, orthopnea Gastrointestinal: Negative for any abdominal pain, nausea, vomiting, diarrhea, constipation, blood in stool, blood in vomit : Negative for any urinary frequency, dysuria, retention, blood in urine Muscle skeletal: Negative for any neck pain, back pain Neurological: Positive for any headache, syncope, dizziness Skin: Negative for any rashes, itching, abrasions, lacerations Psychiatric: Negative for any depression, anxiety, stress, suicidal ideation, homicidal ideation Hematologic: Negative for any excessive bruising, easy bleeding EXAM <YAS TerrazasC - Last Filed: 04/04/24 13:58> Physical Exam Narrative Exam Narrative: Vital signs reviewed. Patient's blood pressure was slightly elevated at 169/101, heart rate was 118. HEET: Head normocephalic atraumatic, TMs clear bilaterally. Posterior pharynx is clear, dry mucous membranes. Nares clear bilaterally. Pupils are equal round reactive to light, patient does have some ecchymosis around the right eye negative for any hemotympanum, septal hematoma. Neck: Supple with no lymphadenopathy or tenderness. No signs of meningismus. Cardiac: Regular rate and rhythm no murmurs gallops or rubs, equal peripheral pulses bilaterally. Respiratory: Lungs clear to auscultation bilaterally. No chest tenderness. Abdomen: Soft, nontender, nondistended. No abdominal bruit or pulsatile masses. No hepatosplenomegaly Extremities: No peripheral edema, no signs of gross trauma or deformity. Active full range of motion of all extremities. Neuro: Cranial nerves II through XII intact, no focal neurological deficits. Skin: Clean dry and intact with no rash, purpura, petechiae, vesicles or pustules. Backs/flank: No CVA tenderness, no midline spinal tenderness, no deformity. Psych: Normal mood and affect. No SI, HI or acute psychosis. Const Vital Signs: 04/04/24 11:02 04/04/24 11:18 04/04/24 11:22 Temperature 97 F L Temperature Source Temporal Pulse Rate 118 H Respiratory Rate 18 Respiratory Effort Normal Respiratory Pattern Normal Blood Pressure 169/101 H Blood Pressure Mean 123 Pulse Ox 100 99 Oxygen Delivery Method Room Air 04/04/24 11:27 04/04/24 13:02 04/04/24 14:03 Temperature 98.6 F Temperature Source Pulse Rate 89 Respiratory Rate 9 L 12 Respiratory Effort Respiratory Pattern Blood Pressure 144/98 H 129/81 H 112/54 L Blood Pressure Mean 113 97 73 Pulse Ox 99 100 Oxygen Delivery Method Positive well nourished and well developed General Appearance ED: well developed <Dr. Kurt Strange DO - Last Filed: 04/04/24 19:48> Physical Exam Const Vital Signs: 04/04/24 11:02 04/04/24 11:18 04/04/24 11:22 Temperature 97 F L Temperature Source Temporal Pulse Rate 118 H Respiratory Rate 18 Respiratory Effort Normal Respiratory Pattern Normal Blood Pressure 169/101 H Blood Pressure Mean 123 Pulse Ox 100 99 Oxygen Delivery Method Room Air 04/04/24 11:27 04/04/24 13:02 04/04/24 14:03 Temperature 98.6 F Temperature Source Pulse Rate 89 Respiratory Rate 9 L 12 Respiratory Effort Respiratory Pattern Blood Pressure 144/98 H 129/81 H 112/54 L Blood Pressure Mean 113 97 73 Pulse Ox 99 100 Oxygen Delivery Method MDM <AARTI Terrazas - Last Filed: 04/04/24 13:58> [facility] Lab Data Labs: Laboratory Results - last 24 hr 04/04/24 04/04/24 11:15 13:27 WBC 5.3 RBC 4.96 Hgb 12.6 Hct 39.8 MCV 80.2 L MCH 25.4 L MCHC 31.7 L RDW Std Deviation 39.5 RDW Coeff of Roney 13.7 Plt Count 357 MPV 11.0 Immature Gran % (Auto) 0.400 Neut % (Auto) 62.3 Lymph % (Auto) 28.5 [place] % (Auto) 8.2 Eos % (Auto) 0.2 Baso % (Auto) 0.4 Absolute Neuts (auto) 3.3 Absolute Lymphs (auto) 1.50 Nucleated RBC % 0 D-Dimer Quant (PE/DVT) 1.39 H* Sodium 137 Potassium 3.6 Chloride 107 Carbon Dioxide 25.0 Anion Gap 5 BUN 9 Creatinine 0.83 Estim Creat Clear Calc 94.18 Est GFR (MDRD) Af Amer 95 Est GFR (MDRD) Non-Af 78 BUN/Creatinine Ratio 10.9 Glucose 134 H Calcium 9.5 Troponin I High Sens 26 21 TSH 0.20 L Radiography Diagnostic Testing: Clinical Impression(s) from Imaging Studies Chest X-Ray 04/04/24 11:25 IMPRESSION: Hyperinflation. The lungs are clear. Electronically Signed: George Crawford MD at 12:00 EDT , Brain CT 04/04/24 11:26 IMPRESSION: Normal unenhanced CT scan of the brain. Electronically Signed: George Crawford MD at 12:08 EDT , Chest CTA 04/04/24 11:55 IMPRESSION: No evidence of pleural embolism. Electronically Signed: George Crawford MD at 13:02 EDT , Treatment and Re-Evaluation :: Differential diagnosis includes however is not limited to: Vasovagal syncope, pulmonary embolus, electrode abnormality, cardiac arrhythmia, ACS, RI, dehydration Patient appears to be in no obvious respiratory distress vital signs show slight hypertension, heart rate 115. Presenting to the emergency department after syncopal episode, initial episode today, as well as elevated blood pressure. Secondary to patient having recent surgery, not being very ambulatory, patient will receive a cardiac workup including a D-dimer to rule out any pulmonary embolus. EKG will be obtained, IV fluids be given. Laboratory values looking for any electrode abnormality will be ordered. Chest x-ray will be ordered. All radiologic examinations were read, reviewed by the emergency department attending. From these reads, a plan of care will be put in place. Patient's CBC was unremarkable, patient's chemistries show a normal troponin at 26, repeat will be drawn. Patient's TSH was slightly low at 0.20, in December 2023, it was 0.29, this is consistent. Patient's D-dimer was elevated at 1.39 secondary to this finding, patient will receive a CTA of the chest. Chest x-ray read by ER physician shows hyperinflation, however the lungs are clear. CT of the chest was negative for any pulmonary embolism. Patient was able to ambulate with a walker with no difficulty. Negative for any dizziness, near syncope. Patient will receive a repeat troponin, as long as this is negative, the patient will be able to be discharged home. Patient's blood pressure is improved with a blood pressure of 129/81. Patient's troponin was 21 which is low. Patient at this time was able to ambulate without any difficulty, on reevaluation patient was feeling much better. At this time, there is no evidence of any ACS RI, PE. Patient instructed to maintain hydration change positions slowly. She is happy the plan of care, patient stable for discharge. <Dr. Kurt Strange, DO - Last Filed: 04/04/24 19:48> [facility] Narrative Medical decision making narrative: I have personally performed a face to face assessment of the patient and have reviewed the DICKSON Note. I performed a substantive portion of the visit including all aspects of the following. My dan findings include: History: Patient presents with a syncopal episode and elevated blood pressure that occurred yesterday. Patient was at a grocery store when she had a syncopal episode yesterday. Patient states that EMS was called but she did not want to be transported at that time. Patient states that today she also had a near syncopal episode and noted her blood pressure was elevated. 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 Patient was then referred to the emergency department. Patient states she has had episodes of lightheadedness today. Exam: Vital signs are stable except for an elevated blood pressure 169/101 and mild tachycardia of 118. Patient is afebrile. Patient is in no acute distress. Oral mucosa is pink and moist. Neck is supple. Trachea is midline. There is no JVD. Heart was regular and tachycardic. Lungs are clear and equal bilateral. Abdomen is soft. Bowel sounds are normal. There is no tenderness. Cranial nerves II through XII are intact. There are no focal motor or sensory deficits noted. There is a walking boot noted on the right lower leg and ankle. Medical Decision Making: Differential diagnosis includes cardiac dysrhythmia, cardiac ischemia, pulmonary embolism, electrolyte abnormality, dehydration, intracranial bleeding, hypothyroidism, and hyperthyroidism. CBC will be obtained to assess for leukocytosis and anemia. Basic metabolic profile will be obtained to assess for electrolyte abnormality and renal function. D-dimer will be obtained to assess for pulmonary embolism. High-sensitivity troponin will be obtained to assess for cardiac ischemia. 2-hour repeat high-sensitivity troponin will be obtained to assess for ongoing cardiac ischemia. TSH will be obtained to assess for hypothyroidism and hyperthyroidism. CT scan of the brain will be obtained to assess for intracranial bleeding and stroke. Chest x-ray will be obtained to assess for pneumonia and pneumothorax. EKG will be obtained to assess for cardiac dysrhythmia and cardiac ischemia. EKG was obtained. On my independent interpretation, shows normal sinus rhythm with a rate of 87. NH interval, QRS interval, and QTc intervals are within normal limits. [place] is normal. There are no acute ST or T wave changes noted. Portable 1 view chest x-ray was obtained. On my independent interpretation, lung millard are clear. There is normal cardiac silhouette. Bony thorax is normal. There is no acute process noted. Radiologist also interpreted the x-ray and agrees. CT scan of the brain was obtained. There is no acute intracranial abnormality. This was interpreted by the radiologist and was also independently reviewed by myself. CBC was reviewed and it was within normal limits. Basic metabolic profile was reviewed and was within normal limits. Patient initial high-sensitivity troponin was reviewed and was normal at 26. TSH was reviewed and was slightly low at 0.20. D-dimer was reviewed and was elevated at 1.39. 2-hour repeat high-sensitivity troponin was reviewed and was normal at 21. Because of the elevated D-dimer, CTA of the chest was obtained. There is no evidence of pulmonary embolism. There is no acute process noted. This was interpreted by the radiologist was also independently reviewed by myself. Patient was advised of her findings. Patient was instructed to follow-up with her primary care physician in 5 to 7 days. Patient was instructed to return if worse in any way. Patient understood and was agreeable with the plan. All questions were answered. Lab Data Labs: Laboratory Results - last 24 hr 04/04/24 04/04/24 11:15 13:27 WBC 5.3 RBC 4.96 Hgb 12.6 Hct 39.8 MCV 80.2 L MCH 25.4 L MCHC 31.7 L RDW Std Deviation 39.5 RDW Coeff of Roney 13.7 Plt Count 357 MPV 11.0 Immature Gran % (Auto) 0.400 Neut % (Auto) 62.3 Lymph % (Auto) 28.5 [place] % (Auto) 8.2 Eos % (Auto) 0.2 Baso % (Auto) 0.4 Absolute Neuts (auto) 3.3 Absolute Lymphs (auto) 1.50 Nucleated RBC % 0 D-Dimer Quant (PE/DVT) 1.39 H* Sodium 137 Potassium 3.6 Chloride 107 Carbon Dioxide 25.0 Anion Gap 5 BUN 9 Creatinine 0.83 Estim Creat Clear Calc 94.18 Est GFR (MDRD) Af Amer 95 Est GFR (MDRD) Non-Af 78 BUN/Creatinine Ratio 10.9 Glucose 134 H Calcium 9.5 Troponin I High Sens 26 21 TSH 0.20 L Radiography Diagnostic Testing: Clinical Impression(s) from Imaging Studies Chest X-Ray 04/04/24 11:25 IMPRESSION: Hyperinflation. The lungs are clear. Electronically Signed: George Crawford MD at 12:00 EDT , Brain CT 04/04/24 11:26 IMPRESSION: Normal unenhanced CT scan of the brain. Electronically Signed: George Crawford MD at 12:08 EDT , Chest CTA 04/04/24 11:55 IMPRESSION: No evidence of pleural embolism. Electronically Signed: George Crawford MD at 13:02 EDT , Discharge Plan Triage Chief Complaint: Hypertension ED Midlevel Provider: Frank Ferrari ED Provider: Kurt Strange Dx/Rx/DC Orders Clinical Impression: Syncope, Dizziness, Head injury, Concussion Instructions: ED Concussion, ED Dizziness, Uncertain Cause, ED Fainting, Vagal Reaction Prescriptions: No Action diazepam [Valium] 2 mg tablet 2 mg PO TID PRN (Reason: muscle spasm) Qty: 42 0RF oxycodone-acetaminophen 5-325 mg tablet 1 tab PO Q8H PRN (Reason: pain) 7 Days Qty: 28 0RF gabapentin 100 mg capsule 100 mg PO BID PRN (Reason: NERVE PAIN) oxycodone-acetaminophen 5-325 mg tablet 1 tab PO Q8H PRN (Reason: pain) 7 Days Qty: 28 0RF clindamycin HCl 150 mg capsule 150 mg PO TID 10 Days Qty: 30 0RF levothyroxine 200 mcg tablet 200 mcg PO DAILY aspirin 325 mg tablet,delayed release (DR/EC) 325 mg PO DAILY Primary Care Provider: Meliton Mcmahon Referrals: Meliton Mcmahon DO [Primary Care Provider] - Activity Restrictions/Additional Instructions: You need to follow-up outpatient. You need to maintain your hydration. Return here for any worsening symptoms. There is no evidence of any pulmonary embolus or heart issues today. You had a negative workup. Change positions slowly. Print Language: Senegalese Disposition Disposition: Home, Self Care Discharge Date/Time: 04/04/24 14:05
[2024-04-04 11:18] VITALS: O2SAT 99
[2024-04-04] MEDS: 0.9% Normal Saline (1000mL) 1,000 ML 999 ML IV (11:20)
[2024-04-04 11:22] VITALS: BMI 29.5
--- NOTE | 2024-04-04 11:25 | RAD_ITS ---
STUDY: X-RAY CHEST REASON FOR EXAM: Female, 48 years old. Chest pain TECHNIQUE: Single AP portable view of the chest. COMPARISON: Comparison is made with prior study December 30, 2018. FINDINGS: EKG electrodes are seen. Hyperinflation. The lungs are clear. There is no demonstrated pleural abnormality. Normal size heart. Normal mediastinum and fco. Normal visualized pulmonary arteries. Normal visualized aortic arch and descending thoracic aorta. Normal visualized thoracic spine. Normal visualized ribs, clavicles, and shoulders. There is no demonstrated abnormality of the visualized soft tissue structures of the upper abdomen. RAD/Chest 1 View (Portable) IMPRESSION: Hyperinflation. The lungs are clear. Electronically Signed: George Crawford MD at 12:00 EDT ,
--- NOTE | 2024-04-04 11:26 | CT_ITS ---
STUDY: CT BRAIN WITHOUT CONTRAST REASON FOR EXAM: Female, 48 years old. Head injury. Syncopal episode. Hypertension. RADIATION DOSAGE (If Supplied By Facility): CTDIvol = ( 44.99 ) mGy, DLP = ( 829.85 ) mGycm TECHNIQUE: Transaxial CT imaging of the brain was performed without administration of intravenous contrast material. Individualized dose optimization techniques were used for this CT. COMPARISON: No relevant priors. FINDINGS: Normal soft tissue structures. Normal calvarium. Normal size ventricles and extra-axial spaces for the patient''s age. Normal white matter tracts of the cerebral hemispheres. There are small punctate calcifications of the basal ganglia which are seen in the aging brain as a normal variant. Normal brainstem. Normal cerebellum. There is no intracranial hemorrhage. There are no findings of an acute ischemic infarction. Normal visualized paranasal sinuses. CT/Brain/Head without Contrast IMPRESSION: Normal unenhanced CT scan of the brain. Electronically Signed: George Crawford MD at 12:08 EDT ,
[2024-04-04 11:27] VITALS: BP 144/98
[2024-04-04 11:37] LABS: Absolute Neutrophil Count 3.3 X10^3/uL (2.0-7.7); Basophil# 0.02 X10^3/uL; Basophil% 0.4 % (0-1); Eosinophil# 0.01 X10^3/uL; Eosinophils% 0.2 % (0-5); Hematocrit 39.8 % (37-47); Hemoglobin 12.6 g/dL (12.0-15.0); Lymphocyte % 28.5 % (19-41); Mean Corp Hgb Conc 31.7 g/dL (32-36); Mean Corpuscular Hgb 25.4 pg (27.0-32.0); Mean Corpuscular Volume 80.2 fL (81-99); Monocyte# 0.43 X10^3/uL; Monocyte% 8.2 % (0-10); NRBC Flagged by Analyzer 0 % (0-5); Neutrophil # 3.29 X10^3/uL (2.7-7.7); Neutrophil % 62.3 % (47-70); Platelet Count 357 K/mm3 (150-450); RBC Distribution Width CV 13.7 % (11.6-14.6); RBC Distribution Width SD 39.5 fl (35.1-43.9); Red Blood Count 4.96 M/mm3 (4.2-5.4); White Blood Count 5.3 K/mm3 (4.4-11.0)
[2024-04-04 11:47] LABS: D-Dimer Quantitative (DVT/PE) 1.39 FEU/ug/m (0.27-0.49)
[2024-04-04 11:53] LABS: Anion Gap 5 (5-15); BUN 9 mg/dL (7-18); BUN/Creat Ratio 10.9 RATIO (10-20); Calcium,Total 9.5 mg/dL (8.5-10.1); Chloride 107 mmol/L (98-107); Creatinine, Serum 0.83 mg/dL (0.55-1.02); EST Glomerular Filtration Rate 78 mL/min (>60); Est Glom Filt Rate - Afr Amer 95 mL/min (>60); Estimated Creatinine Clearance 94.18 ml/min; Glucose 134 mg/dL (74-106); Potassium 3.6 mmol/L (3.5-5.1); Sodium Level 137 mmol/L (136-145); Troponin-I HS (w/2H Reflex) 26 pg/mL (3.0-54.0)
--- NOTE | 2024-04-04 11:55 | CT_ITS ---
STUDY: CTA CHEST REASON FOR EXAM: Female, 48 years old. Elevated D-dimer RADIATION DOSAGE (If Supplied By Facility): CTDIvol = ( 8.24 ) mGy, DLP = ( 335.88 ) mGycm TECHNIQUE: The examination was performed with the intravenous administration of IV 100mL [id number]. Post-processing of the angiographic images was performed, with multiplanar reformation and 3D reconstruction. Individualized dose optimization techniques were used for this CT. COMPARISON: Comparison is made with prior chest radiograph done earlier today. FINDINGS: Normal enhancement of the main pulmonary artery and right and left pulmonary arteries. Normal enhancement of the bilateral peripheral pulmonary arteries. There is no demonstrated pulmonary embolism. Normal thoracic aorta and visualized great vessels. There is no demonstrated aortic dissection. Normal heart and pericardium. No coronary artery calcification is seen. Normal mediastinum. Normal hilar regions. Normal visualized trachea and bronchi. The lungs are well expanded. Minimal increased linear markings in the peripheral lateral aspect of the right upper lobe suggestive of mild scarring. Normal pleura. Normal chest wall structures. Normal osseous structures. Normal visualized upper abdomen. CT/CTA Chest W/WO Contrast IMPRESSION: No evidence of pleural embolism. Electronically Signed: George Crawford MD at 13:02 EDT ,
[2024-04-04 13:02] VITALS: BP 129/81; RESP 9; O2SAT 99
[2024-04-04 13:21] LABS: Reflex Troponin-HS? (from REC) Y
[2024-04-04 13:53] LABS: Troponin-I HS 21 pg/mL (3.0-54.0)
[2024-04-04 14:03] VITALS: BP 112/54; PULSE 89; RESP 12; TEMP 37; O2SAT 100
== END 2024-04-04 14:05 | disposition home or self-care (01) ==
PROVIDERS: Nurse Practitioner; Emergency Provider Emergency Medicine; PCP Preventive Medicine Occupational Medicine; Visit Provider Emergency Medicine
DX: S06.0X0A Concussion without loss of consciousness, initial encounter (principal); I10 Essential (primary) hypertension; X58.XXXA Exposure to other specified factors, initial encounter
CPT/HCPCS: 36415; 70450; 71045; 71275; 80048; 84443; 84484; 85025; 85379; 93005; 96360; 99284; J7030; Q9967; A4216

== ENCOUNTER 2024-09-08 17:00 | Outpatient (RCR) | payer BC, SELFPAY ==
--- NOTE | 2024-05-19 16:31 | HP.PTEVAL_ITS ---
Patient's Visit Information Visit Information Visit Information: CHUYITA TIDWELL is a 48 year old F referred to Physical Therapy by Dr. Will Bejarano DPM with a diagnosis of R tib/fib Fx. Date of Evaluation: 05/14/24 Physical Therapist: Anupam Jimenez, PT, ATC Visit Plan Frequency: 2-3x /Week Duration: 4-6 Weeks Plan: R ankle PROM and mobs, stretching and strengthening, balance and proprio, gait training, stairs, and HEP Subjective Subjective: DOS: 12/08/23. Pt had a R tib/fib fracture at that time. Pt notes she fell off a ladder and landed on the ground. Pt reports she had to have a second surgery on her R LE secondary to a screw coming loose in her R foot 6 weeks after the initial surgery. Pt reports she has improved since the DOS, and has been walking without her Cam boot for the past 2 days. Pt reports her pain is getting better now all the time. Pt works at [employer] as a [employer], and is on her feet for 8 hours per day. Pt denies tingling or numbness in R LE at this time. Pt reports she has no had sleep difficulty secondary to pain. Pt reports she only took pain meds for 5 days since DOS. Pt has stairs at home and has to negotiate them one step at a time. Pt reports she lives by herself and is able to perform all house duties. 0/10 pain while sitting here in the clininc, 5/10 pain at worst (with prolonged ambulation.) Pain R ankle: Pain Intensity (Out of 10): Unrated Pain Intensity Range: 5 Objective Objective: Neuro: B LE sensation is WNL to light touch Observation: Incisions are healing. No signs of infection ROM: L ankle DF= 17, PF= 55 degrees; R ankle DF= -5, PF= 20 degrees MMT: L ankle DF= 5/5, PF= 5/5; R ankle DF= 3/5, PF= 3/5 TU sec Balance/Special Test Scores Lower Extremity Functional Score: 47 Goals Goal 1:: Decrease R ankle pain x 50% to aid with ambulation Goal Time Frame: 4-6 Weeks Goal 2:: Increase R ankle DF ROM x 10 degrees to aid with restoring a more normalized gait pattern Goal Time Frame: 4-6 Weeks Goal 3:: Increase R ankle strength x 1 grade to aid with returning to work Goal Time Frame: 4-6 Weeks Goal 4:: I with HEP Goal Time Frame: 4-6 Weeks Rehabilitation Potential Physical Therapy Diagnosis: R ankle pain, weakness, and limited ROM secondary to R ankle Fx Rehabilitation Potential: Good Anticipated Interventions Patient/Client Instruction: Educate patient on: Condition and Plan of Care For the Purpose of:: To improve self management Therapeutic Exercise to Include: Strength training, Endurance training, Balance training, Flexibilty training, Gait and locomotor training, Passive ROM and Active ROM For the Purpose of:: To decrease pain, To increase ROM and To improve muscle performance and motor function Cryotherapy (ice pack, ice massage): Yes For the Purpose of:: To decrease pain Text: Thank you for the opportunity to evaluate your patient. For Medicare and Medicare HMO plans, please review the plan of care and approve it. It will need to be FAXED BACK to us at [phone] for Medicare purposes. For Medicare only, by signing this I certify the plan of care. Please let me know if there are questions or concerns regarding this plan of care. Physician Signature: __Date:
--- NOTE | 2024-07-11 14:09 | HP.PTREVAL ---
Re-Evaluation Intro: Dr. Will Bejarano, DPM, It has been my pleasure to treat CHUYITA TIDWELL over the last 24 visits for R tib/fib Fx. Please see the progress note below for an update on the physical therapy plan of care! Subjective Subjective: I feel like I am getting better, but I still am not able to walk well. Objective Objective/Function: R ankle pain ranges from 2-6/10 R ankle MMT: DF= 21, PF= 37 #F; L ankle DF= 53, PF= 64 #F R ankle ROM: DF=0, PF= 25 degrees Pt continues to improve, but lacks functional strength and ROM in R LE Plan Plan Plan: 07/11/24- Cont with PT. focus on ankle DF/PF ROM and strengthening. Balance/Gait/Functional tests Balance/Special Test Scores Lower Extremity Functional Score: 46 Goals Goals Goal 1:: Decrease R ankle pain x 50% to aid with ambulation Goal Time Frame: 4-6 Weeks Goal Progress: Progressing Goal 2:: Increase R ankle DF ROM x 10 degrees to aid with restoring a more normalized gait pattern Goal Time Frame: 4-6 Weeks Goal Progress: Progressing Goal 3:: Increase R ankle strength DF to 31 #F and PF 57#F to aid with work duties Goal Time Frame: 4-6 Weeks Goal Progress: New goal Goal 4:: I with HEP Goal Time Frame: 4-6 Weeks Goal Progress: Goal Met Anticipated Interventions Anticipated Interventions Patient/Client Instruction: Educate patient on: Condition and Plan of Care For the Purpose of:: To improve self management Therapeutic Exercise to Include: Strength training, Endurance training, Balance training, Flexibilty training, Gait and locomotor training, Passive ROM and Active ROM For the Purpose of:: To decrease pain, To increase ROM and To improve muscle performance and motor function Cryotherapy (ice pack, ice massage): Yes For the Purpose of:: To decrease pain Re-Evaluation Ending Re-evaluation ending: Please do not hesitate to contact me at [phone] by phone or if you have questions or concerns regarding this new plan of care! Sincerely, Anupam Jimenez, PT, ATC
--- NOTE | 2024-08-11 16:32 | HP.PTREVAL ---
Re-Evaluation Intro: Dr. Will Bejarano, DPM, It has been my pleasure to treat CHUYITA TIDWELL over the last 32 visits for R tib/fib Fx. Please see the progress note below for an update on the physical therapy plan of care! Subjective Subjective: I am in severe pain today. I had to go to my doctor over the weekend due to my pain Objective Objective/Function: R ankle MMT: DF= 20, PF= 42 #F R ankle pain 3-4/10 R ankle PF ROM= 0 degrees Pt is I with HEP Pt was progressing well, but seems to have irritated her R foot while at work. is testing her ffor CRPS. Plan Plan Plan: Hold therapy until after pt gets injections and returns from vacation Balance/Gait/Functional tests Balance/Special Test Scores Lower Extremity Functional Score: 46 Goals Goals Goal 1:: Decrease R ankle pain x 50% to aid with ambulation Goal Time Frame: 4-6 Weeks Goal Progress: Progressing Goal 2:: Increase R ankle DF ROM x 10 degrees to aid with restoring a more normalized gait pattern Goal Time Frame: 4-6 Weeks Goal Progress: Progressing Goal 3:: Increase R ankle strength DF to 31 #F and PF 57#F to aid with work duties Goal Time Frame: 4-6 Weeks Goal Progress: New goal Goal 4:: I with HEP Goal Time Frame: 4-6 Weeks Goal Progress: Goal Met Anticipated Interventions Anticipated Interventions Patient/Client Instruction: Educate patient on: Condition and Plan of Care For the Purpose of:: To improve self management Therapeutic Exercise to Include: Strength training, Endurance training, Balance training, Flexibilty training, Gait and locomotor training, Passive ROM and Active ROM For the Purpose of:: To decrease pain, To increase ROM and To improve muscle performance and motor function Cryotherapy (ice pack, ice massage): Yes For the Purpose of:: To decrease pain Re-Evaluation Ending Re-evaluation ending: Please do not hesitate to contact me at [phone] by phone or if you have questions or concerns regarding this new plan of care! Sincerely, Anupam Jimenez, PT, ATC
== END 2024-09-08 19:00 | disposition home or self-care (01) ==
LOC: PT 17:00
PROVIDERS: PCP Preventive Medicine Occupational Medicine; Visit Provider Student in an Organized Health Care Education/Training Program
DX: S82.871S Displaced pilon fracture of right tibia, sequela (principal); S82.309 Unspecified fracture of lower end of unspecified tibia
CPT/HCPCS: 97110; 97140; 97161; 97530

== ENCOUNTER 2024-12-02 07:24 | Outpatient (RCR) | payer BC, SELFPAY ==
--- NOTE | 2024-12-02 11:56 | HP.OTFCE_ITS ---
Task Lift Floor (Occasional 1-33% of Day): 35 Floor (Frequent 34-66% of Day): 17.5 Floor (Constant 67-100% of Day): 7.36 Floor PDL: Light-Medium Knee (Occasional 1-33% of Day): 35 Knee (Frequent 34-66% of Day): 17.5 Knee (Constant 67-100% of Day): 7.36 Knee PDL: Light-Medium Waist (Occasional 1-33% of Day): 35 Waist (Frequent 34-66% of Day): 17.5 Waist (Constant 67-100% of Day): 7.36 Waist PDL: Light-Medium Shoulder (Occasional 1-33% of Day): 35 Shoulder (Frequent 34-66% of Day): 17.5 Shoulder (Constant 67-100% of Day): 7.36 Shoulder PDL: Light-Medium Overhead (Occasional 1-33% of Day): 25 Overhead (Frequent 34-66% of Day): 12.5 Overhead (Constant 67-100% of Day): 5.26 Overhead PDL: Light Comments: patient considered light-medium for floor, knee, waist, shoulder lift, and considered light for overhead Work Activity/Posture Bending: Frequent Ability (34-66% of day) Squatting: Frequent Ability (34-66% of day) Kneeling: No Ablility (0% of day) Reaching out: Constant Ability (67-100% of day) Reaching up: Constant Ability (67-100% of day) Sitting: Frequent Ability (34-66% of day) Walking: Occasional Ability (1-33% of day) Standing: Occasional Ability (1-33% of day) Reference Reference: Duration Sedentary Sedentary Light Light Light Medium Medium Medium Heavy Very Heavy Heavy Occasional (0-33% of day) Frequent (34-66% of day) Constant (67-100% of day) 10 # Negligible Negligible 15 # 8 # Negligible 20 # 10# Negli. 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 Pt has been working with pain management since 09/17 and has trials a variety of medications and an injection and a spinal stimulator. 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 Symptoms Symptoms: R toes numb; swelling in R ankle; sensitivity in scars; pain Pain Pain: 11/03 R ankle; pt takes Lyrica for pain pain alleviated with elevating foot Hussein pain questionnaire Work History Work History: Pt has worked at [employer] for 26 years; full-time; recently stopped working in 11/18 d/t pain/debility; pt reports she stands for 8 hours a day at work, climbs stairs, lifts 50 lbs Behavioral Behavioral: calm and cooperative -- talkative throughout FCE--- occ tearful ADLS ADLS: uses electric cart at the grocery store as needed; pt limited in driving d/t pain/swelling in R ankle; pt lives in a story home alone with 2 entry without a handrail; t/s combo with a transfer bench, standard toiled; pt has a hurrycane, crutches, w/w, and a rollator; pt uses hurrycane and crutches as needed for longer distances Physical Examination Physical Examination: HR 106 SPO2 99% Baseline prior to activity ROM: Bilateral UE WFL Bilateral LE limted AROM at the R ankle d/t scarring/edema; all other joints within functional limits Strength: measured using fet peak force Lower extremity: L hip flexion 50.8lbs R hip flexion 55.2 L quad flexion 44 R quad flexion 21.5 L hamstring (extension) 35 R hamstring (extension) 19 upper extremity: L shoulder flexion 23.4 R shoulder flexion 23.8 L biceps 49.2 R biceps 42 L triceps 37.7 R triceps 26 L shoulder external rotation 28 R shoulder external rotation 25.2 Right Mold Sheet Cleaner Strength Average: 58.66 Right Mold Sheet Cleaner Strength Percentile: 19 Left Mold Sheet Cleaner Strength Average: 66.66 Left Mold Sheet Cleaner Strength Percentile: 50 Right Lateral Pinch Average: 16.66 Right Lateral Pinch Percentile: 90 Left Lateral Pinch Average: 14.66 Left Lateral Pinch Percentile: 90 Right Tripod Pinch Average: 16.00 Right Tripod Pinch Percentile: 90 Left Tripod Pinch Average: 11.33 Left Tripod Pinch Percentile: 25 Sensation: Pt does report loss of sensation in R toes denies sensation issues of hands Fine Motor: denies issue Balance: 9in a reach between 6-10 inches equates to a moderate risk for falls Non Material Handling Activities Bending: trial of 3: 11/24 10x at own pace: 07/03 10x fast: 07/03 - no noticeable change in pace HR 136 bpm O2 99% 12/01 burning pain in R ankle; bends at waist, no external support used Squatting: trial of 3: 3 10x at own pace: 07/03 10x fast: 07/03 - no noticeable change in pace HR 150 bpm O2 99% squats to about jail -- use of unilateral external support on desk for s tability Pt increased RLE external rotation mid task to account for pain/limited flexion becomes tearful during task; uses table for external support throughout squatting task Kneeling: trial of 3: 2/3 Pt becomes tearful and is unable to complete safely complete kneeling task Reaching out/up: Reaching out: trial 3: 3 10x at own pace: 07/03 10x fast: 07/03 in standing HR 147 bpm O2 99% Reaching up: trial 3: 11/24 10x at own pace: 07/03 10x fast: 07/03 in standing HR 119 bpm O2 99% Walking: Pt able to complete 1 lap around therapy gym (494 ft); pt reports feeling SOB upon exertion; walks with no AD no LOB during mobility however slow pace and R LE externally rotated BP 144 bpm SPO2 99% Standing: during FCE noted pt able to stand for approx 15-20 min before taking seated RB --- would hold R LE up off of floor at times due to pain per pt report 20-30 minutes before needing seated RB Sitting: Pt reports she elevate LLE in sitting at all times; sitting in a non- reclining chair is limited to ~30 minutes during FCE intake pt is able to sit for 35 minutes no need for frequent change in positioning -- standard chair with arm rests Climbing Stairs: pt able to ascend/descend a flight of stairs with use of bilateral handrail (10); pt ascends with LLE leading and descends with RLE leading, step-to gait pattern on stairs and increased time needed to complete HR 133 bpm O2 99% Pt does report needing to climb multiple stairs for completion of current job duties -- pt reports these do have hand rails however some steps steeper than others Dynamic Occasional Lifting Capacity Floor Lift: Box (15) +20lbs = 35lbs Pt takes rest breaks between lifting and lowering box d/t pain; kicks RLE into external rotation HR 146 bpm and 02 99%; pain 2/10 Knee Lift: Box (15) +20lbs = 35 lbs Pt takes rest breaks between lifting and lowering box d/t pain; kicks RLE into external rotation HR 127 bpm and 02 99%; pain 2/10 Waist Lift: Box (15) +20lbs = 35 lbs able to take side step and come back no LOB maintains box at core HR 117 bpm and 02 98%; pain 2/10 Shoulder Lift: Box (15) +20lbs = 35 lbs HR 110 bpm and 02 99%; pain 2/10 Overhead Lift: Box (15) +10lbs = 25 lbs uncontrolled release at top to place box HR 123 bpm and 02 99%; pain 2/10 Carrying: Box (15) +20lbs = 35 lbs; pt able to ambulate 52 ft during carrying task HR 128 bpm and 02 96%; pain 3/10 Shortened RLE leg swing and external rotation and on lateral aspect of R foot noted throughout carrying task Comments: 4-5/10 pain after mobility and lifting tasks
== END 2024-12-02 19:00 | disposition home or self-care (01) ==
LOC: OT 07:24
PROVIDERS: PCP Preventive Medicine Occupational Medicine; Referring Provider Anesthesiology; Visit Provider Anesthesiology
DX: G90.521 Complex regional pain syndrome I of right lower limb (principal)
CPT/HCPCS: 97750

== ENCOUNTER 2025-01-27 13:30 | Outpatient (RCR) | payer BC, SELFPAY ==
--- NOTE | 2024-12-10 15:54 | HP.PTEVAL_ITS ---
Patient's Visit Information Visit Information Visit Information: CHUYITA TIDWELL is a 49 year old F referred to Physical Therapy by Dr. Will Bejarano DPM with a diagnosis of R LE pain CRPS. Date of Evaluation: 12/10/24 Physical Therapist: Anupam Jimenez, PT, ATC Visit Plan Frequency: 2-3x /Week Duration: 4-6 Weeks Plan: Aquatic therapy consisting of R ankle stretching and strengthening, core stab ex's Subjective Subjective: DOS 12/08/23. Pt reports she fractured her ankle at that time secondary to falling off a ladder. Pt reports she had 2 plates and 19 pins inserted into her R ankle. Pt had 2 other surgeries after that secondary to a pin coming out. Pt reports she had PT after that for approximately 5 months that was very painful. Pt reports her strength and function improved some after the surgery, but her pain only worsened. Pt reports she was referred to pain management after PT secondary to the lack of pain control. Pt had several treatments including meds and injections. Pt reports the only thing that helped her was Lyrica. Pt notes she is here today for aquatic therapy in order to help control her swelling and pain. Pt notes good sensation in R LE. Pt reports no sleep difficulty secondary to pain. Pt reports she has stairs at home that he has to negotiate sideways one step at a time. Pt reports she is on short term disability from work at this time secondary to being on her feet all day. 1/10 pain while sitting here at rest, 6/10 at worst Pain R ankle: Pain Intensity (Out of 10): 1 Pain Intensity Range: 6 Objective Objective: Neuro: B LE sensation is WNL to light touch. B patellar reflex= 2/3 ROM: L ankle DF= 11, PF= 50; R ankle DF= -5, PF= 30 degrees MMT: L ankle DF= 41, PF= 49 #F; R ankle DF= 18, PF= 22 #F Gait: Pt ambulates with antalgic gait pattern. Limp with R LE. Pt lacks heel strike with R LE TU.4 sec Balance/Special Test Scores Lower Extremity Functional Score: 33 Goals Goal 1:: Decrease R ankle pain x 25% to aid with tolerance for standing Goal Time Frame: 4-6 Weeks Goal 2:: Pt to perform TUG in under 12 seconds to aid with community efficiency Goal Time Frame: 4-6 Weeks Goal 3:: Pt will Increase R ankle DF ROM x 5 degrees to aid with ambulation Goal Time Frame: 4-6 Weeks Goal 4:: I with HEP Goal Time Frame: 4-6 Weeks Rehabilitation Potential Physical Therapy Diagnosis: Pt has R LE pain, weakness, and limited ROM secondary to R LE CRPS Rehabilitation Potential: Good Anticipated Interventions Patient/Client Instruction: Educate patient on: Condition and Plan of Care For the Purpose of:: To improve self management Therapeutic Exercise to Include: Strength training, Endurance training, Flexibilty training, In an aquatic setting and Dynamic Lumbar Stabilization For the Purpose of:: To decrease pain, To increase ROM and To improve muscle performance and motor function Text: Thank you for the opportunity to evaluate your patient. For Medicare and Medicare HMO plans, please review the plan of care and approve it. It will need to be FAXED BACK to us at [phone] for Medicare purposes. For Medicare only, by signing this I certify the plan of care. Please let me know if there are questions or concerns regarding this plan of care. Physician Signature: Date:
--- NOTE | 2025-01-20 14:52 | HP.PTREVAL ---
Re-Evaluation Intro: Dr. Will Bejarano, DPM, It has been my pleasure to treat CHUYITA TIDWELL over the last 8 visits for R LE pain CRPS. Please see the progress note below for an update on the physical therapy plan of care! Subjective Subjective: Pt reports she is walking much better with less pain. Pt reports the steroid injection she had 3 weeks ago has really helped. Objective Objective/Function: R ankle pain 2/10 R ankle DF ROM: 0 degrees TU sec Pt is able to ambulate 500 feet until needing to rest secondary to pain Plan Plan Plan: 01/20/25- cont with Aquatic therapy consisting of R ankle stretching and strengthening, core stab ex's Balance/Gait/Functional tests Balance/Special Test Scores Lower Extremity Functional Score: 33 Goals Goals Goal 1:: Decrease R ankle pain x 25% to aid with tolerance for standing Goal Time Frame: 4-6 Weeks Goal Progress: Goal Met Goal 2:: Pt to perform TUG in under 12 seconds to aid with community efficiency Goal Time Frame: 4-6 Weeks Goal Progress: Progressing Goal 3:: Pt will Increase R ankle DF ROM x 5 degrees to aid with ambulation Goal Time Frame: 4-6 Weeks Goal Progress: Goal Met Goal 4:: I with HEP Goal Time Frame: 4-6 Weeks Goal Progress: Progressing Goal 5:: Pt will be able to ambulate for 1000 feet in order to return to work with less limitations Goal Progress: New goals Anticipated Interventions Anticipated Interventions Patient/Client Instruction: Educate patient on: Condition and Plan of Care For the Purpose of:: To improve self management Therapeutic Exercise to Include: Strength training, Endurance training, Flexibilty training, In an aquatic setting and Dynamic Lumbar Stabilization For the Purpose of:: To decrease pain, To increase ROM and To improve muscle performance and motor function Re-Evaluation Ending Re-evaluation ending: Please do not hesitate to contact me at [phone] by phone or if you have questions or concerns regarding this new plan of care! Sincerely, Anupam Jimenez, PT, ATC
--- NOTE | 2025-05-19 09:08 | HP.PT.NRP ---
Patient Information Patient Information: CHUYITA TIDWELL was seen in my office for initial evaluation on 12/10/24. The following Plan of Care was established for this patient: POC Established Initial Frequency: 2-3x /Week Initial Duration: 4-6 Weeks Anticipated Interventions Patient/Client Instruction: Educate patient on: Condition and Plan of Care For the Purpose of:: To improve self management Therapeutic Exercise to Include: Strength training, Endurance training, Flexibilty training, In an aquatic setting and Dynamic Lumbar Stabilization For the Purpose of:: To decrease pain, To increase ROM and To improve muscle performance and motor function Last Seen Last Seen: This patient was last seen in our office . Pertinent comments regarding their Physical therapy will appear below: Pt has not returned in greater than 30 days and is discontinued at this time. At this point I will be discontinuing this patient from physical therapy. I would be happy to see this patient again in the future if found appropriate by the physician. Thank you! Anupam Jimenez, PT, ATC Balance/Gait/Functional tests Balance/Special Test Scores Lower Extremity Functional Score: 33
== END 2025-01-27 19:00 | disposition home or self-care (01) ==
LOC: PT 13:30
PROVIDERS: PCP Preventive Medicine Occupational Medicine; Visit Provider Student in an Organized Health Care Education/Training Program
DX: G90.521 Complex regional pain syndrome I of right lower limb (principal); Z98.890 Other specified postprocedural states
CPT/HCPCS: 97113; 97161

== ENCOUNTER → 2025-07-17 | Outpatient (CLI) | payer BC, SELFPAY | END | disposition home or self-care (01) | LOC: CVS 09:51 | PROVIDERS: PCP Nurse Practitioner Family; Referring Provider Physician Assistant; Visit Provider Physician Assistant | DX: R60.0 Localized edema (principal); M79.661 Pain in right lower leg | CPT/HCPCS: 93971 ==